=== PATIENT | male | born 1955 | race Caucasian/White ===

== ENCOUNTER 2021-11-26 09:30 | Outpatient (CLI) | payer MEDICARE, SELFPAY ==
[2021-11-26 13:27] LABS: Basophils Absolute Auto 0.04 K/uL (0.00-0.30); Basophils Percent Auto 0.7 % (0.0-3.0); Eosinophils Absolute Auto 0.02 K/uL (0.00-0.50); Eosinophils Percent Auto 0.3 % (0.0-7.0); Hematocrit 44.5 % (37.0-53.0); Hemoglobin* 14.9 gm/dL (13.5-17.5); Immature Granulocytes Abs Auto 0.01 K/uL (0.00-0.30); Lymphocytes Percent Auto 19.1 % (20-44); Mean Corpuscular HGB Conc 34 gm/dL (32-36); Mean Corpuscular Hemoglobin 32 pg (26-34); Mean Corpuscular Volume 96 fL (80-100); Monocytes Percent Auto 7.3 % (0.0-11.0); Neutrophils Percent Auto 72.4 % (42.0-72.0); Platelet Count* 252 K/uL (140-440); RDW Coefficient of Variation % 11.9 % (11.5-15.5); Red Blood Count 4.65 m/uL (4.30-5.90); White Blood Count* 5.91 K/uL (4.50-11.00)
[2021-11-26 13:33] LABS: Albumin* 4.4 g/dL (3.3-5.0); Chloride* 103 mmol/L (96-114)
[2021-11-26 13:34] LABS: Potassium* 4.8 mmol/L (3.6-5.1)
[2021-11-26 13:36] LABS: Aspartate Amino Transferase* 41 U/L (12-35); Bilirubin Total* 0.4 mg/dL (0.1-1.5); Blood Urea Nitrogen* 16 mg/dL (7-30); Carbon Dioxide* 28 mmol/L (20-32); Cholesterol* 208 mg/dL (90-199); Creatinine* 0.9 mg/dL (0.5-1.5); Estimated Glomerular Filt Rate 94 ml/min; Glucose* 116 mg/dL (60-115); Total Protein* 7.3 g/dL (6.0-8.3)
[2021-11-26 13:37] LABS: Alanine Aminotransferase* 49 U/L (4-50); Alkaline Phosphatase* 103 U/L (40-150); Calcium* 9.8 mg/dL (8.4-10.6); HDL Cholesterol* 61 mg/dL (>=40); LDL Cholesterol Calculated 116 mg/dL (<100); Triglycerides* 153 mg/dL (40-149)
[2021-11-26 13:42] LABS: Slide Review Reflex No
[2021-11-26 14:06] LABS: PSA Screen* 0.49 ng/mL (0.10-4.00)
[2021-11-26 14:39] LABS: Troponin I* < 0.01 ng/mL (0.01-0.04)
[2021-11-26 15:01] LABS: Sodium* 140 mmol/L (135-149)
[2021-12-01 13:51] LABS: Hemoglobin A1C* 5.47 % (0-5.6)
== END 2021-11-26 09:31 | disposition home or self-care (01) ==
PROVIDERS: PCP Nurse Practitioner Family; Visit Provider Nurse Practitioner Family
DX: Z00.00 Encounter for general adult medical examination without abnormal findings (principal); E78.5 Hyperlipidemia, unspecified; R07.89 Other chest pain; I10 Essential (primary) hypertension; R53.83 Other fatigue; Z12.5 Encounter for screening for malignant neoplasm of prostate; Z79.899 Other long term (current) drug therapy
CPT/HCPCS: 36415; 80053; 80061; 83036; 84153; 84484; 85025

== ENCOUNTER 2021-12-08 12:55 | Outpatient (CLI) | payer OTHER, SELFPAY ==
--- NOTE | 2021-12-08 13:00 | CRLHL7_ITS ---
For Patients: As a result of the Cures Act, medical imaging exams and procedure reports are released immediately into your electronic medical record. You may view this report before your referring provider. If you have questions, please contact your health care provider. BILATERAL CAROTID ULTRASOUND CLINICAL HISTORY: Atherosclerosis. COMPARISON: None. TECHNIQUE: The carotid circulations and the vertebral arteries in the neck were examined with larson-scale ultrasound, color-flow and Doppler spectral analysis. Degrees of stenosis were determined using SRU 2002 Consensus Panel Criteria. FINDINGS: No significant plaque in the carotid arteries. Bilateral peak systolic velocities and ICA:CCA ratios are normal. Antegrade flow in the bilateral vertebral arteries. Waveforms are normal. PEAK SYSTOLIC VELOCITY RIGHT: Distal CCA: 59. Proximal ICA: 37. Mid-ICA: 47. Distal ICA: 68. ICA/CCA Ratio: 1.2. Vertebral artery: Antegrade 24. LEFT: RIGHT: Distal CCA: 40. Proximal ICA: 53. Mid-ICA: 52. Distal ICA: 66. ICA/CCA Ratio: 1.6. Vertebral artery: Antegrade 27. IMPRESSION: No evidence of plaque in the carotid arteries. Paulino Cummings M.D. Diagnostic/Musculoskeletal Radiologist [email or web address] GREGG/Dictated by: Paulino Cummings MD @ 12/08/2021 2:02:00 PM (Electronically Signed)
[2021-12-08] MEDS: PERFLUTREN LIPID MICROSPHERES 2 ML VIAL IV (16:15)
[2021-12-08 16:44] VITALS: BP 164/93
--- NOTE | 2021-12-08 16:58 | PM.ST ---
Stress Test Note Date Date of test: 12/08/21 Providers Referring provider: Malissa Zuñiga Primary care provider: Malissa Zuñiga Stress test physician: Narciso Quiroga Stress Test Note Stress test ordered: Stress Echo Indication for test: Chest pain Results discussion: This pleasant 66-year-old gentleman presents here for evaluation of chest pain as ordered by his primary care physician. Discussion the risks benefits side effects he would like to proceed pretest EKG shows normal sinus rhythm with a ventricular rate of 76 a blood pressure 146/88, there is some ST wave flattening noted throughout the precordium significance of which is unknown. Cardiac stress test medical history form is reviewed entirely. Following normal [place] protocol patient is exercised for a total time of 6 minutes 2 seconds, test is terminated because of fulfillment of protocol, there was some fatigue but no specific anginal equivalent such as chest pain shortness of breath was noted. He recovered normally in the recovery period, review of the tracing showed no evidence of ST wave changes suggestive of ischemia, there is no dysrhythmias. Impression: Negative electrographic portion of stress echo Follow up suggested: Follow-up with primary care suggested after Cardiology over read of the echo portion, clinical correlation with this will be needed, patient left this testing facility in excellent condition back to baseline
== END 2021-12-08 12:56 | disposition home or self-care (01) ==
PROVIDERS: PCP Nurse Practitioner Family; Visit Provider Nurse Practitioner Family
DX: R09.89 Other specified symptoms and signs involving the circulatory and respiratory systems; R07.9 Chest pain, unspecified; R53.83 Other fatigue; I10 Essential (primary) hypertension; E78.5 Hyperlipidemia, unspecified
CPT/HCPCS: 93325; 93351; 93880; Q9957

== ENCOUNTER 2022-02-09 10:19 | Outpatient (CLI) | payer MEDICARE, SELFPAY ==
--- NOTE | 2022-02-09 11:32 | W.ANESCHARGE ---
Anesthesia Charges Start Date/Time Anesthesia Start Date: 02/09/22 Anesthesia Start Time: 11:15 Stop Date/Time Anesthesia Stop Date: 02/09/22 Anesthesia Stop Time: 11:45 Summary Emergency: No
--- NOTE | 2022-02-09 11:46 | W.ANESCHARGE ---
Anesthesia Charges Start Date/Time Anesthesia Start Date: 02/09/22 Anesthesia Start Time: 11:15 Stop Date/Time Anesthesia Stop Date: 02/09/22 Anesthesia Stop Time: 11:45 Summary Emergency: No
== END 2022-02-09 10:20 | disposition home or self-care (01) ==
LOC: OP CLINIC 10:20
PROVIDERS: PCP Nurse Practitioner Family; Visit Provider Surgery
DX: K22.70 Barrett's esophagus without dysplasia (principal); K22.89 Other specified disease of esophagus; K92.2 Gastrointestinal hemorrhage, unspecified
CPT/HCPCS: 00731; 43239; 88305; J2704

== ENCOUNTER 2023-03-07 08:36 | Outpatient (CLI) | payer MEDICARE, SELFPAY | END 2023-03-07 08:37 | disposition home or self-care (01) | PROVIDERS: PCP Nurse Practitioner Family; Visit Provider Nurse Practitioner Family | DX: M54.9 Dorsalgia, unspecified (principal) | CPT/HCPCS: 87086 ==

== ENCOUNTER 2023-04-19 09:27 | Outpatient (CLI) | payer MEDICARE, SELFPAY | END 2023-04-19 09:28 | disposition home or self-care (01) | PROVIDERS: PCP Nurse Practitioner Family; Visit Provider Nurse Practitioner Family | DX: Z00.00 Encounter for general adult medical examination without abnormal findings (principal); I10 Essential (primary) hypertension; E78.5 Hyperlipidemia, unspecified; Z12.5 Encounter for screening for malignant neoplasm of prostate; Z13.0 Encounter for screening for diseases of the blood and blood-forming organs and certain disorders involving the immune mechanism | CPT/HCPCS: 80053; 80061; 85025; G0103 ==

== ENCOUNTER 2023-04-22 07:32 | Outpatient (CLI) | payer MEDICARE, SELFPAY | END 2023-04-22 07:33 | disposition home or self-care (01) | PROVIDERS: PCP Nurse Practitioner Family; Visit Provider Nurse Practitioner Family | DX: R07.89 Other chest pain (principal) | CPT/HCPCS: 83880; 84484 ==

== ENCOUNTER 2023-05-09 13:19 | Outpatient (CLI) | payer MEDICARE, SELFPAY | END 2023-05-09 13:20 | disposition home or self-care (01) | PROVIDERS: PCP Nurse Practitioner Family; Visit Provider Nurse Practitioner Family | DX: R06.02 Shortness of breath (principal); N19 Unspecified kidney failure | CPT/HCPCS: 80048; 83880 ==

== ENCOUNTER 2023-08-10 12:50 | Outpatient (CLI) | payer MEDICARE, SELFPAY ==
--- NOTE | 2023-08-10 13:00 | CT_ITS ---
Patient: PARTH AQUINO Facility:?[facility] Patient ID:?[id number] Site Patient ID:?[id number]. Site :?[id number] Study:?CT-Chest LUNG SCREENING-08/10/2023 1:20:46 PM Ordering Physician:SHAWN Final Report: INDICATION: Lung cancer screening. TECHNIQUE: Low-dose lung cancer screening non-contrast CT chest. Dose reduction techniques were used. COMPARISON: None. FINDINGS: NODULES: 5 millimeter right middle lobe nodule medially few additional tiny micro nodules. A 4 millimeter nodule along the left major fissure on a 4 millimeter peripheral left lower lobe nodule on 06/09 14. A 4 millimeter right lower lobe nodule on LUNGS AND PLEURA: Normal. MEDIASTINUM: Ectasia of the ascending thoracic aorta measuring 3.8 centimeter median sternotomy. Heart size normal. CORONARY ARTERY CALCIFICATION: Dense coronary artery calcification. LIMITED UPPER ABDOMEN: Cholecystectomy MUSCULOSKELETAL: Normal. IMPRESSION: 1. Several pulmonary nodules measuring up to 5 millimeters and micro nodules. LUNG-RADS CATEGORY: 2: Benign. RADIOLOGIST RECOMMENDATION: Continue annual screening with low-dose CT chest in 12 months. Please note that all CT scans at this facility use dose modulation, iterative reconstruction, and/or weight-based dosing when appropriate to reduce radiation dose to as low as reasonably achievable. Dictated by Marilyn Cardenas MD @ 08/11/2023 6:03:19 AM Signed by:?Marilyn Cardenas MD @08/11/2023 6:03:19 AM (Electronic Signature)
== END 2023-08-10 12:51 | disposition home or self-care (01) ==
LOC: CT 12:51
PROVIDERS: PCP Nurse Practitioner Family; Visit Provider Nurse Practitioner Family
DX: Z12.2 Encounter for screening for malignant neoplasm of respiratory organs (principal); R91.8 Other nonspecific abnormal finding of lung field; F17.210 Nicotine dependence, cigarettes, uncomplicated
CPT/HCPCS: 71271

== ENCOUNTER 2023-08-12 09:47 | Outpatient (CLI) | payer MEDICARE, SELFPAY | END 2023-08-12 09:48 | disposition home or self-care (01) | PROVIDERS: PCP Nurse Practitioner Family; Visit Provider Nurse Practitioner Family | DX: E78.5 Hyperlipidemia, unspecified (principal) | CPT/HCPCS: 80061; 80076 ==

== ENCOUNTER 2023-11-22 08:13 | Outpatient (CLI) | payer MEDICARE, SELFPAY | END 2023-11-22 08:14 | disposition home or self-care (01) | PROVIDERS: PCP Nurse Practitioner Family; Visit Provider Nurse Practitioner Family | DX: E78.5 Hyperlipidemia, unspecified (principal) | CPT/HCPCS: 80061; 80076 ==

== ENCOUNTER 2023-12-29 07:27 | Outpatient (CLI) | payer OTHER, SELFPAY ==
--- OUTSIDE RECORDS SUMMARY | 2023-12-29 07:33 | XMS_ITS | Referral Summary ---
Author Organization [facility] Address [address] [place] [address] Care Team Providers Care Fish Egg Packer Name Role Phone Elsewhere, Pcp Primary Care Provider Unavailabl e Source Comments Patient records contain information from all sites at [facility]. For routine questions regarding patient records, call [phone] during business hours, M-F 8:00 AM - 5:00 PM Central Time. Record requests for emergency care only can be directed to [phone] at any time.[facility] Encounters Date Type Department Care Team Description 12/11/2023 8:31 PM CDT - 12/11/2023 9:44 PM CDT Emergency [facility] [address] [place] [phone] Demetrius Monroe, P.A.-C. Laceration Without Foreign Body Right Index Finger Without Damage To Nail Initial (Primary Dx) Discharge Disposition: Home or Self Care 10/31/2023 Clinical Communication Department of Nicotine Dependence, [facility], in [place], [place] [address] [place] [address] Inna Olivares M.A., C.T.T.S., M.S.W. Nicotine Dependence from Last 3 Months Allergies Active Allergy Reactions Criticality Noted Date Comments Phenytoin Sodium Extended Headache High 08/08/2009 Severe Hydromorphone Other (see comments) Medium 06/25/2015 Bad dreams Medications Medication Sig Dispensed Refills Start Date End Date Status aspirin 81 mg chewable tablet Chew 1 tablet every morning. 04/23/2015 Active traMADoL (ULTRAM) 50 mg tablet Take 50 mg by mouth 2 (two) times a day as needed. 12/24/2020 Active omeprazole (PriLOSEC OTC) 20 mg EC tablet Take ONE a day for GERD as needed 05/22/2018 Active MULTIVITAMIN WITH IRON ORAL Multiple Vitamins with Iron oral tablet See Instructions, one capsule per day 07/07/2013 Active nicotine (Nicoderm CQ) 7 mg/24 hr patch Apply 21 mg patch daily for 4-6 weeks, then taper by 7-14 mg steps every 2-6 weeks until off. Pharmacy - Place on file 28 patch 3 04/26/2023 Active Additional Information Patient not taking.Reported on 07/27/2023 nicotine (Nicoderm CQ) 14 mg/24 hr patch Apply 21 mg patch daily for 4-6 weeks, then taper by 7-14 mg steps every 2-[address] on file 28 patch 3 04/26/2023 Active nicotine (Nicoderm CQ) 21 mg/24 hr patch Apply 21 mg patch daily for 4-6 weeks, then taper by 7-14 mg steps every 2-6 weeks until off. 28 patch 3 04/26/2023 Active Additional Information Patient not taking.Reported on 07/27/2023 acetaminophen (TYLENOL) 500 mg tablet Take 2 tablets (1,000 mg total) by mouth 4 (four) times a day. 05/05/2023 Active melatonin 5 mg tablet Take 1 tablet (5 mg total) by mouth at bedtime as needed (Sleep). 30 tablet 2 05/05/2023 Active Additional Information Patient not taking.Reported on 07/27/2023 sennosides-docusa te sodium (SENOKOT-S) 8.6-50 mg per tablet Take 2 tablets by mouth 2 (two) times a day as needed for constipation. 05/05/2023 Active metoprolol tartrate (LOPRESSOR) 50 mg tablet Take 1 tablet (50 mg total) by mouth 2 (two) times a day. 60 tablet 11 05/05/2023 Active furosemide (LASIX) 20 mg tablet Take 2 tablets (40 mg total) by mouth daily for 7 days. Take for seven days, then to be reassessed by primary care provider. 14 tablet 05/05/2023 Active potassium chloride (K-TAB) 20 mEq CR tablet Take 1 tablet (20 mEq total) by mouth daily. Take for 7 days with course of Lasix, continuation at discretion of PCP. 30 tablet 05/05/2023 Active nicotine (Nicoderm CQ) 7 mg/24 hr patch Apply 21 mg patch daily for 4-6 weeks, then taper by 7-14 mg steps every 2-6 weeks until off. Pharmacy - Place on file 28 patch 3 06/14/2023 Active Additional Information Patient not taking.Reported on 07/27/2023 lisinopriL (PRINIVIL,ZESTRIL ) 5 mg tablet Take 5 mg by mouth daily. 06/13/2023 Active colchicine (COLCRYS) 0.6 mg tablet Take 1 tablet (0.6 mg total) by mouth daily. 30 tablet 2 07/27/2023 07/26/2024 Active rosuvastatin (CRESTOR) 40 mg tablet Take 1 tablet (40 mg total) by mouth daily. 90 tablet 3 07/27/2023 07/26/2024 Active ezetimibe (ZETIA) 10 mg tablet Take 1 tablet (10 mg total) by mouth daily. 90 tablet 3 07/28/2023 07/27/2024 Active nicotine (NICODERM CQ) 14 mg/24 hr patch Apply 14 mg patch daily for four to six weeks, then taper to 7 mg for two to six weeks until off. 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 Overview (04/09/2019): Added automatically from request for surgery [id number] Hematochezia 04/09/2019 Overview (04/09/2019): Added automatically from request for surgery [id number] Hypertension 03/17/2010 Pain Back Resolved Problems Problem Noted Date Diagnosed Date Resolved Date Acute Metabolic Acidosis 04/28/2023 Leukocytosis 04/28/2023 05/03/2023 Immunizations Name Administration Dates Next Due SARS-COV-2 (COVID-19) - PFIZ ER (Discontinued)(12 years or older) 07/15/2020,06/20/2020 Td (Adult), adsorbed 12/09/2008 Tdap 12/11/2023 Social History Tobacco Use Types Packs/Day Years Used Date Smoking Tobacco: Former Cigarettes 0.3 56.1 0 04/11/1967 - 05/12/2023 Smokeless Tobacco: Never Alcohol Use Standard Drinks/Week Comments Yes 7 (1 standard drink = 0.6 oz pur e alcohol) [facility] Utilities Answer Date Recorded In the past 12 months has [facility] gas, oil, or water [employer] threatened to shut off services in your home? No 05/02/2023 Humiliation, Afraid, Rape, and Kick questionnair e Answer Date Recorded Within the last year, have y ou been afraid of your partner or ex-partner? No 05/02/2023 Within the last year, have y ou been humiliated or emotionally abused in other ways by your partner or ex-partner? No Within the last year, have y ou been kicked, hit, slapped, or otherwise physically hurt by your partner or ex-partner? No 05/02/2023 Within the last year, have y ou been raped or forced to have any kind of sexual activity by your partner or ex-partner? No 05/02/2023 PHQ-2 Answer Date Recorded PHQ-2 Score 1 05/17/2023 Hunger Vital Sign Answer Date Recorded Within the past 12 months, y ou worried that your food would run out before you got the money to buy more. Never true 05/02/19 24 Within the past 12 months, t he food you bought just didn't last and you didn't have money to get more. Never true 05/02/2023 PRAPARE - Transportation Answer Date Re corded In the past 12 months, has l ack of transportation kept you from medical appointments or from getting medications? No 04/12 In the past 12 months, has l ack of transportation kept you from meetings, work, or from getting things needed for daily living? No 05/02/2023 Depression Answer Date Recor ded PHQ-9 Total Score (max 27) 6 05/17 Nutrition Answer Date Recorded Nutrition: EVOO Fat Source 13 11/05 Nutrition: Servings of Fruits/Vegetables per Day Not on file 11/06/2019 Dental Answer Date Recorded Dental: Regular Dentist Unknown 06/06/19 21 Housing Stability Answer Date Recorded What is your living situation today? I have a [facility] place to live 05/02/2023 Sex and Gender Information Value Date Recorded Sex Assigned at Not on file Gender Identity Not on file Sexual Orientation Not on file Last Filed Vital Signs Vital Sign Reading Time Taken Comments Blood Pressure 103/66 12/11/2023 8:35 PM CDT Pulse 82 12/11/2023 8:35 PM CDT Temperature 36.2 ??C (97.2 ??F) 12/11/2023 8:35 PM CD T Respiratory Rate 18 12/11/2023 8:35 PM CDT Oxygen Saturation 97% 12/11/2023 8:35 PM CDT Inhaled Oxygen Concentration - - Weight 100 kg (220 lb 7.4 oz) 12/11/2023 8:33 PM CDT Height 172 cm (5' 7.72) 04/28/2023 7:37 AM MOVEMENT THERAPIST Body Mass Index 33.8 04/28/2023 7:37 AM MOVEMENT THERAPIST Plan of Treatment Not on file Medical Devices Implanted Type Area Technician Anatomic Pathology Device Identifier Shelf Expiration Date Model / Serial / Lot Conversions - Default Historical Implant Device Implanted:01/10 (Quantity not on file) Aneurysm Clip Description:Device Status Te xt - AneurClip. [place] Screw 2 Canc 6.5 X 35 - [id number] Implanted:Qty: 2 on 03/18/2010 Hardware e.g. pins/screw s/rods Matt [employer] - [employer] Description:Device Manufactu rer - J & J Ortho. Device Status Text - [id number]. Clp Hrzn Ti 24 Clp Ricardo - [id number] Implanted:Qty: 1 on 04/28/2023 by Jc Pan M.D. at [facility] Hardware e.g. pins/screw s/rods N/A: Chest [employer] [id number] / / Clp Hrzn Ti 24 Clp Sm Red - [id number] Implanted:Qty: 1 on 04/28/2023 by Jc Pan M.D. at [facility] Hardware e.g. pins/screw s/rods N/A: Chest [employer] [id number] / / Clp Hrzn Ti 24 Clp Sm Red - [id number] Implanted:Qty: 1 on 04/28/2023 by Jc Pan M.D. at [facility] Hardware e.g. pins/screw s/rods N/A: Chest [employer] [id number] / / Clp Hrzn Ti 24 Clp Md Ricardo - [id number] Implanted:Qty: 1 on 04/28/2023 by Jc Pan M.D. at [facility] Hardware e.g. pins/screw s/rods N/A: Chest [employer] [id number] 01/25/2028 [id number] / / [id number] [place] Shell Multi 2 60mm - Cheng [id number] Implanted:Qty: 1 on 03/18/2010 Hip Implant Other/Legacy - See Implant Description [employer] Description:Device Manufactu rer - J & J Ortho. Body Location - Other. Left. Device Status Text - [id number] [id number]. [place]-Stem [place] 7 Std - Cheng [id number] Implanted:Qty: 1 on 03/18/2010 Hip Implant Other/Legacy - See Implant Description [employer] Description:Device Manufactu rer - J & J Ortho. Body Location - Other. Left. Device Status Text - [id number] [id number]. Dep. Head M-Spec 40mm -2 Offset - Cheng [id number] Implanted:Qty: 1 on 03/18/2010 Hip Implant Other/Legacy - See Implant Description [employer] Description:Device Manufactu rer - J & J Ortho. Body Location - Other. Left. Device Status Text - [id number] [id number]. [place] Liner Altrx +4 Neut 40x60 - Cheng [id number] Implanted:Qty: 1 on 03/18/2010 Hip Implant Other/Legacy - See Implant Description [employer] Description:Device Manufactu rer - J & J Ortho. Body Location - Other. Left. Device Status Text - HIP [id number]. Conversions - Default Historical Implant Device Implanted:01/10 (Quantity not on file) Hip Implant Description:Device Status Te xt - Hip Imp. Peg-Global [place] Glenoid Sz 52 - Cheng [id number] Implanted:Qty: 1 on 04/24/2015 Shoulder Implant Other/Legacy - See Implant Description [employer] Description:Device Manufactu rer - J & J Healthcare. Body Location - Other. Left. Device Status Text - [id number]. Global-Deedee Prox [place] 12 X 135 - Cheng [id number] Implanted:Qty: 1 on 04/24/2015 Shoulder Implant Other/Legacy - See Implant Description Internet [employer] - [employer] Description:Device Manufactu rer - J & J Healthcare. Body Location - Other. Left. Device Status Text - [id number]. Stem Global Standard Sz 12 X 120mm - Cheng [id number] Implanted:Qty: 1 on 04/24/2015 Shoulder Implant Other/Legacy - See Implant Description [employer] Description:Device Manufactu rer - J & J Healthcare. Body Location - Other. Left. Device Status Text - [id number]. J J Global Head Humeral 56 X 18mm Ecc. - Cheng [id number] Implanted:Qty: 1 on 04/24/2015 Shoulder Implant Other/Legacy - See Implant Description Internet [employer] - [employer] Description:Device Manufactu rer - J & J Healthcare. Body Location - Other. Left. Device Status Text - [id number]. Procedures Procedure Name Priority Date/Time Associated Diagnosis Comments LIPID PANEL, S Routine 07/27/2023 9:20 AM CDT Bypass Coronary Artery Graft Status Post Hyperlipidemia BASIC METABOLIC PANEL, S/P Routine 05/05/2023 8:13 AM MOVEMENT THERAPIST COLONOSCOPY 06/04/2019 8:[address] ABDOMEN PELVIS WITH IV CONTRAST Routine 06/25/2015 6:25 AM CDT from Last 3 Months or Most Recently Relevant to Health Maintenance Results * Lipid Panel (07/27/2023 9:20 AM CDT) Triglycerides 111 mg/dL 07/27/2023 9:52 AM CDT CNFL Comment: ----REFERENCE VALUE---- Normal: <150 mg/dL Borderline High: 150-199 mg/dL High: 200-499 mg/dL Very High: > or =500 mg/dL Cholesterol, Total 173 mg/dL 2023 9:52 AM CDT CNFL Comment: ----REFERENCE VALUE---- Desirable: < 200 mg/dL Borderline High: 200 - 239 mg/dL High: > or = 240 mg/dL Cholesterol, LDL, Calculated 93 mg/dL 07/27/2023 9:52 AM CDT CNFL Comment: ----REFERENCE VALUE---- Desirable: <100 mg/dL Above Desirable: 100-129 mg/dL Borderline High: 130-159 mg/dL High: 160-189 mg/dL Very High: >=190 mg/dL ----ADDITIONAL INFORMATION---- LDL cholesterol calculated using the Hernandez/NIH equation. Cholesterol, HDL 60 >=40 mg/dL 07/27/2023 9:52 AM CDT CNFL Cholesterol, Non-HDL, Calculated 113 mg/dL 07/27/2023 9:52 AM CDT CNFL Comment: ----REFERENCE VALUE---- Desirable: <130 mg/dL Above Desirable: 130-159 mg/dL Borderline High: 160-189 mg/dL High: 190-219 mg/dL Very High: > or =220 mg/dL Fasting (8 HR or more) Unknown 07/27/2023 9:23 AM CDT CNFL Blood (Blood, Venous) 07/27/2023 9:20 AM CDT 07/27/2023 9:23 AM CDT Tal Roque M.D. LAB BLOOD ADD-ON [facility] [address] [place] [id number], [place] CNFL [facility] in [address] [address] * (ABNORMAL) Basic Metabolic Panel (05/05/2023 8:13 AM MOVEMENT THERAPIST) Potassium, S 3.5(L) 3.6 - 5.2 mmol/L 05/05/2023 9:33 AM MOVEMENT THERAPIST DTL Sodium, S 139 135 - 145 mmol/L 05/05/2023 9:33 AM MOVEMENT THERAPIST DTL Chloride, S 99 98 - 107 mmol/L 05/05/2023 9:33 AM MOVEMENT THERAPIST DTL Bicarbonate, S 28 22 - 29 mmol/L 05/05/2023 9:33 AM MOVEMENT THERAPIST DTL Anion Gap 12 7 - 15 05/05/2023 9:33 AM MOVEMENT THERAPIST DTL BUN (Blood Urea Nitrogen), S 11 8 - 24 mg/dL 05/05/2023 9:33 AM MOVEMENT THERAPIST DTL Creatinine 0.92 0.74 - 1.35 mg/dL 05/05/2023 9:33 AM MOVEMENT THERAPIST DTL Estimated GFR (eGFR) >90 >=60 mL/min/BSA 05/05/2023 9:33 AM MOVEMENT THERAPIST DTL Comment: Estimated GFR calculated using the 2020 CKD_EPI creatinine equation. Calcium, Total, S 8.9 8.8 - 10.2 mg/dL 05/05/2023 9:33 AM MOVEMENT THERAPIST DTL Glucose, S 160(H) 70 - 140 mg/dL 05/05/2023 9:33 AM MOVEMENT THERAPIST DTL Blood (Blood, Arterial) 05/05/2023 8:13 AM MOVEMENT THERAPIST 05/05/2023 8:49 AM MOVEMENT THERAPIST Kanu Thayer P.A.-C. LAB BLOOD ADD- ON [facility] [address] [place] [address], [facility] DTL [facility] [address] [place] [address] * COLONOSCOPY (06/04/2019 8:36 AM MOVEMENT THERAPIST) Narrative Procedure Note Timothy Kaba M.D. - 06/04/2019 8:36 AM CST [facility] Patient Name: Arthur Arambula Procedure Date: 06/04/2019 8:36 AM Date of : 1955 Age: 64 Gender: Male Procedure: Colonoscopy Providers: Timothy Zarco (Ordering Provider) Referring Provider: Timothy Kaba Pre-op Diagnoses: Hematochezia--One episode lasting for threedays Post-op Diagnoses: - One 7 mm polyp at the splenic flexure, removed with a cold snare. Resected and retrieved. - One 2 mm polyp in the cecum, removed with a cold snare. Resectedand retrieved. - Diverticulosis from sigmoid to hepatic flexure. - The examination was otherwise normal. Recommendation: - Repeat colonoscopy in 5 years for surveillance with split-dose prep (not all at once). Findings: A 7 mm polyp was found in the splenic flexure. The polyp was flat.The polyp was removed with a cold snare. Resection and retrieval were complete. A 2 mm polyp was found in the cecum. The polyp was sessile. The polyp was removed with a cold snare. Resection and retrieval werecomplete. Multiple medium-mouthed diverticula were found from sigmoid tohepatic flexure. The exam was otherwise without abnormality. Medicines: None, in addition to sedation given for the EGD Complications: No immediate complications. Estimated blood loss: Minimal. Procedure Details: The patient was seen, evaluated, and history reviewed. Airway and heart and lung exams were performed and were satisfactory for plannedsedation care. The risks, benefits and alternatives for the procedure and sedation were discussed andinformed consent was obtained. A procedural pause was conducted in the presence of assisting personnelto verify the correct patient identity and procedureto be performed. Throughout the procedure, the patient's blood pressure, pulse, and oxygen saturations were monitored continuously. The Colonoscope was introduced under directvision through the anus and advanced to the terminalileum. The colonoscopy was performed with ease. Thepatient tolerated the procedure well. The quality of the bowel preparation was evaluated using the BBPS ([place] Bowel Preparation Scale) with scores of: Right Colon = 1 (portion of mucosa seen, butother areas not well seen due to staining, residualstool and/or opaque liquid), Transverse Colon = 2(minor amount of residual staining, small fragments of stool and/or opaque liquid, but mucosa seen well) and Left Colon = 1 (portion of mucosa seen, but other areas not well seen due to staining,residual stool and/or opaque liquid). The total BBPS score equals 4. Sedation: Moderate (conscious) sedation was administered by the endoscopy nurse and supervised by the endoscopist. The patient's oxygen saturation, heart rate, blood pressure and response to care were monitored. Total physician intraservice time was 30 minutes. Timothy Kaba, 06/04/2019 9:05:09 AM This report has been signed electronically. Number of Addenda: 0 Note Initiated On: 06/04/2019 8:36 AM Timothy Kaba M.D. GI PROCEDURE ORDER [facility] * CT Abdomen Pelvis with IV Contrast (06/25/2015 6:25 AM CDT) Anatomical Region Laterality Modality Abdomen, Pelvis N/A Computed Tomogra phy 06/25/2015 6:25 AM CDT Impressions 06/25/2015 10:15 AM CDT 1. Negative for acute pulmonary embolism. 2. Probable dropped gallstone. ??No abscess or bowel obstruction. CHEST: ??Negative for acute pulmonary embolism. No focal consolidation, pleural fluid, or pneumothorax. Scarring or atelectasis in both lung bases. Mild diffuse bronchial wall thickening. 8 mm right middle lobe pulmonary nodule, unchanged since 04/11/2009 consistent with benignity. Probable 7 mm fissural lymph node (series 7, image 132) but this is technically indeterminate. 7 mm right lower lobe pulmonary nodule is also benign and unchanged since 04/11/09 (7/204). ??Several prominent mediastinal axillary lymph nodes may be reactive. Bovine aortic arch, a normal variant. Coronary artery calcifications. Left TSA. ABDOMEN/PELVIS: ??Interval cholecystectomy and umbilical hernia repair since 06/02/2015. Negative for postoperative fluid collection or bowel obstruction. No free intraperitoneal air. ??Tiny calcific density adjacent to the anteroinferior liver (series 2, image 30 and series 3, image 24) worrisome for dropped gallstone. Mild postoperative fluid and edema about the umbilical hernia repair site. Remainder unchanged. Hepatic steatosis. Duodenal diverticuli. Normal pancreas, adrenal glands, and spleen. Colonic diverticulosis. Bilateral THAs. Resultant streak artifact limits evaluation of the pelvis. Electronically signed by: ?? Sonya Simons MD [id number] 25-Jun-2015 06:50 I have reviewed the films/images and agree with the above interpretation. Electronically signed by: ?? Papa Brewster MD [id number] 25-Jun-2015 10:15 Narrative 06/25/2015 10:15 AM CDT 25-Jun-2015 06:25:00 ??Exam: CT ABDOMEN w & PELVIS w Indications: PE protocol. ??midepigastric, retrosternal pain. ??elevated ddimer and LFTs; PE, pancreatic etiology ORIGINAL REPORT - 25-Jun-2015 06:50:00 EXAM: CT scan of the Chest with IV contrast ??(accession [id number]), CT scan of the Abdomen and Pelvis with IV contrast ??(accession [id number]) COMPARISON: ??[facility] CT 06/02/2015 Procedure Note Ton Brewster M.D. - 07/07/2017 25-Jun-2015 06:25:00 Exam: CT ABDOMEN w & PELVIS w Indications: PE protocol. midepigastric, retrosternal pain. elevatedddimer and LFTs; PE, pancreatic etiology ORIGINAL REPORT - 25-Jun-2015 06:50:00 EXAM: CT scan of the Chest with IV contrast (accession [id number]), CTscan of the Abdomen and Pelvis with IV contrast (accession [id number]) COMPARISON: [facility] CT 06/02/2015 IMPRESSION: 1. Negative for acute pulmonary embolism. 2. Probable dropped gallstone. No abscess or bowel obstruction. CHEST: Negative for acute pulmonary embolism. No focal consolidation, pleural fluid, or pneumothorax. Scarring oratelectasis in both lung bases. Mild diffuse bronchial wall thickening. 8mm right middle lobe pulmonary nodule, unchanged since 04/11/2009consistent with benignity. Probable 7 mm fissural lymph node (series 7,image 132) but this is technically indeterminate. 7 mm right lower lobepulmonary nodule is also benign and unchanged since 04/11/09 ().Several prominent mediastinal axillary lymph nodes may be reactive. Bovine aortic arch, a normal variant. Coronary artery calcifications. LeftTSA. ABDOMEN/PELVIS: Interval cholecystectomy and umbilical hernia repairsince 06/02/2015. Negative for postoperative fluid collection or bowelobstruction. No free intraperitoneal air. Tiny calcific density adjacentto the anteroinferior liver (series 2, image 30 and series 3, image 24)worrisome for dropped gallstone. Mild postoperative fluid and edema aboutthe umbilical hernia repair site. Remainder unchanged. Hepatic steatosis. Duodenal diverticuli. Normalpancreas, adrenal glands, and spleen. Colonic diverticulosis. BilateralTHAs. Resultant streak artifact limits evaluation of the pelvis. Electronically signed by: Sonya Simons MD [id number] 25-Jun-2015 06:50 I have reviewed the films/images and agree with the above interpretation. Electronically signed by: Papa Brewster MD [id number] 25-Jun-2015 10:15 Felicitas Moran P.A.-C. IMG CT PROCEDURES from Last 3 Months or Most Recently Relevant to Health Maintenance Advance Directives For more information, please contact: [phone] * Full Code (Latest Code Status on File) Date Activated Date Inactivated Comments 04/28/2023 3:47 PM 05/05/2023 1:38 PM Question Answer Comments Full Code: Not Discussed Due to: Not medically appropriate * Full Code Date Activated Date Inactivated Comments 04/23/2023 11:52 AM 04/28/2023 3:47 PM Question Answer Comments Full Code: Discussed Care Teams Fish Egg Packer Relationship Specialty Start Date End Date Elsewhere, Pcp PCP - General Internal Medicine 01/10/22
--- OUTSIDE RECORDS SUMMARY | 2023-12-29 07:33 | XMS_ITS | Encounter Summary ---
Author Organization [facility] Address [address] [place] [id number] Care Team Providers Care Plaster Model And Mold Maker Name Role Phone Elsewhere, Pcp Primary Care Provider Unavailabl e Reason for Visit * Reason Onset Date Comments Nicotine Dependence 10/31/2023 Encounter Details Date Type Department Care Team (Latest Contact Info) Description 10/31/2023 Clinical Communication Department of Nicotine Dependence, [facility], in [place], [place] [address] [place] [address] Inna Olivares M.A., C.T.T.S., M.S.W. [address] [place] [phone] Nicotine Dependence Social History Tobacco Use Types Packs/Day Years Used Date Smoking Tobacco: Former Cigarettes 0.3 56.1 0 04/11/1967 - 05/12/2023 Smokeless Tobacco: Never Alcohol Use Standard Drinks/Week Comments Yes 7 (1 standard drink = 0.6 oz pur e alcohol) [facility] Utilities Answer Date Recorded In the past 12 months has e electric, gas, oil, or water company threatened to shut off services in your [...] your living situation today? [facility] 05/02/2023 Sex and Gender Information Value Date Recorded Sex Assigned at Not on file Gender Identity Not on file Sexual Orientation Not on file documented as of this encounter Plan of Treatment Not on file documented as of this encounter Visit Diagnoses Not on filedocumented in this encounter Additional Health Concerns Assessment Noted Time PHQ-9 Depression Total Score: 6 05/17/19 24 8:51 AM REGISTERED NURSE AMBULATORY documented as of this encounter Care Teams Plaster Model And Mold Maker Relationship Specialty Start Date End Date Elsewhere, Pcp PCP - General Internal Medicine 01/10/22 documented as of this encounter
--- OUTSIDE RECORDS SUMMARY | 2023-12-29 07:33 | XMS_ITS ---
Author Organization [facility] Address [address] [place] [address] Care Team Providers Care Receiving Worker Name Role Phone Unavailable Unavailable Unavailable Surgery Details Not on file Complications Check Surgery Details section. Procedure Estimated Blood Loss Check Surgery Details section. Procedure Findings Check Surgery Details section. Procedure Specimens Taken Check Surgery Details section.
--- OUTSIDE RECORDS SUMMARY | 2023-12-29 07:33 | XMS_ITS | Continuity of Care Document ---
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 For routine questions regarding patient records, call [phone] during business hours, M-F 8:00 AM - 5:00 PM Central Time. Record requests for emergency care only can be directed to [phone] at any time.[facility] Encounters Date Type Department Care Team Description 4 8:31 PM CDT - 4 9:44 PM CDT Emergency [place] [facility] [address] [place] [phone] Demetrius Monroe, P.A.-C. Laceration Without Foreign Body Right Index Finger Without Damage To Nail Initial (Primary Dx) Discharge Disposition: Home or Self Care 4 Clinical Communication Department of Nicotine Dependence, [place], [place] [address] [place] [phone] Inna Olivares M.A., C.T.T.S., M.S.W. Nicotine Dependence 4 Clinical Communication Department of Nicotine Dependence, [facility] in [place], [place] [address] [place] [phone] Inna Olivares M.A., Marlen., M.S.W. Nicotine Dependence 4 Plan of Care Documentation Department of Cardiac Rehabilitation in [address] [phone] 4 Clinical Communication Department of Nicotine Dependence, [facility] in [place], [place] [address] [place] [address] Inna Olivares M.A., Torin, M.S.W. [facility] Follow Up 4 7:44 AM CDT - 4 11:59 PM CDT Hospital Encounter Department of Cardiac Rehabilitation in [address] [phone] Jc Pan M.D. Bypass Coronary Artery Graft Status Post Discharge Disposition: Home or Self Care 4 7:37 AM CDT - 4 11:59 PM CDT Hospital Encounter Department of Cardiac Rehabilitation in [address] [address] Jc Pan M.D. Bypass Coronary Artery Graft Status Post Discharge Disposition: Home or Self Care 4 7:37 AM CDT - 4 11:59 PM CDT Hospital Encounter Department of Cardiac Rehabilitation in [address] [address] Jc Pan M.D. Bypass Coronary Artery Graft Status Post Discharge Disposition: Home or Self Care 4 7:36 AM CDT - 4 11:59 PM CDT Hospital Encounter Department of Cardiac Rehabilitation in [address] [address] Jc Pan M.D. Bypass Coronary Artery Graft Status Post Discharge Disposition: Home or Self Care 4 7:37 AM CDT - 4 11:59 PM CDT Hospital Encounter Department of Cardiac Rehabilitation in [address] [address] Jc Pan M.D. Bypass Coronary Artery Graft Status Post Discharge Disposition: Home or Self Care 4 7:44 AM CDT - 4 11:59 PM CDT Hospital Encounter Department of Cardiac Rehabilitation in [address] [address] Jc Pan M.D. Bypass Coronary Artery Graft Status Post Discharge Disposition: Home or Self Care 4 Orders Only Department of Nicotine Dependence, [place], [place] [address] [place] [address] Inna Olivares M.A., C.T.T.S., M.S.W. 4 3:00 PM CDT Virtual Visit Department of Nicotine Dependence, [place], [place] [address] [place] [address] Inna Olivares M.A., C.T.T.S., M.S.W. Nicotine Dependence Cigarettes With Withdrawal (Primary Dx) 4 7:43 AM CDT - 4 11:59 PM CDT Hospital Encounter Department of Cardiac Rehabilitation in [address] [address] Jc Pan M.D. Bypass Coronary Artery Graft Status Post Discharge Disposition: Home or Self Care 4 7:35 AM CDT - 4 11:59 PM CDT Hospital Encounter Department of Cardiac Rehabilitation in [address] [address] Jc Pan M.D. Bypass Coronary Artery Graft Status Post Discharge Disposition: Home or Self Care 4 Orders Only Department of Cardiovascular Diseases in [address] [address] Tal Roque M.D. Non-ST Elevation Myocardial Infarction (HCC) (Primary Dx) 4 7:00 AM CDT - 4 11:59 PM CDT Hospital Encounter Department of Cardiac Rehabilitation in [address] [address] Jc Pan M.D. Bypass Coronary Artery Graft Status Post Discharge Disposition: Home or Self Care 4 8:30 AM CDT Comprehensive Visit Department of Cardiovascular Diseases in [address] [address] Tal Roque M.D. Hyperlipidemia (Primary Dx); Bypass Coronary Artery Graft Status Post Discharge Disposition: Home or Self Care 4 7:45 AM CDT - 4 11:59 PM CDT Hospital Encounter Department of Cardiac Rehabilitation in [address] [address] Jc Pan M.D. Bypass Coronary Artery Graft Status Post Discharge Disposition: Home or Self Care 4 Clinical Communication Department of Nicotine Dependence, [facility] in [place], [place] [address] [place] [address] Inna Olivares M.A., C.T.T.S., M.S.W. Med Question 4 7:46 AM CDT - 4 11:59 PM CDT Hospital Encounter Department of Cardiac Rehabilitation in [address] [address] Jc Pan M.D. Bypass Coronary Artery Graft Status Post Discharge Disposition: Home or Self Care 4 7:45 AM CDT - 4 11:59 PM CDT Hospital Encounter Department of Cardiac Rehabilitation in [address] [address] Jc Pan M.D. Bypass Coronary Artery Graft Status Post Discharge Disposition: Home or Self Care 4 Orders Only Department of Nicotine Dependence, [address] [address] Inna Olivares M.A., Garret.TShubhamTShubhamS., M.S.W. 4 Plan of Care Documentation Department of Cardiac Rehabilitation in [address] [address] 4 1:30 PM CDT Virtual Visit Department [place] [address] [place] [phone] Inna Olivares M.A., Garret.T.T.S., M.S.W. Nicotine Dependence Cigarettes With Withdrawal (Primary Dx) 4 7:45 AM CDT - 4 11:59 PM CDT Hospital Encounter Department of Cardiac Rehabilitation in [address] [address] Jc Pan M.D. Bypass Coronary Artery Graft Status Post Discharge Disposition: Home or Self Care 4 7:49 AM CDT - 4 11:59 PM CDT Hospital Encounter Department of Cardiac Rehabilitation in [address] [address] Jc Pan M.D. Bypass Coronary Artery Graft Status Post Discharge Disposition: Home or Self Care 4 7:37 AM CDT - 4 11:59 PM CDT Hospital Encounter Department of Cardiac Rehabilitation in [address] [address] Jc Pan M.D. Bypass Coronary Artery Graft Status Post Discharge Disposition: Home or Self Care 4 7:48 AM CDT - 4 11:59 PM CDT Hospital Encounter Department of Cardiac Rehabilitation in [address] [address] Jc Pan M.D. Bypass Coronary Artery Graft Status Post Discharge Disposition: Home or Self Care 4 7:44 AM CDT - 4 11:59 PM CDT Hospital Encounter Department of Cardiac Rehabilitation in [address] [address] Jc Pan M.D. Bypass Coronary Artery Graft Status Post Discharge Disposition: Home or Self Care 4 7:41 AM CDT - 4 11:59 PM CDT Hospital Encounter Department of Cardiac Rehabilitation in [address] [address] Jc Pan M.D. Bypass Coronary Artery Graft Status Post Discharge Disposition: Home or Self Care 4 7:38 AM CDT - 4 11:59 PM CDT Hospital Encounter Department of Cardiac Rehabilitation in [address] [address] Jc Pan M.D. Bypass Coronary Artery Graft Status Post Discharge Disposition: Home or Self Care 4 7:44 AM CDT - 4 11:59 PM CDT Hospital Encounter Department of Cardiac Rehabilitation in [address] [address] Jc Pan M.D. Bypass Coronary Artery Graft Status Post Discharge Disposition: Home or Self Care 4 [facility] Only Department of Nicotine Dependence, [facility], in [place] [address] [place] [address] Inna Olivares M.A., C.T.T.S., M.S.W. 4 1:00 PM CDT Virtual Visit Department of Nicotine Dependence, [facility], in [place], [place] [address] [place] [address] Inna Olivares M.A., MessiS., M.S.W. Nicotine Dependence Cigarettes With Withdrawal (Primary Dx) 4 7:33 AM CDT - 4 11:59 PM CDT Hospital Encounter Department of Cardiac Rehabilitation in [address] [address] Jc Pan M.D. Bypass Coronary Artery Graft Status Post Discharge Disposition: Home or Self Care 4 7:46 AM CDT - 4 11:59 PM CDT Hospital Encounter Department of Cardiac Rehabilitation in [address] [address] Jc Pan M.D. Bypass Coronary Artery Graft Status Post Discharge Disposition: Home or Self Care 4 7:42 AM CDT - 4 11:59 PM CDT Hospital Encounter Department of Cardiac Rehabilitation in [address] [address] Jc Pan M.D. Bypass Coronary Artery Graft Status Post Discharge Disposition: Home or Self Care 4 7:47 AM CDT - 4 11:59 PM CDT Hospital Encounter Department of Cardiac Rehabilitation in [address] [address] Jc Pan M.D. Bypass Coronary Artery Graft Status Post Discharge Disposition: Home or Self Care 4 Orders Only Department of Nicotine Dependence, [facility], in [place], [place] [address] [place] [address] Inna Olivares M.A., Marlen., M.S.W. 4 Clinical Communication Department of Nicotine Dependence, [place], [place] [address] [place] [phone] Inna Olivares M.A., Torin, M.S.W. [facility] Med Request 4 Plan of Care Documentation Department of Cardiac Rehabilitation in [address] [address] 4 1:30 PM DEPARTURE CLERK Virtual Visit Department of Nicotine Dependence, [place], [place] [address] [place] [phone] Inna Olivares M.A., Marlen., M.S.W. Nicotine Dependence Cigarettes With Withdrawal (Primary Dx) 4 7:38 AM DEPARTURE CLERK - 4 11:59 PM DEPARTURE CLERK Hospital Encounter Department of Cardiac Rehabilitation in [address] [address] Jc Pan M.D. Bypass Coronary Artery Graft Status Post Discharge Disposition: Home or Self Care 4 7:40 AM DEPARTURE CLERK - 4 11:59 PM DEPARTURE CLERK Hospital Encounter Department of Cardiac Rehabilitation in [address] [address] Jc Pan M.D. Bypass Coronary Artery Graft Status Post Discharge Disposition: Home or Self Care 4 Clinical Communication Department of Nicotine Dependence, [address] [address] Inna Olivares M.A., Torin, M.S.W. [facility] Appointment 4 7:53 AM DEPARTURE CLERK - 4 11:59 PM DEPARTURE CLERK Hospital Encounter Department of Cardiac Rehabilitation in [address] [address] Jc Pan M.D. Bypass Coronary Artery Graft Status Post Discharge Disposition: Home or Self Care 4 Clinical Communication Department of Cardiovascular Surgery in [place], [place] [address] [place] [address] Jc Pan M.D. Post Hospital Follow-up 4 7:49 AM DEPARTURE CLERK - 4 11:59 PM DEPARTURE CLERK Hospital Encounter Department of Cardiac Rehabilitation in [address] [address] Jc Pan M.D. Bypass Coronary Artery Graft Status Post Discharge Disposition: Home or Self Care 4 7:49 AM DEPARTURE CLERK - 4 11:59 PM DEPARTURE CLERK Hospital Encounter Department of Cardiac Rehabilitation in [address] [address] Jc Pan M.D. Bypass Coronary Artery Graft Status Post Discharge Disposition: Home or Self Care 4 7:41 AM DEPARTURE CLERK - 4 11:59 PM DEPARTURE CLERK Hospital Encounter Department of Cardiac Rehabilitation in [address] [address] Jc Pan M.D. Bypass Coronary Artery Graft Status Post Discharge Disposition: Home or Self Care 4 7:48 AM DEPARTURE CLERK - 4 11:59 PM DEPARTURE CLERK Hospital Encounter Department of Cardiac Rehabilitation in [address] [address] Jc Pan M.D. Bypass Coronary Artery Graft Status Post Discharge Disposition: Home or Self Care 4 7:49 AM DEPARTURE CLERK - 4 11:59 PM DEPARTURE CLERK Hospital Encounter Department of Cardiac Rehabilitation in [address] [address] Jc Pan M.D. Bypass Coronary Artery Graft Status Post Discharge Disposition: Home or Self Care 4 Orders Only Department of Nicotine Dependence, [place], [place] [address] [place] [address] Inna Olivares M.A., Torin, M.S.W. 4 9:00 AM DEPARTURE CLERK Virtual Visit Department of Nicotine Dependence, [place], [place] [address] [place] [address] Inna Olivares M.A., Marlen., M.S.W. Nicotine Dependence Cigarettes With Withdrawal (Primary Dx) 4 7:49 AM DEPARTURE CLERK - 4 11:59 PM DEPARTURE CLERK Hospital Encounter Department of Cardiac Rehabilitation in [address] [address] Jc Pan M.D. Bypass Coronary Artery Graft Status Post Discharge Disposition: Home or Self Care 4 7:57 AM DEPARTURE CLERK - 4 11:59 PM DEPARTURE CLERK Hospital Encounter Department of Cardiac Rehabilitation in [address] [address] Jc Pan M.D. Bypass Coronary Artery Graft Status Post Discharge Disposition: Home or Self Care 4 7:55 AM DEPARTURE CLERK - 4 11:59 PM DEPARTURE CLERK Hospital Encounter Department of Cardiac Rehabilitation in [address] [address] Jc Pan M.D. Bypass Coronary Artery Graft Status Post Discharge Disposition: Home or Self Care 4 Plan of Care Documentation Department of Cardiac Rehabilitation in [address] [address] 4 7:51 AM DEPARTURE CLERK - 4 11:59 PM DEPARTURE CLERK Hospital Encounter Department of Cardiac Rehabilitation in [address] [address] Jc Pan M.D. Bypass Coronary Artery Graft Status Post Discharge Disposition: Home or Self Care 4 Orders Only Department of Nicotine Dependence, [facility], in [place], [place] [address] [place] [phone] Inna Olivares M.A., Torin, M.S.W. 4 1:00 PM DEPARTURE CLERK Virtual Visit Department of Nicotine Dependence, [facility], in [place], [place] [address] [place] [address] Inna Olivares M.A., Torin, M.S.W. Nicotine Dependence Cigarettes With Withdrawal (Primary Dx) 4 11:00 AM DEPARTURE CLERK Virtual Visit Department of Cardiovascular Surgery in [place], [place] [address] [place] [address] Dianne Majano APRN, C.N.P., D.N.P. Citlaly Iraheta APRN, C.N.P., D.N.P. Bypass Coronary Artery Graft Status Post 4 11:10 AM DEPARTURE CLERK - 4 11:38 AM DEPARTURE CLERK Hospital Encounter [facility], [facility], [facility], Sixth Floor [address] [place] [phone] Jethro Mckeon M.D. Olson, Lyle J, M.D. Crestanello, Juan A, M.D. Non-ST Elevation Myocardial Infarction (HCC) (Primary Dx); Nicotine Dependence Cigarettes With Withdrawal; Decline Functional Status [R53.81]; Bypass Coronary Artery Graft Status Post; Acute Respiratory Failure With Hypoxia (HCC) Discharge Disposition: Home or Self Care 4 11:40 PM DEPARTURE CLERK Ancillary Procedure Department of Cardiovascular Diseases 4 Clinical Communication RST HIM [address] [place] [address] Jc Pan M.D. 4 Clinical Communication RST [facility] [address] [place] [phone] Jc Pan M.D. 4 7:05 AM DEPARTURE CLERK Ancillary Procedure Department of Anesthesiology 4 6:45 AM DEPARTURE CLERK Ancillary Procedure [facility] [address] [place] [phone] Jc Pan M.D. 4 7:00 AM DEPARTURE CLERK - 4 2:35 PM DEPARTURE CLERK Surgery [facility] [address] [place] [phone] Jc Pan M.D. CORONARY ARTERY BYPASS GRAFT X 4 - INTERNAL MAMMARY ARTERY 4 7:29 AM DEPARTURE CLERK Anesthesia Event [facility] [place] [phone] Leandro Otoole M.D. Johnson, Wendy S, APRN, TOOL AND DIE MAKER LEVEL FIVE 4 Orders Only Department of Nicotine Dependence, [place], [place] [address] [place] [phone] Inna Olivares M.A., C.T.T.S., M.S.W. 4 Clinical Communication Department of Nicotine Dependence, [place], [place] [address] [place] [phone] Inna Olivares M.A., C.T.T.S., M.S.W. NDC Med Request 4 11:53 AM DEPARTURE CLERK - 4 1:08 PM DEPARTURE CLERK Surgery Division of Cardiovascular Diseases in [address] [address] Siva Veliz M.D. Coronary Angiography 4 4:52 PM DEPARTURE CLERK - 4 10:25 AM DEPARTURE CLERK Emergency [place] [facility] [address] [place] [phone] Layla Salmeron APRN, C.N.Connie Bautista, PShubhamA.-Garret., P.A., M.S. Jayce Almonte, Elpidio EMMANUEL., M.S.N. Non-ST Elevation Myocardial Infarction (HCC) (Primary Dx) Discharge Disposition: Acute Care Hospital 4 Intake [facility] 2 9:02 AM CDT - 2 9:34 AM CDT Emergency [place] [facility] [address] [place] [address], [place] [address] Sen Jefferson P.A.-C., P.A. Pain Knee Left (Primary Dx) Discharge Disposition: Home or Self Care 1 External Outreach Department of [facility] in [address] [address] Sen Soto P.A.-C., P.A. Contact With And (Suspected) Exposure To COVID-19 (Primary Dx) Discharge Disposition: Home or Self Care 1 8:20 AM CDT Admin Visit Department of [facility] in [address] [address] 1 3:20 PM CDT Immunization Department of [facility], [facility], [address] [address] Denny Thayer M.D. Encounter For COVID-19 Vaccine Immunization 1 3:20 PM DEPARTURE CLERK Immunization Department of [facility], [facility], [address] [address] Inna Wade M.D. Encounter For COVID-19 Vaccine Immunization (Primary Dx) 1 Orders Only [facility] Inna Carrasco M.D. 0 8:40 AM DEPARTURE CLERK Ancillary Procedure Department of Gastroenterology 0 7:55 AM DEPARTURE CLERK Ancillary Procedure Department of Gastroenterology 0 8:15 AM DEPARTURE CLERK - 0 9:35 AM DEPARTURE CLERK Surgery Department of Gastroenterology in [address] [address] Timothy Kaba M.D. COLONOSCOPY 0 7:24 AM DEPARTURE CLERK - 0 9:35 AM DEPARTURE CLERK Hospital Encounter Department of Gastroenterology in [address] [phone] Timothy Kaba M.D. Discharge Disposition: Home or Self Care 0 Clinical Communication Department of General Surgery in [address] [address] Carmel Rushing L.P.NShubham Communication (3 day endoscopy call) 9 Clinical Communication Department of Allergy in [address] [address] Aaliyah Pizarro, RShubhamN. Communication (colonoscopy and egd needed) 9 8:00 AM DEPARTURE CLERK - 9 11:59 PM DEPARTURE CLERK Hospital Encounter Department of Cardiovascular Diseases in [address] [phone] Malissa Zuñiga C.N.P. Hypertension Essential Primary; Bradycardia; Abnormal Electrocardiogram Discharge Disposition: Home or Self Care 8 1:00 PM DEPARTURE CLERK Comprehensive Visit Department of Rehabilitation Services in [address] [address] Brad Francis M.D. Sunny Scott, P.T. Pain Back (Primary Dx) 6 6:51 AM DEPARTURE CLERK - 7 1:56 PM CDT Hospital Encounter HX [facility] REHAB SRV Malissa Zuñiga C.N.P. 7 12:00 PM DEPARTURE CLERK - 7 2:25 PM DEPARTURE CLERK Hospital Encounter [facility] ENDOSCOPY Timothy Kaba M.D. 6 9:44 AM DEPARTURE CLERK - 6 11:00 PM CDT Hospital Encounter HX [facility] REHAB SRJaydon Leiva M.D. 6 1:11 PM CDT - 6 11:59 PM CDT Hospital Encounter [facility] SURGTiago Jordan D.O. 6 4:12 AM CDT - 6 7:15 AM CDT Hospital Encounter HX [facility] ED Samuel Cota M.D. 6 7:49 AM CDT - 6 11:59 PM CDT Hospital Encounter HX [facility]I Tiago Yanez D.OShubham 6 8:49 AM CDT - 6 11:59 PM CDT Hospital Encounter HX [facility] Tiago Yanez D.O. 6 9:46 AM DEPARTURE CLERK - 6 11:59 PM DEPARTURE CLERK Hospital Encounter [facility] SURGTiago Jordan D.O. 6 2:17 PM DEPARTURE CLERK - 6 10:50 AM DEPARTURE CLERK Hospital Encounter HX [facility] Tiago Yanez D.O. 6 4:33 PM DEPARTURE CLERK - 6 1:31 PM DEPARTURE CLERK Hospital Encounter HX [facility] INPT/OBSRV Cameron Julien M.D. 6 11:16 AM DEPARTURE CLERK - 6 4:29 PM DEPARTURE CLERK Hospital Encounter HX [facility] ED Samuel Cota M.D. 6 10:03 AM DEPARTURE CLERK - 6 12:36 PM DEPARTURE CLERK Hospital Encounter HX [facility] 2[facility] 4 - 4 11:59 PM CDT Hospital Encounter HX NO MAPPING 4 3:05 PM CDT - 4 11:59 PM CDT Hospital Encounter HX NO MAPPING Eleni Milner M.D. 4 1:31 PM CDT - 4 4:10 PM CDT Hospital Encounter [facility]X [facility] Magdalena Martinez M.D. 4 11:33 AM CDT - 4 11:59 PM CDT Hospital Encounter [facility] Marielena Leon M.D. 4 7:00 AM CDT - 4 11:59 PM CDT Hospital Encounter [facility]X [facility] ME Cassie Harris M.D. 4 2:43 PM CDT - 4 11:59 PM CDT Hospital Encounter [facility]X [facility] Denny Carmen M.D. 4 9:03 AM CDT - 4 2:42 PM CDT Hospital Encounter [facility] Samuel Cota M.D. 4 8:37 AM CDT - 4 11:59 PM CDT Hospital Encounter [facility] Marielena Leon M.D. 4 11:43 AM DEPARTURE CLERK - 4 11:59 PM DEPARTURE CLERK Hospital Encounter [facility]X [facility] Marielena Leon M.D. 4 7:53 AM DEPARTURE CLERK - 4 11:59 PM DEPARTURE CLERK Hospital Encounter [facility] Marielena Leon M.D. 3 9:28 AM DEPARTURE CLERK - 3 4:00 PM DEPARTURE CLERK Hospital Encounter [facility]X [facility] REHAB SRV Marielena Leon M.D. 3 10:49 AM DEPARTURE CLERK - 3 11:59 PM DEPARTURE CLERK Hospital Encounter [facility]X [facility] Marielena Leon M.D. 3 10:23 AM DEPARTURE CLERK - 3 11:59 PM DEPARTURE CLERK Hospital Encounter [facility]X [facility] Marielena Leon M.D. 3 4:04 PM DEPARTURE CLERK - 3 11:59 PM DEPARTURE CLERK Hospital Encounter [facility]X [facility] Marielena Leon M.D. 2 12:12 PM DEPARTURE CLERK - 2 11:59 PM DEPARTURE CLERK Hospital Encounter [facility]X [facility] Haley Portillo, N.Es. 2 10:30 AM DEPARTURE CLERK - 2 11:59 PM DEPARTURE CLERK Hospital Encounter [facility] Marielena Leon M.D. 2 10:41 AM DEPARTURE CLERK - 2 11:59 PM DEPARTURE CLERK Hospital Encounter [facility] Speedy Puentes III, M.D. 2 5:48 PM CDT - 2 11:59 PM CDT Hospital Encounter [facility] Samuel Cota M.D. 2 2:31 PM CDT - 2 11:59 PM CDT Hospital Encounter [facility] Samuel Cota M.D. 2 7:50 AM CDT - 2 11:59 PM CDT Hospital Encounter [facility] Marielena Leon M.D. 2 11:08 AM CDT - 2 11:59 PM CDT Hospital Encounter [facility] Marielena Leon M.D. 2 8:28 AM CDT - 2 11:59 PM CDT Hospital Encounter [facility]X [facility]ESST[facility] Azam Raphael M.D. 2 9:23 AM CDT - 2 11:59 PM CDT Hospital Encounter HX NO MAPPING Azam Raphael M.D. 2 8:32 AM DEPARTURE CLERK - 2 11:59 PM DEPARTURE CLERK Hospital Encounter [facility]X [facility] Marielena Leon M.D. 2 1:02 PM DEPARTURE CLERK - 2 11:59 PM DEPARTURE CLERK Hospital Encounter [facility]X [facility] Marielena Leon M.D. 2 11:58 AM DEPARTURE CLERK - 2 11:59 PM DEPARTURE CLERK Hospital Encounter [facility]X [facility] Speedy Puentes III, M.D. 2 7:58 AM DEPARTURE CLERK - 2 11:59 PM DEPARTURE CLERK Hospital Encounter HX [facility] Marielena Leon M.D. 1 9:01 AM DEPARTURE CLERK - 1 11:59 PM DEPARTURE CLERK Hospital Encounter [facility]X [facility] Marielena Leon M.D. 1 8:47 AM DEPARTURE CLERK - 1 11:59 PM DEPARTURE CLERK Hospital Encounter [facility]X [facility] Marielena Leon M.D. 1 8:07 PM CDT - 1 11:59 PM CDT Hospital Encounter [facility]X [facility] SLEEPSTUD Marielena Leon M.D. 1 7:06 PM CDT - 1 9:15 PM CDT Hospital Encounter [facility] ED Marcus Arroyo M.D. 1 7:55 AM CDT - 1 11:59 PM CDT Hospital Encounter [facility]X [facility] Marielena Leon M.D. 1 8:46 AM CDT - 1 11:59 PM CDT Hospital Encounter [facility]X [facility] Marielena Leon M.D. 1 8:51 AM DEPARTURE CLERK - 1 11:59 PM DEPARTURE CLERK Hospital Encounter HX [facility] Samuel Cota M.D. 1 9:54 AM DEPARTURE CLERK - 1 11:59 PM DEPARTURE CLERK Hospital Encounter HX [facility] ME Sen Bob M.D. 1 8:40 AM DEPARTURE CLERK - 1 11:59 PM DEPARTURE CLERK Hospital Encounter [facility]X [facility] MRI Provider, Historical 1 Hospital Encounter [facility]X [facility] INPT/OBSRV Marielena Leon M.D. 1 - 1 Hospital Encounter [facility] INPT/OBSRV Samuel Cota M.D. 0 7:16 AM DEPARTURE CLERK - 0 1:39 PM DEPARTURE CLERK Hospital Encounter HX [facility]2 ORTHOPEDICS 0 - 0 11:59 PM DEPARTURE CLERK Hospital Encounter HX NO Leandro Mancuso M.D. 0 Hospital Encounter [facility]X [facility] INPT/OBSRV Darryl Worthington M.D. 0 Hospital Encounter [facility] INPT/OBSRV Sheldon Marin M.D. 0 Hospital Encounter HX [facility] [facility] Sheldon Marin M.D. 0 Hospital Encounter [facility] Hemant Lee Jr., M.D. 0 Hospital Encounter [facility] Hemant Lee Jr., M.D. 0 8:16 AM CDT - 0 11:59 PM CDT Hospital Encounter [facility] Cliff Almaraz M.D. 0 - 0 11:59 PM CDT Hospital Encounter HX NO MAPPING Provider, Historical 0 Hospital Encounter [facility] Cliff Almaraz M.D. 0 - 0 11:59 PM CDT Hospital Encounter HX NO MAPPING Cliff Almaraz M.D. 0 Hospital Encounter [facility] Cliff Almaraz M.D. 0 - 0 11:59 PM CDT Hospital Encounter HX NO MAPPING Cliff Almaraz M.D. 0 Hospital Encounter [facility] Brad Francis M.D. 0 Hospital Encounter [facility] Vinay Naranjo M.D. 0 Hospital Encounter [facility] Vinay Naranjo M.D. 9 - 9 Hospital Encounter [facility]X [facility] Brad Francis M.D. 9 Hospital Encounter [facility]X [facility] Brad Francis M.D. 9 - 9 11:59 PM DEPARTURE CLERK Hospital Encounter HX [facility] Leigh Santos R.N. 9 - 9 11:59 PM DEPARTURE CLERK Hospital Encounter HX [facility] Cliff Robbins M.D. 9 Hospital Encounter [facility]X [facility] Laurie Gutierrez P.A.-Garret. 9 Hospital Encounter [facility]X [facility] Cliff Almaraz M.D. 9 - 9 11:59 PM CDT Hospital Encounter HX NO MAPPING Cliff Almaraz M.D. 9 Hospital Encounter HX [facility] Laurie Gutierrez P.A.-C. - 9 11:59 PM CDT Hospital Encounter HX [facility] Cliff Robbins M.D. - 9 11:59 PM CDT Hospital Encounter HX NO MAPPING Eze Zelaya, P.A.-C. - 9 11:59 PM CDT Hospital Encounter HX NO MAPPING Cliff Almaraz M.D. 9 Hospital Encounter HX [facility] Cliff Almaraz M.D. 9 Hospital Encounter [facility]X [facility] Eze Zelaya, P.A.-C. 9 10:09 AM CDT - 9 11:59 PM CDT Hospital Encounter HX [facility] Cliff Robbins M.D. 9 - 9 Hospital Encounter [facility] Cliff Almaraz M.D. 9 - 9 11:59 PM CDT Hospital Encounter HX NO MAPPING Eze Zelaya, P.A.-C. 9 Hospital Encounter [facility]X [facility] LilEze aj, P.A.-C. 9 - 9 11:59 PM CDT Hospital Encounter HX NO MAPPING Eze Zelaya, P.A.-C. 9 Hospital Encounter [facility]X [facility] Eze Zelaya, P.A.-C. 9 - 9 Hospital Encounter [facility] Cliff Almaraz M.D. 9 Hospital Encounter [facility]X [facility] Marielena Leon M.D. 9 9:59 AM CDT - 9 11:59 PM CDT Hospital Encounter [facility]X [facility] Cliff Robbins M.D. - 9 11:59 PM CDT Hospital Encounter HX NO MAPPING Cliff Almaraz M.D. 9 Hospital Encounter [facility]X [facility] Cliff Almaraz M.D. 9 Hospital Encounter [facility]X [facility] Brad Francis M.D. 9 - 9 11:59 PM CDT Hospital Encounter HX NO MAPPING Cliff Almaraz M.D. 9 Hospital Encounter [facility]X [facility] Cliff Almaraz M.D. 9 - 9 11:59 PM CDT Hospital Encounter [facility] Cliff Robbins M.D. 9 Hospital Encounter [facility]X [facility] Cliff Almaraz M.D. - 9 Hospital Encounter [facility]X [facility] Cliff Almaraz M.D. - 9 11:59 PM DEPARTURE CLERK Hospital Encounter HX NO MAPPING Cliff Almaraz M.D. - 9 11:59 PM DEPARTURE CLERK Hospital Encounter HX NO MAPPING Cliff Almaraz M.D. 9 Hospital Encounter [facility]X [facility] Cliff Almaraz M.D. 9 Hospital Encounter [facility]X [facility] Darryl Worthington M.D. - 9 11:59 PM DEPARTURE CLERK Hospital Encounter HX NO MAPPING Cliff Almaraz M.D. 9 Hospital Encounter [facility]X [facility] Cliff Almaraz M.D. - 9 Hospital Encounter [facility] Darryl Worthington M.D. 9 Hospital Encounter [facility]X [facility] Janet August M.D. - 9 Hospital Encounter [facility]X [facility] Darryl Worthington M.D. - 9 11:59 PM DEPARTURE CLERK Hospital Encounter HX NO MAPPING Cliff Almaraz M.D. 9 Hospital Encounter [facility]X [facility] Cliff Almaraz M.D. - 9 11:59 PM DEPARTURE CLERK Hospital Encounter HX NO MAPPING Cliff Almaraz M.D. 9 Hospital Encounter [facility]X [facility] Cliff Almaraz M.D. 9 Hospital Encounter [facility]X [facility] Brad Francis M.D. - 9 11:59 PM DEPARTURE CLERK Hospital Encounter HX NO MAPPING Cameron Adams M.D. 9 Hospital Encounter [facility]X [facility] Samuel Cota M.D. 9 Hospital Encounter [facility]X [facility] Cameron Adams M.D. 9 - 9 11:59 PM DEPARTURE CLERK Hospital Encounter HX NO MAPPING Cliff Almaraz M.D. 9 Hospital Encounter [facility]X [facility] Cliff Almaraz M.D. 9 - 9 Hospital Encounter [facility]X [facility] Darryl Worthington M.D. 9 Hospital Encounter [facility]X [facility] Darryl Worthington M.D. 8 - 8 Hospital Encounter [facility]X [facility] Marielena Leon M.D. 8 - 8 11:59 PM CDT Hospital Encounter [facility]X [facility] INTERNMED Timtohy Kbaa M.D. 8 Hospital Encounter [facility]X [facility] Samuel Cota M.D. 8 Hospital Encounter [facility]X [facility] Samuel Cota M.D. 8 Hospital Encounter [facility]X [facility] Samuel Cota M.D. 8 Hospital Encounter [facility]X [facility] Brad Francis M.D. 8 Hospital Encounter [facility] Campbell M.D. 8 Hospital Encounter [facility] Samuel Cota M.D. 8 Hospital Encounter [facility]X [facility] Rizzo M.D. 7 - 7 11:59 PM CDT Hospital Encounter HX NO MAPPING Timothy Kaba M.D. 7 8:11 AM CDT Hospital Encounter HX NO MAPPING Timothy Kaba M.D. 7 8:12 AM CDT - 7 11:59 PM CDT Hospital Encounter HX NO MAPPING Timothy Kaba M.D. 7 Hospital Encounter [facility]X [facility] Darryl Worthington M.D. 7 - 7 11:59 PM CDT Hospital Encounter HX [facility] INTERNMED Timothy Kaba M.D. 6 - 6 11:59 PM DEPARTURE CLERK Hospital Encounter HX NO MAPPING Provider, Historical 6 - 6 11:59 PM DEPARTURE CLERK Hospital Encounter HX [facility] XRAY Provider, Historical 6 - 6 11:59 PM DEPARTURE CLERK Hospital Encounter HX [facility] XRAY Provider, Historical 6 1:19 PM DEPARTURE CLERK - 6 11:59 PM DEPARTURE CLERK Hospital Encounter HX [facility] XRAY Provider, Historical 6 12:43 PM DEPARTURE CLERK Hospital Encounter HX NO MAPPING Samuel Cota M.D. Allergies Active Allergy Reactions Criticality Noted Date [...] Problems Problem Noted Date Diagnosed Date Therapy Lace Inspector Antiplatelet 05/03/2023 Tachycardia 05/03/2023 Atelectasis 05/03/2023 Cardiac Surgery Status Post 05/03/2023 Effusion Pleural 05/03/2023 Postprocedural Pneumothorax 05/03/2023 Hypertensive Heart Disease Without Heart Failure 05/03/2023 Anemia Posthemorrhagic Acute (Blood Loss Anemia) 05/01/2023 Bypass Coronary Artery Graft Status Post 024 Pain Postoperative 04/28/2023 Non-ST Elevation Myocardial Infarction Mccormack's Esophagus 04/09/2019 Overview (04/09/2019): Added automatically from request for surgery [id number] Hematochezia 04/09/2019 Overview (04/09/2019): Added automatically from request for surgery [id number] Hypertension 03/17/2010 Pain Back Resolved Problems Problem Noted Date Diagnosed Date Resolved Date Acute Metabolic Acidosis 04/28/2023 Leukocytosis 04/28/2023 05/03/2023 Immunizations Name Administration Dates Next Due SARS-COV-2 (COVID-19) - PFIZ ER (Discontinued)(12 years or older) 07/15/2020,06/20/2020 Td (Adult), adsorbed 12/09/2008 Tdap 12/11/2023 Family History Medical History Relation Name Comments Aortic valve replacement and aortoplasty Brother Heart attack Brother Coronary artery disease Father Heart attack Father Heart failure Mother Relation Name Status Comments Brother Father Mother Social History Smoking Status as of 12/29/2023 Tobacco Use Types Packs/Day Years Used Date Smoking Tobacco: Never Assessed [facility] Utilities Answer Date Recorded In the [...] your living situation today? I have a [facility] place to live 05/02/2023 Sex and Gender [...] 172 cm (5' 7.72) 04/28/2023 7:37 AM DEPARTURE CLERK Body Mass Index 33.8 04/28/2023 7:37 AM DEPARTURE CLERK Plan of Treatment Not on file Medical Devices Implanted Type Area Agent Producer Device Identifier Shelf Expiration Date Model / Serial / Lot Conversions - Default Historical Implant Device Implanted:01/10 (Quantity not on file) Aneurysm Clip Description:Device Status Te xt - AneurClip. [place] Screw 2 Canc 6.5 X 35 - [id number] Implanted:Qty: 2 on 03/18/2010 Hardware e.g. pins/screw s/rods [employer] Description:Device Manufactu rer - [employer]. Device Status Text - [id number]. Clp Hrzn Ti 24 Morales Epstein Ricardo - [id number] Implanted:Qty: 1 on 04/28/2023 by Jc Pan M.D. at [facility] Hardware e.g. pins/screw s/rods N/A: [employer] [id number] / / Clp Hrzn Ti 24 Clp Sm Red - [id number] Implanted:Qty: 1 on 04/28/2023 by Jc Pan M.D. at [facility] Hardware e.g. pins/screw s/rods N/A: [employer] [id number] / / Clp Hrzn Ti 24 Clp Sm Red - [id number] Implanted:Qty: 1 on 04/28/2023 by Jc Pan M.D. at [facility] Hardware e.g. pins/screw s/rods N/A: [employer] [id number] / / Clp Hrzn Ti 24 Clp Ricardo - [id number] Implanted:Qty: 1 on 04/28/2023 by Jc Pan M.D. at [facility] Hardware e.g. pins/screw s/rods N/A: [employer] [id number] 01/25/2028 [id number] / / [id number] [place] Shell Multi 2 60mm - Cheng [id number] Implanted:Qty: 1 on 03/18/2010 Hip Implant Other/Legacy - See Implant Description [employer] Description:Device Manufactu rer - J [employer] J [employer]. Body Location - Other. Left. Device Status Text - [id number] [id number]. [place]-Stem Mor[place]o 7 Std - Cheng [id number] Implanted:Qty: 1 on 03/18/2010 Hip Implant Other/Legacy - See Implant Description [employer] Description:Device Manufactu rer - J [employer]. Body Location - Other. Left. Device Status Text - HIP [id number]. Dep. Head M-Spec 40mm -2 Offset - Cheng [id number] Implanted:Qty: 1 on 03/18/2010 Hip Implant Other/Legacy - See Implant Description [employer] Description:Device Manufactu rer - [employer]. Body Location - Other. Left. Device Status Text - HIP [id number]. [place] Liner Altrx +4 Neut 40x60 - Cheng [id number] Implanted:Qty: 1 on 03/18/2010 Hip Implant Other/Legacy - See Implant Description [employer] Description:Device Manufactu rer - [employer]. Body Location - Other. Left. Device Status Text - HIP [id number]. Conversions - Default Historical Implant Device Implanted:01/10 (Quantity not on file) Hip Implant Description:Device Status Te xt - Hip Imp. Peg-Global Deland Glenoid Sz 52 - Cheng [id number] Implanted:Qty: 1 on 04/24/2015 Shoulder Implant Other/Legacy - See Implant Description [employer] Description:Device Manufactu rer - [employer]. Body Location - Other. Left. Device Status Text - [id number]. Global-Deedee Prox Porocoat 12 X 135 - Cheng [id number] Implanted:Qty: 1 on 04/24/2015 Shoulder Implant Other/Legacy - See Implant Description [employer] Description:Device Manufactu rer - [employer]. Body Location - Other. Left. Device Status Text - [id number]. Stem Global Standard Sz 12 X 120mm - Cheng [id number] Implanted:Qty: 1 on 04/24/2015 Shoulder Implant Other/Legacy - See Implant Description [employer] Description:Device Manufactu rer - [employer]. Body Location - Other. Left. Device Status Text - [id number]. J J Global Head Humeral 56 X 18mm Ecc. - Cheng [id number] Implanted:Qty: 1 on 04/24/2015 Shoulder Implant Other/Legacy - See Implant Description [email or web address] Description:Device Manufactu rer - [employer]. Body Location - Other. Left. Device Status Text - [id number]. Procedures Procedure Name Priority Date/Time Associated Diagnosis Comments 6 MINUTE WALK Routine 08/15/2023 8:00 AM CDT Bypass Coronary Artery Graft Status Post CBC WITHOUT DIFFERENTIAL, B Routine 07/10 9:20 AM CDT Bypass Coronary Artery Graft Status Post Hyperlipidemia LIPID PANEL, S Routine 07/27/2023 9:20 AM CDT Bypass Coronary Artery Graft Status Post Hyperlipidemia 6 MINUTE WALK Routine 05/17/2023 8:00 AM DEPARTURE CLERK Bypass Coronary Artery Graft Status Post CBC WITHOUT DIFFERENTIAL, B Routine 04/12 8:13 AM DEPARTURE CLERK BASIC METABOLIC PANEL, S/P Routine 05/05 8:13 AM DEPARTURE CLERK NOCTURNAL OXYGEN STUDY - RT Routine 04/12 7:43 PM DEPARTURE CLERK (TTE) 2D ECHO DOPPLER COLOR AND CONTRAST STAT 05/04/2023 1:23 PM DEPARTURE CLERK LACTATE, B/P STAT 05/04/2023 12:03 PM DEPARTURE CLERK DX CHEST AP OR PA AND LATERA L 2 VIEWS RAD - Routine (most inpatients and all outpatients) 05/04/2023 9:49 AM DEPARTURE CLERK ADULT OXYGEN THERAPY Routine 05/04/2023 8:02 AM DEPARTURE CLERK RT TO ARRANGE FOR HOME DME Routine 05/04 7:24 AM DEPARTURE CLERK CBC WITHOUT DIFFERENTIAL, B Routine 04/12 5:46 AM DEPARTURE CLERK BASIC METABOLIC PANEL, S/P Routine 05/04 5:46 AM DEPARTURE CLERK CARDIOVASCULAR SURGERY IMAGE EXAM Routine 05/03/2023 11:40 PM DEPARTURE CLERK ADULT OXYGEN THERAPY Routine 05/03/2023 8:01 PM DEPARTURE CLERK ECG Routine 05/03/2023 6:42 PM DEPARTURE CLERK POTASSIUM, S/P Routine 05/03/2023 5:52 PM DEPARTURE CLERK ADULT OXYGEN THERAPY Routine 05/03/2023 8:00 AM DEPARTURE CLERK ECG Routine 05/03/2023 5:13 AM DEPARTURE CLERK CBC WITHOUT DIFFERENTIAL, B Routine 04/12 5:06 AM DEPARTURE CLERK BASIC METABOLIC PANEL, S/P Routine 05/03 5:06 AM DEPARTURE CLERK ADULT OXYGEN THERAPY Routine 05/02/2023 8:01 PM DEPARTURE CLERK NOCTURNAL OXYGEN STUDY - RT Routine 04/12 5:54 PM DEPARTURE CLERK DX CHEST AP OR PA AND LATERA L 2 VIEWS RAD - Routine (most inpatients and all outpatients) 05/02/2023 4:24 PM DEPARTURE CLERK ADULT OXYGEN THERAPY Routine 05/02/2023 8:01 AM DEPARTURE CLERK DX CHEST PORTABLE 1 VIEW RAD - Semiurgent (Fast; most ED patients; some inpatients) 05/02/2023 7:28 AM DEPARTURE CLERK CBC WITHOUT DIFFERENTIAL, B Routine 04/12 6:03 AM DEPARTURE CLERK BASIC METABOLIC PANEL, S/P Routine 05/02 6:03 AM DEPARTURE CLERK MAGNESIUM, S Routine 05/02/2023 5:57 AM DEPARTURE CLERK GLUCOSE POCT, B Routine 05/01/2023 8:23 PM DEPARTURE CLERK ADULT OXYGEN THERAPY Routine 05/01/2023 8:00 PM DEPARTURE CLERK GLUCOSE POCT, B Routine 05/01/2023 4:28 PM DEPARTURE CLERK (TTE) 2D LIMITED ONLY Routine 05/01/2023 3:00 PM DEPARTURE CLERK CBC WITHOUT DIFFERENTIAL, B Timed 04/12 1:12 PM DEPARTURE CLERK GLUCOSE POCT, B Routine 05/01/2023 1:11 PM DEPARTURE CLERK GLUCOSE POCT, B Routine 05/01/2023 1:03 PM DEPARTURE CLERK GLUCOSE POCT, B Routine 05/01/2023 1:01 PM DEPARTURE CLERK GLUCOSE POCT, B Routine 05/01/2023 12:58 PM DEPARTURE CLERK GLUCOSE POCT, B Routine 05/01/2023 9:07 AM DEPARTURE CLERK GLUCOSE, RANDOM, S/P STAT 05/01/2023 8:38 AM DEPARTURE CLERK GLUCOSE POCT, B Routine 05/01/2023 8:37 AM DEPARTURE CLERK TRANSFUSE RED BLOOD CELLS Routine 2023 8:32 AM DEPARTURE CLERK GLUCOSE POCT, B Routine 05/01/2023 8:17 AM DEPARTURE CLERK GLUCOSE POCT, B Routine 05/01/2023 8:14 AM DEPARTURE CLERK GLUCOSE POCT, B Routine 05/01/2023 8:08 AM DEPARTURE CLERK ADULT OXYGEN THERAPY Routine 05/01/2023 8:00 AM DEPARTURE CLERK PREPARE RED BLOOD CELLS Routine 05/01/19 6:26 AM DEPARTURE CLERK TYPE AND SCREEN Routine 05/01/2023 6:26 AM DEPARTURE CLERK DX CHEST PORTABLE WITH AM ROUNDS 1 VIEW RAD - Semiurgent (Fast; most ED patients; some inpatients) 05/01/2023 3:42 AM DEPARTURE CLERK CBC WITHOUT DIFFERENTIAL, B Routine 04/12 3:17 AM DEPARTURE CLERK BASIC METABOLIC PANEL, S/P Routine 05/01 3:17 AM DEPARTURE CLERK GLUCOSE POCT, B Routine 05/01/2023 3:16 AM DEPARTURE CLERK GLUCOSE POCT, B Routine 05/01/2023 12:17 AM DEPARTURE CLERK GLUCOSE POCT, B Routine 04/30/2023 8:23 PM DEPARTURE CLERK ADULT OXYGEN THERAPY Routine 04/30/2023 8:00 PM DEPARTURE CLERK POTASSIUM, S/P STAT 04/30/2023 7:35 PM DEPARTURE CLERK GLUCOSE POCT, B Routine 04/30/2023 4:03 PM DEPARTURE CLERK LACTATE, B/P Timed 04/30/2023 3:00 PM DEPARTURE CLERK GLUCOSE POCT, B Routine 04/30/2023 12:26 PM DEPARTURE CLERK BACTERIA / PAULA CULTURE, BLOOD STAT 04/30/2023 11:10 AM DEPARTURE CLERK LACTATE FOR SEPSIS WITH REFLEX STAT 04/30/2023 11:01 AM DEPARTURE CLERK BACTERIA / PAULA CULTURE, BLOOD STAT 04/30/2023 11:01 AM DEPARTURE CLERK GLUCOSE POCT, B Routine 04/30/2023 8:09 AM DEPARTURE CLERK ADULT OXYGEN THERAPY Routine 04/30/2023 8:01 AM DEPARTURE CLERK CBC WITHOUT DIFFERENTIAL, B Routine 04/12 4:57 AM DEPARTURE CLERK BASIC METABOLIC PANEL, S/P Routine 04/30 4:57 AM DEPARTURE CLERK GLUCOSE POCT, B Routine 04/30/2023 4:56 AM DEPARTURE CLERK DX CHEST PORTABLE WITH AM ROUNDS 1 VIEW RAD - Semiurgent (Fast; most ED patients; some inpatients) 04/30/2023 3:35 AM DEPARTURE CLERK GLUCOSE POCT, B Routine 04/29/2023 11:29 PM DEPARTURE CLERK ADULT OXYGEN THERAPY Routine 04/29/2023 8:00 PM DEPARTURE CLERK GLUCOSE POCT, B Routine 04/29/2023 6:31 PM DEPARTURE CLERK ACT, POCT, B STAT 04/29/2023 5:42 PM DEPARTURE CLERK GLUCOSE POCT, B Routine 04/29/2023 5:35 PM DEPARTURE CLERK GLUCOSE POCT, B Routine 04/29/2023 4:31 PM DEPARTURE CLERK GLUCOSE POCT, B Routine 04/29/2023 3:36 PM DEPARTURE CLERK GLUCOSE POCT, B Routine 04/29/2023 2:29 PM DEPARTURE CLERK GLUCOSE POCT, B Routine 04/29/2023 1:24 PM DEPARTURE CLERK GLUCOSE POCT, B Routine 04/29/2023 12:31 PM DEPARTURE CLERK GLUCOSE POCT, B Routine 04/29/2023 11:22 AM DEPARTURE CLERK GLUCOSE POCT, B Routine 04/29/2023 10:35 AM DEPARTURE CLERK GLUCOSE POCT, B Routine 04/29/2023 9:26 AM DEPARTURE CLERK GLUCOSE POCT, B Routine 04/29/2023 8:27 AM DEPARTURE CLERK ADULT OXYGEN THERAPY Routine 04/29/2023 8:01 AM DEPARTURE CLERK GLUCOSE POCT, B Routine 04/29/2023 7:31 AM DEPARTURE CLERK GLUCOSE POCT, B Routine 04/29/2023 6:45 AM DEPARTURE CLERK PREPARE CRYOPRECIPITATE Routine 04/29/19 6:30 AM DEPARTURE CLERK GLUCOSE POCT, B Routine 04/29/2023 5:32 AM DEPARTURE CLERK CALCIUM, IONIZED, S/B Timed 04/29/2023 4:46 AM DEPARTURE CLERK LACTATE, B/P Timed 04/29/2023 4:46 AM DEPARTURE CLERK PATIENT STATUS Timed 04/29/2023 4:46 AM DEPARTURE CLERK ACTIVATED PARTIAL THROMBOPLASTIN TIME (APTT), P Timed 04/29/2023 4:46 AM DEPARTURE CLERK PROTHROMBIN TIME (PT), P Timed 024 4:46 AM DEPARTURE CLERK CBC WITHOUT DIFFERENTIAL, B Timed 04/11 4:46 AM DEPARTURE CLERK MAGNESIUM, S Timed 04/29/2023 4:46 AM DEPARTURE CLERK LACTATE, B Timed 04/29/2023 4:46 AM DEPARTURE CLERK ABG W/COOX Timed 04/29/2023 4:46 AM DEPARTURE CLERK HEPATIC FUNCTION PANEL, S Timed 2023 4:46 AM DEPARTURE CLERK BASIC METABOLIC PANEL, S/P Timed 04/29 4:46 AM DEPARTURE CLERK GLUCOSE POCT, B Routine 04/29/2023 4:45 AM DEPARTURE CLERK DX CHEST PORTABLE WITH AM ROUNDS 1 VIEW RAD - Semiurgent (Fast; most ED patients; some inpatients) 04/29/2023 3:21 AM DEPARTURE CLERK GLUCOSE POCT, B Routine 04/29/2023 2:50 AM DEPARTURE CLERK TIMP2/IGFBP7 CHAD RISK SCORE, U Routine 04/29/2023 2:38 AM DEPARTURE CLERK PREPARE PLATELETS STAT 04/29/2023 2:31 AM DEPARTURE CLERK LACTATE, B/P Timed 04/29/2023 1:56 AM DEPARTURE CLERK GLUCOSE POCT, B Routine 04/29/2023 1:53 AM DEPARTURE CLERK LACTATE, B/P Timed 04/29/2023 12:19 AM DEPARTURE CLERK GLUCOSE POCT, B Routine 04/28/2023 11:54 PM DEPARTURE CLERK PH BLOOD GAS STAT 04/28/2023 11:02 PM DEPARTURE CLERK CALCIUM, IONIZED, S/B STAT 04/28/2023 11:02 PM DEPARTURE CLERK LACTATE, B/P STAT 04/28/2023 11:02 PM DEPARTURE CLERK GLUCOSE POCT, B Routine 04/28/2023 10:50 PM DEPARTURE CLERK PATIENT STATUS STAT 04/28/2023 8:14 PM DEPARTURE CLERK POTASSIUM, S/P STAT 04/28/2023 8:14 PM DEPARTURE CLERK LACTATE, B/P STAT 04/28/2023 8:14 PM DEPARTURE CLERK ABG W/COOX STAT 04/28/2023 8:14 PM DEPARTURE CLERK GLUCOSE POCT, B Routine 04/28/2023 8:12 PM DEPARTURE CLERK ADULT OXYGEN THERAPY Routine 04/28/2023 8:01 PM DEPARTURE CLERK DX CHEST PORTABLE 1 VIEW RAD - Emergent (Fastest; for the most critically ill patients) 04/28/2023 6:22 PM DEPARTURE CLERK TRANSFUSE CRYOPRECIPITATE Routine 2023 5:50 PM DEPARTURE CLERK GLUCOSE POCT, B Routine 04/28/2023 5:18 PM DEPARTURE CLERK DX CHEST PORTABLE 1 VIEW RAD - Semiurgent (Fast; most ED patients; some inpatients) 04/28/2023 4:25 PM DEPARTURE CLERK PATIENT STATUS STAT 04/28/2023 4:12 PM DEPARTURE CLERK LACTATE, B STAT 04/28/2023 4:12 PM DEPARTURE CLERK ABG W/O COOX STAT 04/28/2023 4:12 PM DEPARTURE CLERK FIBRINOGEN, P STAT 04/28/2023 4:12 PM DEPARTURE CLERK PROTHROMBIN TIME (PT), P STAT 024 4:12 PM DEPARTURE CLERK ACTIVATED PARTIAL THROMBOPLASTIN TIME (APTT), P STAT 04/28/2023 4:12 PM DEPARTURE CLERK CBC WITHOUT DIFFERENTIAL, B STAT 04/11 4:12 PM DEPARTURE CLERK BASIC METABOLIC PANEL, S/P STAT 04/28 4:12 PM DEPARTURE CLERK GLUCOSE POCT, B Routine 04/28/2023 4:11 PM DEPARTURE CLERK ECG Routine 04/28/2023 4:05 PM DEPARTURE CLERK AIRWAY CARE Routine 04/28/2023 3:58 PM DEPARTURE CLERK AIRWAY CARE Routine 04/28/2023 3:58 PM DEPARTURE CLERK AIRWAY CARE Routine 04/28/2023 3:58 PM DEPARTURE CLERK MECHANICAL VENTILATOR Routine 04/28/2023 3:58 PM DEPARTURE CLERK MECHANICAL VENTILATOR Routine 04/28/2023 3:58 PM DEPARTURE CLERK MECHANICAL VENTILATOR Routine 04/28/2023 3:58 PM DEPARTURE CLERK MECHANICAL VENTILATOR Routine 04/28/2023 3:58 PM DEPARTURE CLERK MECHANICAL VENTILATOR Routine 04/28/2023 3:58 PM DEPARTURE CLERK RESPIRATORY ASSESS AND TREAT Routine 3:47 PM DEPARTURE CLERK ADULT OXYGEN THERAPY Routine 04/28/2023 3:47 PM DEPARTURE CLERK ADULT OXYGEN THERAPY Routine 04/28/2023 3:47 PM DEPARTURE CLERK ADULT OXYGEN THERAPY Routine 04/28/2023 3:47 PM DEPARTURE CLERK PATIENT STATUS STAT 04/28/2023 3:00 PM DEPARTURE CLERK LACTATE, B STAT 04/28/2023 3:00 PM DEPARTURE CLERK GLUCOSE, WHOLE BLOOD STAT 04/28/2023 3:00 PM DEPARTURE CLERK POTASSIUM, B STAT 04/28/2023 3:00 PM DEPARTURE CLERK SODIUM, B STAT 04/28/2023 3:00 PM DEPARTURE CLERK CALCIUM, IONIZED, S/B STAT 04/28/2023 3:00 PM DEPARTURE CLERK ABG W/COOX STAT 04/28/2023 3:00 PM DEPARTURE CLERK AUTOLOGOUS RED BLOOD CELLS-CELL SALVAGE Routine 04/28/2023 2:59 PM DEPARTURE CLERK TRANSFUSE PLATELETS Routine 04/28/2023 2:28 PM DEPARTURE CLERK AUTOLOGOUS RED BLOOD CELLS-CELL SALVAGE Routine 04/28/2023 1:50 PM DEPARTURE CLERK THROMBOELASTOGRAPH, KAOLIN + HEPARINASE, B STAT 04/28/2023 1:47 PM DEPARTURE CLERK PATIENT STATUS STAT 04/28/2023 1:47 PM DEPARTURE CLERK LACTATE, B STAT 04/28/2023 1:47 PM DEPARTURE CLERK GLUCOSE, WHOLE BLOOD STAT 04/28/2023 1:47 PM DEPARTURE CLERK POTASSIUM, B STAT 04/28/2023 1:47 PM DEPARTURE CLERK SODIUM, B STAT 04/28/2023 1:47 PM DEPARTURE CLERK CALCIUM, IONIZED, S/B STAT 04/28/2023 1:47 PM DEPARTURE CLERK ABG W/COOX STAT 04/28/2023 1:47 PM DEPARTURE CLERK PROTHROMBIN TIME (PT), P STAT 024 1:46 PM DEPARTURE CLERK THROMBOELASTOGRAPH, KAOLIN, B STAT 1:46 PM DEPARTURE CLERK ACTIVATED PARTIAL THROMBOPLASTIN TIME (APTT), P STAT 04/28/2023 1:46 PM DEPARTURE CLERK FIBRINOGEN, P STAT 04/28/2023 1:46 PM DEPARTURE CLERK PLATELETS, B STAT 04/28/2023 1:46 PM DEPARTURE CLERK ACT, POCT, B Routine 04/28/2023 1:40 PM DEPARTURE CLERK HEMOGLOBIN (HGB), POCT, B Routine 2023 1:39 PM DEPARTURE CLERK (RAJINDER) - INTRAOPERATIVE WITH COLOR (PROBE NOT PLACED) Routine 04/28/2023 1:30 PM DEPARTURE CLERK GLUCOSE POCT, B Routine 04/28/2023 12:56 PM DEPARTURE CLERK ACT, POCT, B Routine 04/28/2023 12:52 PM DEPARTURE CLERK ACT, POCT, B Routine 04/28/2023 12:20 PM DEPARTURE CLERK ACT, POCT, B Routine 04/28/2023 11:46 AM DEPARTURE CLERK GLUCOSE POCT, B Routine 04/28/2023 11:45 AM DEPARTURE CLERK GLUCOSE, WHOLE BLOOD STAT 04/28/2023 11:15 AM DEPARTURE CLERK POTASSIUM, B STAT 04/28/2023 11:15 AM DEPARTURE CLERK SODIUM, B STAT 04/28/2023 11:15 AM DEPARTURE CLERK CALCIUM, IONIZED, S/B STAT 04/28/2023 11:15 AM DEPARTURE CLERK ABG W/COOX STAT 04/28/2023 11:15 AM DEPARTURE CLERK ACT, POCT, B Routine 04/28/2023 11:10 AM DEPARTURE CLERK ACT, POCT, B Routine 04/28/2023 10:34 AM DEPARTURE CLERK HEMOGLOBIN (HGB), POCT, B Routine 2023 10:34 AM DEPARTURE CLERK MC ANE CENTRAL LINE GENERIC PERFORMABLE Routine 04/28/2023 8:05 AM DEPARTURE CLERK LDA ANE INTRODUCER ONLY Routine 04/28/19 24 8:05 AM DEPARTURE CLERK LDA ANE PA CATH Routine 04/28/2023 8:05 AM DEPARTURE CLERK MC ANE INVASIVE CATH WITH ULTRASOUND Routine 04/28/2023 8:05 AM DEPARTURE CLERK ME INS/PLC FLOW DIR CATH Routine 024 8:05 AM DEPARTURE CLERK ME US GUIDE VASC ACCESS Routine 04/28/19 24 8:05 AM DEPARTURE CLERK PATIENT STATUS STAT 04/28/2023 7:59 AM DEPARTURE CLERK LACTATE, B STAT 04/28/2023 7:59 AM DEPARTURE CLERK GLUCOSE, WHOLE BLOOD STAT 04/28/2023 7:59 AM DEPARTURE CLERK POTASSIUM, B STAT 04/28/2023 7:59 AM DEPARTURE CLERK SODIUM, B STAT 04/28/2023 7:59 AM DEPARTURE CLERK CALCIUM, IONIZED, S/B STAT 04/28/2023 7:59 AM DEPARTURE CLERK ABG W/COOX STAT 04/28/2023 7:59 AM DEPARTURE CLERK ACT, POCT, B Routine 04/28/2023 7:58 AM DEPARTURE CLERK ME ECHO RAJINDER 2D PLC ONLY Routine 04/28/19 7:55 AM DEPARTURE CLERK LDA ANE ENDOTRACHEAL AIRWAY Routine 04/11 7:49 AM DEPARTURE CLERK LDA ANE ARTERIAL LINE INSERTION Routine 04/28/2023 7:41 AM DEPARTURE CLERK ME ARTL CATH/CNULA MONITOR PERC Routine 04/28/2023 7:41 AM DEPARTURE CLERK ANESTHESIOLOGY IMAGE EXAM Routine 2023 7:05 AM DEPARTURE CLERK PLACEMENT/REMOVAL INTRA-AORTIC BALLOON PUMP 04/28/2023 6:58 AM DEPARTURE CLERK Coronary Artery Disease With Unstable Angina (HCC) HARVEST VEIN ENDOSCOPY LOWER EXTREMITY 04/28/2023 6:58 AM DEPARTURE CLERK Coronary Artery Disease With Unstable Angina (HCC) CORONARY ARTERY BYPASS GRAFT X 4 - INTERNAL MAMMARY ARTERY 04/28/2023 6:58 AM DEPARTURE CLERK Coronary Artery Disease With Unstable Angina (HCC) HEPATIC FUNCTION PANEL, S Routine 2023 6:40 AM DEPARTURE CLERK BASIC METABOLIC PANEL, S/P Routine 04/28 6:40 AM DEPARTURE CLERK HEPARIN LEVEL ANTI-XA ASSAY, P Routine 04/28/2023 6:40 AM DEPARTURE CLERK CBC WITHOUT DIFFERENTIAL, B Routine 04/11 6:40 AM DEPARTURE CLERK BASIC METABOLIC PANEL, S/P Timed 04/27 1:52 PM DEPARTURE CLERK TYPE AND SCREEN Routine 04/27/2023 1:52 PM DEPARTURE CLERK BASIC METABOLIC PANEL, S/P Routine 04/27 7:33 AM DEPARTURE CLERK HEPARIN LEVEL ANTI-XA ASSAY, P Routine 04/27/2023 7:33 AM DEPARTURE CLERK CBC WITHOUT DIFFERENTIAL, B Routine 04/11 7:33 AM DEPARTURE CLERK ADULT OXYGEN THERAPY Routine 04/26/2023 8:01 PM DEPARTURE CLERK US LOWER EXTREMITY VEINS BILATERAL MAPPING RAD - Routine (most inpatients and all outpatients) 04/26/2023 9:58 AM DEPARTURE CLERK ADULT OXYGEN THERAPY Routine 04/26/2023 8:01 AM DEPARTURE CLERK HEPARIN LEVEL ANTI-XA ASSAY, P Timed 04/26/2023 7:48 AM DEPARTURE CLERK HEPATIC FUNCTION PANEL, S Routine 2023 7:48 AM DEPARTURE CLERK BASIC METABOLIC PANEL, S/P Routine 04/26 7:48 AM DEPARTURE CLERK HEPARIN LEVEL ANTI-XA ASSAY, P Timed 04/26/2023 12:38 AM DEPARTURE CLERK ADULT OXYGEN THERAPY Routine 04/25/2023 8:01 PM DEPARTURE CLERK ECG Routine 04/25/2023 1:59 PM DEPARTURE CLERK CARDIAC CATHETERIZATION Routine 04/25/19 12:53 PM DEPARTURE CLERK Non-ST Elevation Myocardial Infarction (HCC) ADULT OXYGEN THERAPY Routine 04/25/2023 8:01 AM DEPARTURE CLERK HEPARIN LEVEL ANTI-XA ASSAY, P Routine 04/25/2023 7:30 AM DEPARTURE CLERK HEPATIC FUNCTION PANEL, S Routine 2023 7:30 AM DEPARTURE CLERK BASIC METABOLIC PANEL, S/P Routine 04/25 7:30 AM DEPARTURE CLERK CBC WITHOUT DIFFERENTIAL, B Routine 04/11 7:30 AM DEPARTURE CLERK HEPARIN LEVEL ANTI-XA ASSAY, P Timed 04/24/2023 8:25 PM DEPARTURE CLERK ADULT OXYGEN THERAPY Routine 04/24/2023 8:00 PM DEPARTURE CLERK HEPARIN LEVEL ANTI-XA ASSAY, P Timed 04/24/2023 12:49 PM DEPARTURE CLERK ADULT OXYGEN THERAPY Routine 04/24/2023 8:00 AM DEPARTURE CLERK ECG Routine 04/24/2023 5:57 AM DEPARTURE CLERK HEPARIN LEVEL ANTI-XA ASSAY, P Routine 04/24/2023 5:44 AM DEPARTURE CLERK TROPONIN T, 5TH GEN, P Routine 5:44 AM DEPARTURE CLERK COMPREHENSIVE METABOLIC PANEL, S/P Routine 04/24/2023 5:44 AM DEPARTURE CLERK NT-PRO B-TYPE NATRIURETIC PEPTIDE (BNP), S Routine 04/24/2023 5:44 AM DEPARTURE CLERK LIPID PANEL, S Routine 04/24/2023 5:44 AM DEPARTURE CLERK HEMOGLOBIN A1C, B Routine 04/24/2023 5:44 AM DEPARTURE CLERK CBC WITHOUT DIFFERENTIAL, B Routine 04/11 5:44 AM DEPARTURE CLERK HEPARIN LEVEL ANTI-XA ASSAY, P Timed 04/24/2023 12:58 AM DEPARTURE CLERK ECG STAT 04/23/2023 11:08 PM DEPARTURE CLERK ADULT OXYGEN THERAPY Routine 04/23/2023 8:01 PM DEPARTURE CLERK HEPARIN LEVEL ANTI-XA ASSAY, P Timed 04/23/2023 7:02 PM DEPARTURE CLERK ECG STAT 04/23/2023 5:23 PM DEPARTURE CLERK (TTE) 2D ECHO DOPPLER COLOR AND CONTRAST Routine 04/23/2023 1:22 PM DEPARTURE CLERK ECG Routine 04/23/2023 11:52 AM DEPARTURE CLERK ADULT OXYGEN THERAPY Routine 04/23/2023 11:13 AM DEPARTURE CLERK ADULT OXYGEN THERAPY Routine 04/23/2023 11:13 AM DEPARTURE CLERK BASIC METABOLIC PANEL, S/P STAT 04/23 8:19 AM DEPARTURE CLERK CBC WITHOUT DIFFERENTIAL, B STAT 04/11 8:19 AM DEPARTURE CLERK ACTIVATED PARTIAL THROMBOPLASTIN TIME (APTT), P STAT 04/23/2023 8:[address] CHEST ANGIOGRAM AND PULMONARY ARTERIES WITH IV CONTRAST RAD - Semiurgent (Fast; most ED patients; some inpatients) 04/23/2023 8:18 AM DEPARTURE CLERK CRITICAL CARE Routine 04/23/2023 8:03 AM DEPARTURE CLERK ACTIVATED PARTIAL THROMBOPLASTIN TIME (APTT), P Timed 04/22/2023 11:31 PM DEPARTURE CLERK TROPONIN T, 2H/6H, 5TH GEN, P Timed 7:19 PM DEPARTURE CLERK ECG Routine 04/22/2023 5:07 PM DEPARTURE CLERK BASIC METABOLIC PANEL, S/P STAT 04/22 5:05 PM DEPARTURE CLERK CBC WITH DIFFERENTIAL, B STAT 024 5:05 PM DEPARTURE CLERK PROTHROMBIN TIME (PT), P STAT 024 5:05 PM DEPARTURE CLERK TROPONIN T, BASELINE, 5TH GEN, P STAT 04/22/2023 5:05 PM DEPARTURE CLERK DX CHEST PORTABLE 1 VIEW RAD - Semiurgent (Fast; most ED patients; some inpatients) 04/22/2023 5:03 PM DEPARTURE CLERK ACTIVATED PARTIAL THROMBOPLASTIN TIME (APTT), P STAT 04/22/2023 5:02 PM DEPARTURE CLERK SARS CORONAVIRUS-2 RNA, V Routine 2020 8:11 AM CDT Contact With And (Suspected) Exposure To COVID-19 GASTROENTEROLOGY IMAGE EXAM Routine 05/13 8:40 AM DEPARTURE CLERK COLONOSCOPY 06/04/2019 8:36 AM DEPARTURE CLERK SURGICAL PATHOLOGY Routine 06/04/2019 8:31 AM DEPARTURE CLERK UPPER GI ENDOSCOPY 06/04/2019 8:25 AM DEPARTURE CLERK ESOPHAGOGASTRODUODENOSCOPY 06/04 8:15 AM DEPARTURE CLERK Mccormack's Esophagus Hematochezia COLONOSCOPY 06/04/2019 8:15 AM DEPARTURE CLERK Mccormack's Esophagus Hematochezia GASTROENTEROLOGY IMAGE EXAM Routine 05/13 7:55 AM DEPARTURE CLERK (TTE) 2D ECHO DOPPLER COLOR Routine 04/11 8:34 AM DEPARTURE CLERK Hypertension Essential Primary Bradycardia Abnormal Electrocardiogram GASTROENTEROLOGY IMAGE EXAM Routine 05/12 1:24 PM DEPARTURE CLERK GASTROENTEROLOGY IMAGE EXAM Routine 05/12 12:57 PM DEPARTURE CLERK SURGICAL PATHOLOGY Routine 05/26/2016 12:00 AM DEPARTURE CLERK DX SHOULDER UNILATERAL 2+ VIEWS Routine 05/17/2016 8:30 AM DEPARTURE CLERK PHYSICAL MEDICINE AND REHAB IMAGE EXAM Routine 02/12/2016 9:[address] UPPER EXTREMITY WITHOUT I V CONTRAST Routine 11/07/2015 7:[address] 3D REQUIRING INDEPENDENT WORKSTATION Routine 11/07/2015 7:36 AM CDT DX SHOULDER UNILATERAL 2+ VIEWS Routine 11/03/2015 9:[address] ABDOMEN PELVIS WITH IV CONTRAST Routine 06/25/2015 6:[address] CHEST WITH IV CONTRAST Routine 2015 6:25 AM CDT DX CHEST PORTABLE 1 VIEW Routine 016 4:53 AM CDT AUTOMATED DIFFERENTIAL, B Routine 2015 4:45 AM CDT ACTIVATED PARTIAL THROMBOPLASTIN TIME (APTT), P Routine 06/25/2015 4:45 AM CDT PROTHROMBIN TIME (PT), P Routine 4:45 AM CDT CBC WITH DIFFERENTIAL, B Routine 016 4:45 AM CDT TROPONIN T, 5TH GEN, P Routine 6 4:45 AM CDT MAGNESIUM, S Routine 06/25/2015 4:45 AM CDT CREATINE KINASE (CK), S Routine 06/25/19 16 4:45 AM CDT D-DIMER, P Routine 06/25/2015 4:45 AM CDT LIPASE, S/P Routine 06/25/2015 4:45 AM CDT AMYLASE, TOT, S Routine 06/25/2015 4:45 AM CDT COMPREHENSIVE METABOLIC PANEL, S/P Routine 06/25/2015 4:45 AM CDT ECG Routine 06/25/2015 4:24 AM CDT ENTERIC PATH RSLT Routine 06/24/2015 8:00 AM CDT C DIFF SRCE Routine 06/24/2015 8:00 AM CDT C. DIFFICILE TOXIN, F Routine 06/24/2015 8:00 AM CDT AUTOMATED DIFFERENTIAL, B Routine 2015 5:54 AM DEPARTURE CLERK CBC WITH DIFFERENTIAL, B Routine 016 5:54 AM DEPARTURE CLERK COMPREHENSIVE METABOLIC PANEL, S/P Routine 06/06/2015 5:54 AM DEPARTURE CLERK BACTERIAL CULTURE, BLOOD Routine 016 7:07 AM DEPARTURE CLERK AUTOMATED DIFFERENTIAL, B Routine 2015 7:02 AM DEPARTURE CLERK CBC WITH DIFFERENTIAL, B Routine 016 7:02 AM DEPARTURE CLERK LACTATE, B/P Routine 06/05/2015 7:02 AM DEPARTURE CLERK COMPREHENSIVE METABOLIC PANEL, S/P Routine 06/05/2015 7:02 AM DEPARTURE CLERK BACTERIAL CULTURE, BLOOD Routine 016 7:02 AM DEPARTURE CLERK FL FLUORO LESS THAN 1 HOUR Routine 06/04 6:37 PM DEPARTURE CLERK SURGICAL PATHOLOGY Routine 06/04/2015 5:48 PM DEPARTURE CLERK AUTOMATED DIFFERENTIAL, B Routine 2015 7:40 AM DEPARTURE CLERK CBC WITH DIFFERENTIAL, B Routine 016 7:40 AM DEPARTURE CLERK HEPATIC FUNCTION PANEL, S Routine 2015 7:[address] HEAD WITHOUT IV CONTRAST Routine 05/13 3:19 PM DEPARTURE CLERK AUTOMATED DIFFERENTIAL, B Routine 2015 6:52 AM DEPARTURE CLERK CBC WITH DIFFERENTIAL, B Routine 016 6:52 AM DEPARTURE CLERK BASIC METABOLIC PANEL, S/P Routine 06/03 6:52 AM DEPARTURE CLERK TROPONIN T, 5TH GEN, P Routine 6 10:38 PM DEPARTURE CLERK TROPONIN T, 5TH GEN, P Routine 6 5:21 PM DEPARTURE CLERK US ABDOMEN LIMITED Routine 06/02/2015 2:[address] ABDOMEN PELVIS WITH IV CONTRAST Routine 06/02/2015 1:[address] CHEST WITH IV CONTRAST Routine 2015 1:09 PM DEPARTURE CLERK DX CHEST PORTABLE 1 VIEW Routine 016 11:59 AM DEPARTURE CLERK URINALYSIS WITH MICROSCOPIC Routine 05/13 11:49 AM DEPARTURE CLERK AUTOMATED DIFFERENTIAL, B Routine 2015 11:45 AM DEPARTURE CLERK D-DIMER, P Routine 06/02/2015 11:45 AM DEPARTURE CLERK CBC WITH DIFFERENTIAL, B Routine 016 11:45 AM DEPARTURE CLERK LIPASE, S/P Routine 06/02/2015 11:45 AM DEPARTURE CLERK AMYLASE, TOT, S Routine 06/02/2015 11:45 AM DEPARTURE CLERK C-REACTIVE PROTEIN (CRP), S/P Routine 11:45 AM DEPARTURE CLERK NT-PRO B-TYPE NATRIURETIC PEPTIDE (BNP), S Routine 06/02/2015 11:45 AM DEPARTURE CLERK THYROID-STIMULATING HORMONE-SENSITIVE (S-TSH) Routine 06/02/2015 11:45 AM DEPARTURE CLERK TROPONIN T, 5TH GEN, P Routine 6 11:45 AM DEPARTURE CLERK COMPREHENSIVE METABOLIC PANEL, S/P Routine 06/02/2015 11:45 AM DEPARTURE CLERK ECG Routine 06/02/2015 11:20 AM DEPARTURE CLERK DX SHOULDER UNILATERAL 2+ VIEWS Routine 05/29/2015 7:49 AM DEPARTURE CLERK ANESTHESIOLOGY IMAGE EXAM Routine 2015 5:32 PM DEPARTURE CLERK DX SHOULDER UNILATERAL 2+ VIEWS Routine 04/24/2015 4:09 PM DEPARTURE CLERK ANTIBODY SCREEN, B Routine 04/23/2015 12:16 PM DEPARTURE CLERK ABORH, RBC Routine 04/23/2015 12:16 PM DEPARTURE CLERK CBC WITH DIFFERENTIAL, B Routine 016 10:06 AM DEPARTURE CLERK CREATININE WITH EGFR, S/P Routine 2015 10:06 AM DEPARTURE CLERK ECG Routine 04/23/2015 9:33 AM DEPARTURE CLERK DX SHOULDER UNILATERAL 2+ VIEWS Routine 02/05/2015 8:56 AM CDT OUTSIDE MR MSK Routine 01/21/2015 8:28 AM CDT OUTSIDE DX CHEST Routine 12/13/2014 12:08 PM CDT ECHOCARDIOLOGY IMAGE EXAM Routine 2013 8:56 AM CDT ECHO STRESS Routine 10/26/2013 8:45 AM CDT DX CHEST PORTABLE 1 VIEW Routine 014 2:41 PM CDT AUTOMATED DIFFERENTIAL, B Routine 2013 2:40 PM CDT D-DIMER, P Routine 10/13/2013 2:40 PM CDT CBC WITH DIFFERENTIAL, B Routine 014 2:40 PM CDT TROPONIN T, 5TH GEN, P Routine 4 2:40 PM CDT NT-PRO B-TYPE NATRIURETIC PEPTIDE (BNP), S Routine 10/13/2013 2:40 PM CDT MAGNESIUM, S Routine 10/13/2013 2:40 PM CDT COMPREHENSIVE METABOLIC PANEL, S/P Routine 10/13/2013 2:[address] HEAD WITHOUT IV CONTRAST Routine 06/09 12:44 PM CDT AUTOMATED DIFFERENTIAL, B Routine 2013 9:38 AM CDT CBC WITH DIFFERENTIAL, B Routine 014 9:38 AM CDT BASIC METABOLIC PANEL, S/P Routine 06/26 9:38 AM CDT HEMOGLOBIN A1C, B Routine 05/17/2013 12:00 PM DEPARTURE CLERK ALANINE AMINOTRANSFERASE (ALT), S/P Routine 05/10/2013 8:00 AM DEPARTURE CLERK LIPID PANEL, S Routine 05/10/2013 8:00 AM DEPARTURE CLERK BASIC METABOLIC PANEL, S/P Routine 05/10 8:00 AM DEPARTURE CLERK AUTOMATED DIFFERENTIAL, B Routine 2012 11:12 AM DEPARTURE CLERK SEDIMENTATION RATE, B Routine 04/14/2012 11:12 AM DEPARTURE CLERK CBC WITH DIFFERENTIAL, B Routine 013 11:12 AM DEPARTURE CLERK ALANINE AMINOTRANSFERASE (ALT), S/P Routine 03/03/2012 10:37 AM DEPARTURE CLERK LIPID PANEL, S Routine 03/03/2012 10:37 AM DEPARTURE CLERK MR BRAIN WITHOUT AND WITH IV CONTRAST Routine 01/12/2012 7:00 PM CDT MR BRAIN ANGIOGRAM WITHOUT I V CONTRAST Routine 01/12/2012 7:00 PM CDT AUTOMATED DIFFERENTIAL, B Routine 2011 3:45 PM CDT CBC WITH DIFFERENTIAL, B Routine 012 3:45 PM CDT BASIC METABOLIC PANEL, S/P Routine 01/10 3:45 PM CDT LIPID PANEL, S Routine 07/24/2011 7:55 AM CDT ALANINE AMINOTRANSFERASE (ALT), S/P Routine 07/24/2011 7:55 AM CDT BASIC METABOLIC PANEL, S/P Routine 07/23 7:55 AM CDT LIPID PANEL, S Routine 04/29/2011 8:05 AM DEPARTURE CLERK ALANINE AMINOTRANSFERASE (ALT), S/P Routine 04/29/2011 8:05 AM DEPARTURE CLERK ELBOW, 1-2VWS Routine 02/19/2011 9:16 AM DEPARTURE CLERK HIPS, 3-4 VWS Routine 06/03/2010 8:12 AM DEPARTURE CLERK MR LOWER EXTREMITY Routine 05/26/2010 9:59 AM DEPARTURE CLERK US EXTREMITY VEINS Routine 03/31/2010 2:34 PM DEPARTURE CLERK DX HIP UNILATERAL 2+ VIEWS Routine 03/18 2:01 PM DEPARTURE CLERK ABORH, RBC Routine 03/17/2010 1:53 PM DEPARTURE CLERK ANTIBODY SCREEN, B Routine 03/17/2010 1:49 PM DEPARTURE CLERK MR LOWER EXTREMITY Routine 12/17/2009 8:05 AM CDT DX KNEE STANDING 4 VIEWS Routine 010 11:02 AM CDT OUTSIDE DX SKELETAL Routine 12/11/2009 9:01 AM CDT ORTHOPEDIC SURGERY IMAGE EXAM Routine 9:01 AM CDT DX HIP UNILATERAL 2+ VIEWS Routine 12/11 8:58 AM CDT COMPARE OF OUTSIDE CT CHEST Routine 08/10 3:16 AM CDT COMPARE OF OUTSIDE CT ABDOME N AND OR PELVIS Routine 09/01/2009 3:16 AM CDT COMPARE OF OUTSIDE DX CHEST Routine 08/10 1:40 AM CDT ORTHOPEDIC SURGERY IMAGE EXAM Routine 9:17 AM CDT HIPS, 3-4 VWS Routine 08/08/2009 11:46 AM CDT DX LUMBAR SPINE 4+ VIEWS Routine 010 11:46 AM CDT MR LUMBAR SPINE WITHOUT IV CONTRAST Routine 08/08/2009 10:54 AM CDT OUTSIDE DX SKELETAL Routine 07/12/2009 10:53 PM CDT COMPARE OF OUTSIDE DX EXTREMITY Routine 07/12/2009 10:[address] BODY Routine 04/11/2009 9:46 AM DEPARTURE CLERK OUTSIDE DX CHEST Routine 04/11/2009 9:26 AM DEPARTURE CLERK OUTSIDE DX SKELETAL Routine 12/24/2008 9:03 AM CDT RADIOLOGY IMAGE EXAM Routine 12/24/2008 9:03 AM CDT OUTSIDE DX SKELETAL Routine 08/20/2008 9:11 AM CDT RADIOLOGY IMAGE EXAM Routine 08/20/2008 9:11 AM CDT FL FLUORO LESS THAN 1 HOUR Routine 07/03 10:59 AM CDT OUTSIDE MR NEURO Routine 06/30/2008 2:53 PM CDT RADIOLOGY IMAGE EXAM Routine 06/30/2008 2:53 PM CDT OUTSIDE DX SKELETAL Routine 06/25/2008 12:41 PM CDT RADIOLOGY IMAGE EXAM Routine 06/25/2008 12:41 PM CDT RADIOLOGY IMAGE EXAM Routine 06/04/2008 9:49 AM DEPARTURE CLERK RADIOLOGY IMAGE EXAM Routine 06/04/2008 8:48 AM DEPARTURE CLERK OUTSIDE DX SKELETAL Routine 06/04/2008 8:48 AM DEPARTURE CLERK OUTSIDE DX CHEST Routine 05/24/2008 8:46 PM DEPARTURE CLERK RADIOLOGY IMAGE EXAM Routine 05/24/2008 8:46 PM DEPARTURE CLERK RADIOLOGY IMAGE EXAM Routine 05/21/2008 1:47 PM DEPARTURE CLERK OUTSIDE DX SKELETAL Routine 05/21/2008 1:47 PM DEPARTURE CLERK OUTSIDE DX CHEST Routine 05/14/2008 12:39 PM DEPARTURE CLERK RADIOLOGY IMAGE EXAM Routine 05/14/2008 12:39 PM DEPARTURE CLERK RADIOLOGY IMAGE EXAM Routine 04/22/2008 10:40 AM DEPARTURE CLERK OUTSIDE DX SKELETAL Routine 04/22/2008 10:37 AM DEPARTURE CLERK RADIOLOGY IMAGE EXAM Routine 04/22/2008 10:37 AM DEPARTURE CLERK OUTSIDE DX SKELETAL Routine 04/13/2007 9:28 AM DEPARTURE CLERK RADIOLOGY IMAGE EXAM Routine 04/13/2007 9:[address] HEAD WITHOUT IV CONTRAST Routine 06/10 2:06 PM DEPARTURE CLERK RADIOLOGY IMAGE EXAM Routine 04/16/2005 11:15 AM DEPARTURE CLERK RADIOLOGY IMAGE EXAM Routine 03/25/2005 4:38 PM DEPARTURE CLERK RADIOLOGY IMAGE EXAM Routine 03/10/2005 4:09 PM DEPARTURE CLERK RADIOLOGY IMAGE EXAM Routine 09/17/2004 7:02 AM CDT RADIOLOGY IMAGE EXAM Routine 07/16/2004 1:49 PM CDT RADIOLOGY IMAGE EXAM Routine 06/05/2004 3:24 PM DEPARTURE CLERK RADIOLOGY IMAGE EXAM Routine 06/05/2004 3:01 PM DEPARTURE CLERK Results * 6 MINUTE WALK (08/15/2023 8:00 AM CDT) Only the most recent of2 resultswithin the time period is included. Narrative El Chakraborty CCRP, CEP - 08/15/2023 8:00 AM CDT El Chakraborty CCRP, CEP ? 08/23/2023 ??8:28 AM Six Minute Walk Performed by: El Chakraborty CCRP CEP Authorized by: Jc Pan M.D. ?? Were medications taken in the last 24 hours?: yes ?? PRE WALK Assistive Device: ??None 6 Min Walk Distance Type: ??Hallway Height (cm): ??172 Weight (kg): ??98 BMI: ??33.1 Resting Heart Rate: ??65 Heart Rate Source: ??Telemetry Resp Rate: Resting SpO2: ??98 SpO2 Site: ??Finger Resting BP: ??128/68 BP Cuff Arm: ??Left BP Cuff Size: ??RegularSupplemental Oxygen used: ??Supplemental Oxygen Not Used Pain Score: ??0 Angina Scale: ??0 - No Angina Claudication Scale: ??1 - No Claudication Pain Sabine Dyspnea: ??0 - Nothing at all Sabine Fatigue: ??0 - Nothing at all Sabine Rating of Perceived Exertion (RPE): ??6 - No exertion at all POST WALK Heart Rate: ??115 Heart Rate Source: ??Telemetry SpO2: ??97 BP: ??144/78 BP Cuff Side: ??Left Pain Score: ??0 Angina Scale: ??0 - No Angina Claudication Scale: ??1 - No Claudication Pain Sabine Dyspnea: ??2 - Slight Sabine Fatigue: ??2 - Slight Sabine Rating of Perceived Exertion: ??12 - Moderate Time of Test: ??08:00 CDT Total Distance Walked (Feet): ??1800 Total Distance Walked (Meters): ??548.64 Total # of Times Stopped: ??0 Time Stopped (Seconds): ??0 Time Walked (Seconds): ??360 1 MINUTE POST WALK Resting Heart Rate: ??89 Heart Rate Source: ??Telemetry Resting SpO2: ??98 Resting BP: ??130/66 BP Cuff Side: ??Left Pain Score: ??0 Sabine Dyspnea: ??0 -Nothing at all Sabine Rating of Perceived Exertion: ??6 - No exertion at all CALCULATIONS Estimated MPH: ??3.4 Estimated METs: ??3.61 % of Predicted Distance: ??115.39 Jc Pan M.D. CV STRESS PROCED URES * Lipid Panel (07/27/2023 9:20 AM CDT) Only the most recent of6 resultswithin the time period is included. [facility] Triglycerides 111 mg/dL 07/27/2023 9:52 AM CDT [facility] Comment: ----REFERENCE VALUE---- Normal: <150 mg/dL Borderline High: 150-199 mg/dL High: 200-499 mg/dL Very High: > or =500 mg/dL Cholesterol, Total 173 mg/dL 2023 9:52 AM CDT [facility] Comment: ----REFERENCE VALUE---- Desirable: < 200 mg/dL [...] CDT Tal Roque M.D. LAB BLOOD ADD-ON [facility] [address] [place] [address], [facility] [place] [address] * CBC without Differential (07/27/2023 9:20 AM CDT) Only the most recent of15 resultswithin the time period is included. Hemoglobin 13.4 13.2 - 16.6 g/dL 07/27/2023 9:40 AM CDT [facility] Hematocrit 41.7 38.3 - 48.6 % 07/27/2023 9:40 AM CDT [facility] Erythrocytes 4.54 4.35 - 5.65 x10(12)/L 07/27/2023 9:40 AM CDT [facility] MCV 91.9 78.2 - 97.9 fL 07/27/2023 9:40 AM CDT [facility] RBC Distrib Width 13.6 11.8 - 14.5 % 07/27/2023 9:40 AM CDT [facility] Platelet Count 250 135 - 317 x10(9)/L 07/27/2023 9:40 AM CDT [facility] Leukocytes 5.3 3.4 - 9.6 x10(9)/L 07/27/2023 9:40 AM CDT [facility] Blood (Blood, Venous) 07/27/2023 9:20 AM CDT 07/27/2023 9:23 AM CDT Tal Roque M.D. LAB BLOOD ADD-ON [facility] [address] [place] [address], [facility] CN[facility] [place] [address] * (ABNORMAL) Basic Metabolic Panel (05/05/2023 8:13 AM DEPARTURE CLERK) Only the most recent of20 resultswithin the time period is included. Pathologist [facility] Potassium, S 3.5(L) 3.6 - 5.2 mmol/L 05/05/2023 9:33 AM DEPARTURE CLERK DTL Sodium, S 139 135 - 145 mmol/L 05/05/2023 9:33 AM DEPARTURE CLERK DTL Chloride, S 99 98 - 107 mmol/L 05/05/2023 9:33 AM DEPARTURE CLERK DTL Bicarbonate, S 28 22 - 29 mmol/L 05/05/2023 9:33 AM DEPARTURE CLERK DTL Anion Gap 12 7 - 15 05/05/2023 9:33 AM DEPARTURE CLERK DTL BUN (Blood Urea Nitrogen), S 11 8 - 24 mg/dL 05/05/2023 9:33 AM DEPARTURE CLERK DTL Creatinine 0.92 0.74 - 1.35 mg/dL 05/05/2023 9:33 AM DEPARTURE CLERK DTL Estimated GFR (eGFR) >90 >=60 mL/min/BSA 05/05/2023 9:33 AM DEPARTURE CLERK DTL Comment: Estimated GFR calculated using the 2020 CKD_EPI creatinine equation. Calcium, Total, S 8.9 8.8 - 10.2 mg/dL 05/05/2023 9:33 AM DEPARTURE CLERK DTL Glucose, S 160(H) 70 - 140 mg/dL 05/05/2023 9:33 AM DEPARTURE CLERK DTL Blood (Blood, Arterial) 05/05/2023 8:13 AM DEPARTURE CLERK 05/05/2023 8:49 AM DEPARTURE CLERK Kanu Thayer P.A.-C. LAB BLOOD ADD- ON [facility] [address] [place] [address], [facility] [address] [place] [address] * (TTE) 2D ECHO DOPPLER COLOR AND CONTRAST (05/04/2023 1:23 PM DEPARTURE CLERK) Ejection Fraction 55 MC CV EIMS LV End-Diastolic Volume 80 MC CV EIMS LV End-Systolic Volume 34 MC CV EIMS MV E Velocity 0.6 MC CV EIMS MV A Velocity 0.6 MC CV EIMS MV E/A 1 MC CV EIMS MV e' Velocity Medial 0.07 MC CV EIMS MV e' Velocity Lateral 0.11 MC CV EIMS MV E/e' Medial 8.6 MC CV EIMS MV E/e' Lateral 5.5 MC CV EIMS Left ventricular stroke volume index 29 MC CV EIMS Cardiac Output 5.46 MC CV EIMS Cardiac Index 2.64 MC CV EIMS Tricuspid Annular S? 0.08 MC CV EIMS TR Vmax 2.21 MC CV EIMS RA Pressure 5 MC CV EIMS RV Systolic Pressure 25 MC CV EIMS Anatomical Region Laterality Modality Echocardiography 05/04/2023 11:5 8 AM DEPARTURE CLERK Impressions 05/04/2023 4:37 PM DEPARTURE CLERK Status post coronary artery bypass graft(s) , 28-APR-2023. Intravenous Definity ultrasound enhancement agent(s) administered to enhance endocardial border definition. LEFT VENTRICLE:Small left ventricular chamber size (LVEDV 39 mL/m2 using enhanced imaging). Sigmoid ventricular septum with basal septal prominence: 15 mm Estimated left ventricular ejection fraction range 55% - 60%. Calculated 2-D biplane volumetric left ventricular ejection fraction of 58% with the use of ultrasound enhancing agent. No regional wall motion abnormalities. Left ventricular stroke volume index 29 ml/m2. Left ventricular cardiac index 2.64 l/min/m2. Indeterminate left ventricular diastolic function. RIGHT VENTRICLE:Normal right ventricular chamber size. Mildly reduced right ventricular systolic function. Estimated right ventricular systolic pressure 25 mmHg (right atrial pressure of 5 mmHg). ATRIA:Normal left atrial size by visual estimate. Normal right atrial size by visual estimate. CARDIAC VALVES:Mildly thickened aortic valve. Trivial aortic valve regurgitation. Mildly thickened mitral valve. Trivial mitral valve regurgitation. Normal tricuspid valve. Trivial tricuspid valve regurgitation. OTHER ECHO FINDINGS:Small inferior vena cava size with complete collapse. No intracardiac mass or thrombus, but the left atrial appendage cannot be visualized adequately with transthoracic echo to exclude thrombus in this location. Prominent anterior epicardial fat layer. Lipomatous atrial septum. No ??pericardial effusion. Attempts were made to optimize the echocardiographic images and two or more left ventricular segments were not visualized adequately to evaluate cardiac structure. The patient's current allergies and medications have been screened. Imaging enhancement agent administered per Echocardiography Contrast Administration Protocol Reference Document [id number] Rev 07/23/2021. Patient met an inclusion criterion and did not have contraindications in screening sections. For the complete report, see the Order-Level Documents. Narrative 05/04/2023 4:37 PM DEPARTURE CLERK For the complete report, see the Order-Level Documents. Hemodynamics Heart Rate: 89 BPM Blood Pressure: 84 / 63 mmHg ECG: Sinus rhythm Final Impressions 1. Status post coronary artery bypass graft(s) , 28-APR-2023. 2. Small left ventricular chamber size, estimated ejection fraction range 55% - 60%. 3. Normal right ventricular chamber size, mildly reduced systolic function. 4. Estimated right ventricular systolic pressure 25 mmHg (systolic blood pressure 84 mmHg). 5. No hemodynamically significant valvular heart disease. 6. Small inferior vena cava size with complete collapse. 7. No ??pericardial effusion. 8. Subtle evidence of constrictive hemodynamics. This is common post-cardiac surgery. Procedure Note Edy Young M.D., Ph.D. - 05/04/2023 For the complete report, see the Order-Level Documents. Hemodynamics Heart Rate: 89 BPM Blood Pressure: 84 / 63 mmHg ECG: Sinus rhythm Final Impressions 1. Status post coronary artery bypass graft(s) , 28-APR-2023. 2. Small left ventricular chamber size, estimated ejection fraction range55% - 60%. 3. Normal right ventricular chamber size, mildly reduced systolicfunction. 4. Estimated right ventricular systolic pressure 25 mmHg (systolic bloodpressure 84 mmHg). 5. No hemodynamically significant valvular heart disease. 6. Small inferior vena cava size with complete collapse. 7. No pericardial effusion. 8. Subtle evidence of constrictive hemodynamics. This is commonpost-cardiac surgery. Findings Status post coronary artery bypass graft(s) , 28-APR-2023. IntravenousDefinity ultrasound enhancement agent(s) administered to enhanceendocardial border definition. LEFT VENTRICLE:Small left ventricular chamber size (LVEDV 39 mL/m2 usingenhanced imaging). Sigmoid ventricular septum with basal septalprominence: 15 mm Estimated left ventricular ejection fraction range 55% -60%. Calculated 2-D biplane volumetric left ventricular ejection fractionof 58% with the use of ultrasound enhancing agent. No regional wall motionabnormalities. Left ventricular stroke volume index 29 ml/m2. Leftventricular cardiac index 2.64 l/min/m2. Indeterminate left ventriculardiastolic function. RIGHT VENTRICLE:Normal right ventricular chamber size. Mildly reducedright ventricular systolic function. Estimated right ventricular systolicpressure 25 mmHg (right atrial pressure of 5 mmHg). ATRIA:Normal left atrial size by visual estimate. Normal right atrial sizeby visual estimate. CARDIAC VALVES:Mildly thickened aortic valve. Trivial aortic valveregurgitation. Mildly thickened mitral valve. Trivial mitral valveregurgitation. Normal tricuspid valve. Trivial tricuspid valveregurgitation. OTHER ECHO FINDINGS:Small inferior vena cava size with complete collapse.No intracardiac mass or thrombus, but the left atrial appendage cannot bevisualized adequately with transthoracic echo to exclude thrombus in thislocation. Prominent anterior epicardial fat layer. Lipomatous atrialseptum. No pericardial effusion. Attempts were made to optimize theechocardiographic images and two or more left ventricular segments werenot visualized adequately to evaluate cardiac structure. The patient'scurrent allergies and medications have been screened. Imaging enhancementagent administered per Echocardiography Contrast Administration ProtocolReference Document [id number] Rev 07/23/2021. Patient met an inclusioncriterion and did not have contraindications in screening sections. For the complete report, see the Order-Level Documents. Garret Rayo APRN.N.Es., D.N.P. CV ECHO PROCEDURES * (ABNORMAL) Lactate (05/04/2023 12:03 PM DEPARTURE CLERK) Only the most recent of8 resultswithin the time period is included. Lactate, P 2.5(H) 0.5 - 2.2 mmol/L 05/04/2023 12:24 PM DEPARTURE CLERK STMA Blood (Blood, Venous) 05/04/2023 12:03 PM DEPARTURE CLERK 05/04/2023 12:11 PM DEPARTURE CLERK Garret Rayo APRN.N.P., D.N.P. LAB BLOOD NON ADD-ON [facility] [address] [place] [address], [facility] [address] [place] [address] * DX Chest AP or PA and Lateral 2 Views (05/04/2023 9:49 AM DEPARTURE CLERK) Only the most recent of2 resultswithin the time period is included. Anatomical Region Laterality Modality Chest, Thoracic RST LOS, Tho racic ARZ LOS, Thoracic FLA LOS N/A Digital Radiography Impressions 05/04/2023 11:04 AM DEPARTURE CLERK Since 05/02/2023, no definite pneumothorax. Remainder not significantly changed. Persistent pneumomediastinum seen anteriorly on the lateral view, slightly redistributed since the prior exam. Sternotomy with mediastinal clips. Enlarged cardiac silhouette. Multifocal atelectasis. Narrative 05/04/2023 11:04 AM DEPARTURE CLERK EXAM: ??DX CHEST AP OR PA AND LATERAL 2 VIEWS Procedure Note Sandeep Philippe M.D. - 05/04/2023 EXAM: DX CHEST AP OR PA AND LATERAL 2 VIEWS IMPRESSION: Since 05/02/2023, no definite pneumothorax. Remainder not significantlychanged. Persistent pneumomediastinum seen anteriorly on the lateral view,slightly redistributed since the prior exam. Sternotomy with mediastinalclips. Enlarged cardiac silhouette. Multifocal atelectasis. Min Booker APRN C.N.P., D.N.P. IMG DIAGNOSTIC IMAGING PROCEDURES * Lower Extremity-Cardiovascular Surgery Image Exam (05/03/2023 11:40 PM DEPARTURE CLERK) 05/03/2023 11:3 9 PM DEPARTURE CLERK Narrative IIMS - 05/03/2023 11:42 PM DEPARTURE CLERK This order has been created and auto-finalized to support the import of images acquired without order. The clinical documentation to support these images can be found on the encounter that produced images. Provider Not In System IMG NON RAD IMAGI NG PROCEDURES Performing Organization Address [facility] de Phone Number IIMS NA * ECG 12 Lead (05/03/2023 6:42 PM DEPARTURE CLERK) Only the most recent of12 resultswithin the time period is included. Ventricular Rate ECG/Min 110 BPM MUSE ME Interval 144 ms MUSE QRSD Interval 90 ms MUSE QT Interval 362 ms MUSE QTC Interval 489 ms MUSE P [place] 24 degrees MUSE R [place] -26 degrees MUSE T Wave [place] 27 degrees MUSE 05/03/2023 6:42 PM DEPARTURE CLERK 05/03/2023 6:59 PM DEPARTURE CLERK Impressions MUSE - 05/03/2023 7:00 PM DEPARTURE CLERK Sinus tachycardia Nonspecific ST and T wave abnormality When compared with ECG of 03-MAY-2023 05:13, Premature atrial complexes are no longer present Reviewed by FLORENTINO Jo Narrative Procedure Note Germain Duong M.D. - 05/03/2023 IMPRESSION: Sinus tachycardia Nonspecific ST and T wave abnormality When compared with ECG of 03-MAY-2023 05:13, Premature atrial complexes are no longer present Reviewed by FLORENTINO Jo Garret Rayo APRN.N.P., D.N.P. ECG ORDERABLES Performing Organization Address [facility]/State/ZIP Co de Phone Number MUSE NA * Potassium (05/03/2023 5:52 PM DEPARTURE CLERK) Only the most recent of3 resultswithin the time period is included. Potassium, S 3.6 3.6 - 5.2 mmol/L 05/03/2023 7:46 PM DEPARTURE CLERK DTL Blood (Blood, Venous) 05/03/2023 5:52 PM DEPARTURE CLERK 05/03/2023 6:25 PM DEPARTURE CLERK Min Booker APRN, C.N.P., D.N.P. LAB BLOOD ADD-ON [facility] [address] [place] [address], [facility] [address] [place] [address] * DX Chest Portable 1 View (05/02/2023 7:28 AM DEPARTURE CLERK) Only the most recent of7 resultswithin the time period is included. Anatomical Region Laterality Modality Chest, Thoracic RST LOS, Tho racic ARZ LOS, Thoracic FLA LOS N/A Digital Radiography Impressions 05/02/2023 7:32 AM DEPARTURE CLERK Mild cardiomegaly. Slightly improved aeration of the lung parenchyma with minimally increased expansion. Retrocardiac atelectasis and consolidation. Small left pleural effusion and very small biapical pneumothoraces, similar to the prior study. Chest tubes in the lung bases. Sternotomy wires. Mediastinal drains. The visualized portion of the upper abdomen demonstrates mild gaseous distention of colonic loops and stomach. Narrative 05/02/2023 7:32 AM DEPARTURE CLERK EXAM: ??DX CHEST PORTABLE 1 VIEW Procedure Note Adelia Swenson M.D. - 05/02/2023 EXAM: DX CHEST PORTABLE 1 VIEW IMPRESSION: Mild cardiomegaly. Slightly improved aeration of the lung parenchyma withminimally increased expansion. Retrocardiac atelectasis and consolidation.Small left pleural effusion and very small biapical pneumothoraces,similar to the prior study. Chest tubes in the lung bases. Sternotomy wires. Mediastinaldrains. The visualized portion of the upper abdomen demonstrates mildgaseous distention of colonic loops and stomach. Kanu Thayer P.A.-C. IMG DIAGNOSTIC IMAGING PROCEDURES * Magnesium (05/02/2023 5:57 AM DEPARTURE CLERK) Only the most recent of4 resultswithin the time period is included. Pathologist [facility] Magnesium, S 2.0 1.7 - 2.3 mg/dL 05/02/2023 8:50 AM DEPARTURE CLERK DTL Blood (Blood, Venous) 05/02/2023 5:57 AM DEPARTURE CLERK 05/02/2023 8:31 AM DEPARTURE CLERK Dianne Majano APRN, C.N.P., D.N.P. LAB BLOOD ADD-ON [facility] [address] [place] [address], [facility] DTL [facility] [address] [place] [address] * Glucose, POCT (05/01/2023 8:23 PM DEPARTURE CLERK) Only the most recent of43 resultswithin the time period is included. [facility] Glucose, POCT, B 127 70 - 140 mg/dL 05/01/2023 8:31 PM DEPARTURE CLERK PCLX Site Capillary 05/01/2023 8:31 PM DEPARTURE CLERK PCLX Last Intake 2-3 hours 05/01/2023 8:31 PM DEPARTURE CLERK PCLX Blood 05/01/2023 8:23 PM DEPARTURE CLERK 05/01/2023 8:32 PM DEPARTURE CLERK Unknown Provider LAB POCT ORDERABLES- MANUAL POC [facility] [address] [place] [address], [facility] PCLX [facility] POC [address] [place] [address] * (TTE) 2D LIMITED ONLY (05/01/2023 3:00 PM DEPARTURE CLERK) Ejection Fraction 50 MC CV EIMS Left ventricular stroke volume index 40 MC CV EIMS Cardiac Output 8.73 MC CV EIMS Cardiac Index 4.14 MC CV EIMS AV mean gradient 3 MC CV EIMS Aortic valve area 4.2 MC CV EIMS Aortic Valve Dimensionless Index 0.86 MC CV EIMS Aortic Valve Systolic Peak Velocity 1.2 MC CV EIMS Anatomical Region Laterality Modality Echocardiography 05/01/2023 1:45 PM DEPARTURE CLERK Impressions 05/01/2023 3:06 PM DEPARTURE CLERK Echo performed in the ICU to assess for pericardial effusion. LEFT VENTRICLE:Normal left ventricular chamber size. Sigmoid ventricular septum with basal septal prominence: 15 mm Estimated left ventricular ejection fraction range 50% - 55%. No regional wall motion abnormalities in the setting of atrial flutter with rapid ventricular response. Left ventricular stroke volume index 40 ml/m2. Left ventricular cardiac index 4.14 l/min/m2. Indeterminate left ventricular filling pressure (likely normal). RIGHT VENTRICLE:Normal right ventricular chamber size. Normal right ventricular systolic function. Unable to detect peak tricuspid regurgitation velocity for pulmonary artery systolic pressure calculation. ATRIA:Normal left atrial size by visual estimate. Normal right atrial size by visual estimate. CARDIAC VALVES:Mildly thickened aortic valve. Trivial aortic valve regurgitation. Mildly thickened mitral valve. Trivial mitral valve regurgitation. Normal tricuspid valve. Trivial tricuspid valve regurgitation. OTHER ECHO FINDINGS:Normal inferior vena cava size with normal inspiratory collapse (>50%). No intracardiac mass or thrombus, but the left atrial appendage cannot be visualized adequately with transthoracic echo to exclude thrombus in this location. Prominent anterior epicardial fat layer. Lipomatous atrial septum. Tiny ??pericardial effusion. For the complete report, see the Order-Level Documents. Narrative 05/01/2023 3:06 PM DEPARTURE CLERK For the complete report, see the Order-Level Documents. Hemodynamics Heart Rate: 101 BPM Blood Pressure: 131 / 84 mmHg ECG: Atrial flutter, Normal QRS Final Impressions 1. Emergent echocardiogram performed at the patient's bedside to assess for pericardial effusion post CABG. 2. Tiny ??pericardial effusion No evidence for hemodynamic effect. 3. Prominent anterior epicardial fat layer and lipomatous atrial septum. 4. Normal left ventricular chamber size, no regional wall motion abnormalities, estimated ejection fraction range 50% - 55%. 5. Left ventricular cardiac index 4.14 l/min/m2. 6. Normal right ventricular chamber size, normal systolic function, unable to detect peak tricuspid regurgitation velocity for pulmonary artery systolic pressure calculation. 7. No hemodynamically significant valvular heart disease. 8. Normal inferior vena cava size with normal inspiratory collapse (>50%). 9. The study was performed in the setting of persistent atrial flutter with rapid ventricular response. 10. Compared to the report of 04/23/2023 the following changes have occurred: There is atrial flutter with rapid ventricular response. ??Tiny pericardial effusion was demonstrated anterior to RV on short axis images. There is a prominent anterior epicardial fat that was also visualized in the pre-operative TTE. Procedure Note Ton Armendariz M.D. - 05/01/2023 For the complete report, see the Order-Level Documents. Hemodynamics Heart Rate: 101 BPM Blood Pressure: 131 / 84 mmHg ECG: Atrial flutter, Normal QRS Final Impressions 1. Emergent echocardiogram performed at the patient's bedside to assessfor pericardial effusion post CABG. 2. Tiny pericardial effusion No evidence for hemodynamic effect. 3. Prominent anterior epicardial fat layer and lipomatous atrial septum. 4. Normal left ventricular chamber size, no regional wall motionabnormalities, estimated ejection fraction range 50% - 55%. 5. Left ventricular cardiac index 4.14 l/min/m2. 6. Normal right ventricular chamber size, normal systolic function, unableto detect peak tricuspid regurgitation velocity for pulmonary arterysystolic pressure calculation. 7. No hemodynamically significant valvular heart disease. 8. Normal inferior vena cava size with normal inspiratory collapse(>50%). 9. The study was performed in the setting of persistent atrial flutterwith rapid ventricular response. 10. Compared to the report of 04/23/2023 the following changes haveoccurred: There is atrial flutter with rapid ventricular response. Tinypericardial effusion was demonstrated anterior to RV on short axis images.There is a prominent anterior epicardial fat that was also visualized inthe pre-operative TTE. Findings Echo performed in the ICU to assess for pericardial effusion. LEFT VENTRICLE:Normal left ventricular chamber size. Sigmoid ventricularseptum with basal septal prominence: 15 mm Estimated left ventricularejection fraction range 50% - 55%. No regional wall motion abnormalitiesin the setting of atrial flutter with rapid ventricular response. Leftventricular stroke volume index 40 ml/m2. Left ventricular cardiac index4.14 l/min/m2. Indeterminate left ventricular filling pressure (likelynormal). RIGHT VENTRICLE:Normal right ventricular chamber size. Normal rightventricular systolic function. Unable to detect peak tricuspidregurgitation velocity for pulmonary artery systolic pressurecalculation. ATRIA:Normal left atrial size by visual estimate. Normal right atrial sizeby visual estimate. CARDIAC VALVES:Mildly thickened aortic valve. Trivial aortic valveregurgitation. Mildly thickened mitral valve. Trivial mitral valveregurgitation. Normal tricuspid valve. Trivial tricuspid valveregurgitation. OTHER ECHO FINDINGS:Normal inferior vena cava size with normal inspiratorycollapse (>50%). No intracardiac mass or thrombus, but the left atrialappendage cannot be visualized adequately with transthoracic echo toexclude thrombus in this location. Prominent anterior epicardial fatlayer. Lipomatous atrial septum. Tiny pericardial effusion. For the complete report, see the Order-Level Documents. Kanu Thayer P.A.-C. CV ECHO PROCED URES * Transfuse Red Blood Cells : (05/01/2023 10:54 AM DEPARTURE CLERK) Narendra Fox P.A.-C. BLOOD TRANSFUSI ON ORDERABLES * (ABNORMAL) Glucose, Random (05/01/2023 8:38 AM DEPARTURE CLERK) Pathologist [facility] Glucose, P 151(H) 70 - 140 mg/dL 05/01/2023 9:00 AM DEPARTURE CLERK [email or web address] Blood (Blood, Arterial) 05/01/2023 8:38 AM DEPARTURE CLERK 05/01/2023 8:41 AM DEPARTURE CLERK Kanu Thayer P.A.-C. LAB BLOOD TROP ONIN [facility] [address] [place] [address], [facility] [address] [place] [address] * Type and Screen (with Reflex Antibody ID) (05/01/2023 6:26 AM DEPARTURE CLERK) Only the most recent of2 resultswithin the time period is included. ABORh A Pos Not applicable 05/01/2023 7:31 AM DEPARTURE CLERK STRM Antibody Screen Negative Negative 05/01/2023 7:44 AM DEPARTURE CLERK STRM Type & Screen Expiration 05/04/2023 23:59 05/01/2023 7:31 AM DEPARTURE CLERK STRM Testing Location [place] DEFAULT 05/01/2023 6:32 AM DEPARTURE CLERK STRM Blood (Blood, Venous) 05/01/2023 6:26 AM DEPARTURE CLERK 05/01/2023 6:32 AM DEPARTURE CLERK Narendra Fox P.A.-C. LAB BLOOD BANK TEST ORDERABLES [facility] [address] [place] [address], [facility] STRM [facility] [address] [place] [address] * DX Chest Portable with AM Rounds 1 View (05/01/2023 3:42 AM DEPARTURE CLERK) Only the most recent of3 resultswithin the time period is included. Anatomical Region Laterality Modality Chest, Thoracic RST LOS, Tho racic ARZ LOS, Thoracic FLA LOS N/A Digital Radiography Impressions 05/01/2023 9:53 AM DEPARTURE CLERK Since yesterday, new tiny left apical pneumothorax. Sycamore-Kylie catheter has been removed. Otherwise, no significant change. Low lung volumes with bibasilar atelectasis. Retrocardiac consolidation/atelectasis. Bilateral chest tubes. Mediastinal drains. Epicardial pacing wires. Sternotomy with mediastinal clips. RUQ surgical clips. Left TSA. Moderate degenerative changes right shoulder. Narrative 05/01/2023 9:53 AM DEPARTURE CLERK EXAM: ??DX CHEST PORTABLE WITH AM ROUNDS 1 VIEW Procedure Note Wilber Edwards M.D. - 05/01/2023 EXAM: DX CHEST PORTABLE WITH AM ROUNDS 1 VIEW IMPRESSION: Since yesterday, new tiny left apical pneumothorax. Sycamore-Kylie catheter hasbeen removed. Otherwise, no significant change. Low lung volumes withbibasilar atelectasis. Retrocardiac consolidation/atelectasis. Bilateralchest tubes. Mediastinal drains. Epicardial pacing wires. Sternotomy with mediastinalclips. RUQ surgical clips. Left TSA. Moderate degenerative changes rightshoulder. Kanu Thayer P.A.-C. IMG DIAGNOSTIC IMAGING PROCEDURES * Bacteria / Paula Culture, Blood #2 (04/30/2023 11:10 AM DEPARTURE CLERK) Only the most recent of2 resultswithin the time period is included. [facility] Bacteria/Milagro da Culture, Blood No growth after 5 days of incubation. 05/05/2023 1:02 PM DEPARTURE CLERK DTL Blood (Blood, Peripheral Draw) 04/30/2023 11:10 AM DEPARTURE CLERK 04/30/2023 12:20 PM DEPARTURE CLERK Comment:Specimen Source Site : Blood Marcio Tobin P.A.-C. LAB MICROBIOLOGY - GENERAL ORDERABLES Performing Organization Address City/[facility]/ZIP Co de Phone Number [facility] [address] DTL [facility] [address] [place] [address] * (ABNORMAL) Lactate for Sepsis with Reflex (04/30/2023 11:01 AM DEPARTURE CLERK) [facility] Lactate, P 2.3(H) 0.5 - 2.2 mmol/L 04/30/2023 11:36 AM DEPARTURE CLERK STMA Blood (Blood, Venous) 04/30/2023 11:01 AM DEPARTURE CLERK 04/30/2023 11:19 AM DEPARTURE CLERK Marcio Tobin P.A.-C. LAB BLOOD NON ADD -ON Performing Organization Address City/[facility]/ZIP Co de Phone Number [facility] [address] STMA [facility] [address] [place] [address] * ACT (Activated Clotting Time), POCT (04/29/2023 5:42 PM DEPARTURE CLERK) Only the most recent of8 resultswithin the time period is included. Activated Clotting Time, POCT 100 84 - 139 sec 04/29/2023 5:50 PM DEPARTURE CLERK PCSM Blood (Blood, Venous) 04/29/2023 5:42 PM DEPARTURE CLERK 04/29/2023 5:40 PM DEPARTURE CLERK Kanu Thayer P.A.-C. LAB POCT ORDER GISSELLE - DEVICE Performing Organization Address City/[facility] Co de Phone Number POC [facility] [address] [place] [address], [facility] PCSM [facility] POC [address] [place] [phone] * (ABNORMAL) Lactate, Whole Blood (04/29/2023 4:46 AM DEPARTURE CLERK) Only the most recent of5 resultswithin the time period is included. Pathologist [facility] Lactate, B 2.3(H) 0.5 - 2.2 mmol/L 04/29/2023 4:54 AM DEPARTURE CLERK STMA Blood (Blood, Arterial) 04/29/2023 4:46 AM DEPARTURE CLERK 04/29/2023 4:51 AM DEPARTURE CLERK Fransico Bardales M.D., M.P.H. LAB BL OOD NON ADD-ON Performing Organization Address City/[facility] Co de Phone Number [facility] [address] [place] [address], [facility] [address] [place] [address] * Patient Status (04/29/2023 4:46 AM DEPARTURE CLERK) Only the most recent of6 resultswithin the time period is included. FIO2 0.40 0.21=AIR 04/29/2023 4:51 AM DEPARTURE CLERK STMA Device Vent 04/29/2023 4:51 AM DEPARTURE CLERK STMA Spont. breaths/min 16 04/29/2023 4:51 AM DEPARTURE CLERK STMA Blood 04/29/2023 4:46 AM DEPARTURE CLERK 04/29/2023 4:51 AM DEPARTURE CLERK Fransico Bardales M.D., M.P.H. LAB BL OOD NON ADD-ON [facility] [address] [place] [address], [facility] STMA [facility] [address] [place] [address] * (ABNORMAL) Hepatic Function Panel (04/29/2023 4:46 AM DEPARTURE CLERK) Only the most recent of5 resultswithin the time period is included. Bilirubin, Total, S 0.3 0.0 - 1.2 mg/dL 04/29/2023 6:12 AM DEPARTURE CLERK DTL Bilirubin, Direct, S <0.2 0.0 - 0.3 mg/dL 04/29/2023 6:12 AM DEPARTURE CLERK DTL Aspartate Aminotransferase (AST), S 107(H) 8 - 48 U/L 04/29/2023 6:12 AM DEPARTURE CLERK DTL Alanine Aminotransferase (ALT), S 51 7 - 55 U/L 04/29/2023 6:12 AM DEPARTURE CLERK DTL Alkaline Phosphatase, S 67 40 - 129 U/L 04/29/2023 6:12 AM DEPARTURE CLERK DTL Albumin, S 3.1(L) 3.5 - 5.0 g/dL 04/29/2023 6:12 AM DEPARTURE CLERK DTL Protein, Total, S 4.3(L) 6.3 - 7.9 g/dL 04/29/2023 6:12 AM DEPARTURE CLERK DTL Blood (Blood, Arterial) 04/29/2023 4:46 AM DEPARTURE CLERK 04/29/2023 5:53 AM DEPARTURE CLERK Fransico Bardales M.D., M.P.H. LAB BL OOD ADD-ON [facility] [address] [place] [address], [facility] DTL [facility] [address] [place] [address] * (ABNORMAL) Blood Gas with Coox, Arterial (04/29/2023 4:46 AM DEPARTURE CLERK) Only the most recent of6 resultswithin the time period is included. pO2 83 83 - 108 mm Hg 04/29/2023 4:54 AM DEPARTURE CLERK STMA pCO2 40 35 - 48 mm Hg 04/29/2023 4:54 AM DEPARTURE CLERK STMA pH 7.46(H) 7.35 - 7.45 pH 04/29/2023 4:54 AM DEPARTURE CLERK STMA Base Excess 5(H) -2 - 3 mmol/L 04/29/2023 4:54 AM DEPARTURE CLERK STMA HCO3 29(H) 22 - 26 mmol/L 04/29/2023 4:54 AM DEPARTURE CLERK STMA Hemoglobin, Venous 9.8(L) 13.2 - 16.6 g/dL 04/29/2023 4:54 AM DEPARTURE CLERK STMA O2Hb 96.4 94.0 - 98.0 % 04/29/2023 4:54 AM DEPARTURE CLERK STMA COHb 1.1 <3.0 % 04/29/2023 4:54 AM DEPARTURE CLERK STMA MetHb <1.0 <1.5 % 04/29/2023 4:54 AM DEPARTURE CLERK STMA CtO2 13.5(L) 18.0 - 21.0 vol % 04/29/2023 4:54 AM DEPARTURE CLERK STMA Arterial Sample Site Art Line 04/29/2023 4:54 AM DEPARTURE CLERK STMA Comment:Monty's test not don e. Blood (Blood, Arterial) 04/29/2023 4:46 AM DEPARTURE CLERK 04/29/2023 4:51 AM DEPARTURE CLERK Fransico Bardales M.D., M.P.H. LAB BL OOD NON ADD-ON [facility] [address] [place] [address], [facility] [address] [place] [address] * APTT (Activated Partial Thromboplastin Time) (04/29/2023 4:46 AM DEPARTURE CLERK) Only the most recent of7 resultswithin the time period is included. Activated Partial Thrombopl Time, P 26 25 - 37 sec 04/29/2023 6:03 AM DEPARTURE CLERK DTL Blood (Blood, Arterial) 04/29/2023 4:46 AM DEPARTURE CLERK 04/29/2023 5:33 AM DEPARTURE CLERK Fransico Bardales M.D., M.P.H. LAB BL OOD ADD-ON Performing Organization Address City/[facility] Co de Phone Number [facility] [address] [facility] [address] [place] [address] * Prothrombin Time (PT) (04/29/2023 4:46 AM DEPARTURE CLERK) Only the most recent of5 resultswithin the time period is included. Prothrombin Time, P 11.1 9.4 - 12.5 sec 04/29/2023 6:03 AM DEPARTURE CLERK DTL INR 1.0 0.9 - 1.1 04/29/2023 6:03 AM DEPARTURE CLERK DTL Comment: ----ADDITIONAL INFORMATION---- Standard intensity warfarin therapeutic range: 2.0 to 3.0 ?? High intensity warfarin therapeutic range: 2.5 to 3.5 Blood (Blood, Arterial) 04/29/2023 4:46 AM DEPARTURE CLERK 04/29/2023 5:33 AM DEPARTURE CLERK Fransico Bardales M.D., M.P.H. LAB BL OOD ADD-ON Performing Organization Address City/[facility] Co de Phone Number [facility] [facility] [address] [facility] 200 [place] [address] * (ABNORMAL) Calcium, Ionized (04/29/2023 4:46 AM DEPARTURE CLERK) Only the most recent of6 resultswithin the time period is included. Calcium, Ionized, S 4.97 4.57 - 5.43 mg/dL 04/29/2023 6:12 AM DEPARTURE CLERK DTL Comment: ----ADDITIONAL INFORMATION---- This test has been modified from the computer science intern's instructions. Its performance characteristics were determined by [facility] in a manner consistent with CLIA requirements. This test has not been cleared or approved by the U.S. Food and Drug Administration. pH for Ionized Calcium 7.50(H) 7.35 - 7.48 04/29/2023 6:12 AM DEPARTURE CLERK DTL Blood (Blood, Venous) 04/29/2023 4:46 AM DEPARTURE CLERK 04/29/2023 5:53 AM DEPARTURE CLERK Narendra Fox P.A.-C. LAB BLOOD NON A DD-ON Performing Organization Address [facility] Co de Phone Number [facility] [address] [place] [address] * Tissue Inhibitor of Metalloproteinase 2 (TIMP-2) and Insulin-like Growth Factor Binding Protein 7 (IGFBP-7) Risk Score, Random, Urine (04/29/2023 2:38 AM DEPARTURE CLERK) TIMP2/IGFBP7 CHAD Risk Score, U 0.14 <0.30 (ng/mL)(2) /1000 04/29/2023 4:00 AM DEPARTURE CLERK [facility] Comment: ----ADDITIONAL INFORMATION---- <0.30= <0.30 is considered low risk for acute kidney injury. 0.30-2.00= 0.30-2.00 indicates increased risk for acute kidney injury. >2.00= >2.00 indicates high risk for acute kidney injury. Urine (Urine, Catheter) 04/29/2023 2:38 AM DEPARTURE CLERK 04/29/2023 2:42 AM DEPARTURE CLERK Fransico Bardales M.D., M.P.H. LAB UR INE ORDERABLES Performing Organization Address [facility] Co de Phone Number [facility] 200 [place] [address], [facility] STMA [facility] 200 [place] [address] * pH (04/28/2023 11:02 PM DEPARTURE CLERK) Pathologist [facility] pH 7.38 7.35 - 7.45 pH 04/28/2023 11:10 PM DEPARTURE CLERK [facility] [[email or web address]A Blood 04/28/2023 11:0 2 PM DEPARTURE CLERK 04/28/2023 11:07 PM DEPARTURE CLERK Narendra Fox P.A.-C. LAB HISTORICAL ORDERS Performing Organization Address [facility] Co de Phone Number [facility] [address] [place], [place] [id number] [place] [address] 200 [place] [address] * Transfuse Pooled Cryoprecipitate:Other (Specify); Bleeding post CVS; 180 mL/hr (04/28/2023 6:37 PM DEPARTURE CLERK) Kaylin Prieto P.A.-C. BLOOD TRANSFUSIO N ORDERABLES * (ABNORMAL) Fibrinogen (04/28/2023 4:12 PM DEPARTURE CLERK) Only the most recent of2 resultswithin the time period is included. Pathologist [facility] Fibrinogen, P 189(L) 200 - 393 mg/dL 04/28/2023 4:37 PM DEPARTURE CLERK [facility] [[email or web address]A Blood (Blood, Arterial) 04/28/2023 4:12 PM DEPARTURE CLERK 04/28/2023 4:17 PM DEPARTURE CLERK Fransico Bardales M.D., M.P.H. LAB BL OOD ADD-ON Performing Organization Address City/[facility] Co de Phone Number [facility] [address] [place] [address], [facility] [address] [place] [address] * (ABNORMAL) Blood Gas without Coox, Arterial (04/28/2023 4:12 PM DEPARTURE CLERK) Pathologist [facility] pO2 120(H) 83 - 108 mm Hg 04/28/2023 4:22 PM DEPARTURE CLERK [facility] [[email or web address]A pCO2 45 35 - 48 mm Hg 04/28/2023 4:22 PM DEPARTURE CLERK [facility] [[email or web address]A pH 7.26(L) 7.35 - 7.45 pH 04/28/2023 4:22 PM DEPARTURE CLERK [facility] Base Excess -7(L) -2 - 3 mmol/L 04/28/2023 4:22 PM DEPARTURE CLERK [facility] HCO3 21(L) 22 - 26 mmol/L 04/28/2023 4:22 PM DEPARTURE CLERK [facility] Arterial Sample Site Art Line 04/28/2023 4:22 PM DEPARTURE CLERK [facility] Comment:Monty's test not don e. Blood (Blood, Arterial Line) 04/28/2023 4:12 PM DEPARTURE CLERK 04/28/2023 4:17 PM DEPARTURE CLERK Fransico Bardales M.D., M.P.H. LAB BL OOD NON ADD-ON [facility] 200 [place] [address] * Sodium, B (04/28/2023 3:00 PM DEPARTURE CLERK) Only the most recent of4 resultswithin the time period is included. Sodium, B 139 135 - 145 mmol/L 04/28/2023 3:02 PM DEPARTURE CLERK [facility] [[email or web address]A Blood (Blood, Arterial Line) 04/28/2023 3:00 PM DEPARTURE CLERK 04/28/2023 3:00 PM DEPARTURE CLERK Leandro Otoole M.D. LAB BLOOD NON AD D-ON [facility] [address] [place] [address] * Potassium, Blood (04/28/2023 3:00 PM DEPARTURE CLERK) Only the most recent of4 resultswithin the time period is included. Potassium, B 4.0 3.6 - 5.2 mmol/L 04/28/2023 3:02 PM DEPARTURE CLERK [facility] [[email or web address]A Blood (Blood, Arterial Line) 04/28/2023 3:00 PM DEPARTURE CLERK 04/28/2023 3:00 PM DEPARTURE CLERK Leandro Otoole M.D. LAB BLOOD NON AD D-ON Performing Organization Address [facility] Co de Phone Number [facility] 200 [place] [address], [facility] 200 [place] [address] * (ABNORMAL) Glucose, Whole Blood (04/28/2023 3:00 PM DEPARTURE CLERK) Only the most recent of4 resultswithin the time period is included. Glucose 188(H) 70 - 140 mg/dL 04/28/2023 3:02 PM DEPARTURE CLERK [facility] Blood (Blood, Arterial Line) 04/28/2023 3:00 PM DEPARTURE CLERK 04/28/2023 3:00 PM DEPARTURE CLERK Leandro Otoole M.D. LAB BLOOD ADD-ON Performing Organization Address [facility] de Phone Number [facility] 200 [place] [address], [facility] 200 [place] [address] * Transfuse autologous RBC (Cell Salvage) : (04/28/2023 2:59 PM DEPARTURE CLERK) Only the most recent of2 resultswithin the time period is included. Leandro Otoole M.D. BLOOD TRANSFUSIO N ORDERABLES * Transfuse Platelets : (04/28/2023 2:28 PM DEPARTURE CLERK) Leandro Otoole M.D. BLOOD TRANSFUSIO N ORDERABLES * (ABNORMAL) Thromboelastograph, Kaolin + Heparinase (04/28/2023 1:47 PM DEPARTURE CLERK) R-Heparinase, TEG 4.3 1.9 - 6.5 min 04/28/2023 3:18 PM DEPARTURE CLERK [facility] K-Heparinase, TEG 1.0 1.0 - 1.9 min 04/28/2023 3:18 PM DEPARTURE CLERK [facility] Angle-Heparina se, TEG 75.7(H) 63.5 - 75.1 degrees 04/28/2023 3:18 PM DEPARTURE CLERK [facility] MA-Heparinase, TEG 71.1(H) 57.7 - 69.3 mm 04/28/2023 3:18 PM DEPARTURE CLERK [facility] Bn65-Wbgmjlnjk e, TEG 0.5 0.0 - 4.7 % 04/28/2023 3:18 PM DEPARTURE CLERK [facility] Rb03-Kvytcnxoq e, TEG 3.3 0.0 - 15.0 % 04/28/2023 3:18 PM DEPARTURE CLERK [facility] Blood (Blood, Arterial Line) 04/28/2023 1:47 PM DEPARTURE CLERK 04/28/2023 1:47 PM DEPARTURE CLERK Leandro Otoole M.D. LAB BLOOD NON AD D-ON Performing Organization Address City/[facility]/ZIP Co de Phone Number [facility] 200 [place] [address], [facility] ST[facility] 200 [place] [address] * Thromboelastograph, Kaolin, Blood (04/28/2023 1:46 PM DEPARTURE CLERK) R, Kaolin, TEG 4.6 4.0 - 9.0 min 04/28/2023 3:18 PM DEPARTURE CLERK [facility] K, Kaolin, TEG 1.0 1.0 - 1.8 min 04/28/2023 3:18 PM DEPARTURE CLERK [facility] Angle, Kaolin, TEG 75.6 64.0 - 78.1 degrees 04/28/2023 3:18 PM DEPARTURE CLERK [facility] MA, Kaolin, TEG 72.5 57.1 - 72.6 mm 04/28/2023 3:18 PM DEPARTURE CLERK [facility] Ly30, Kaolin, TEG 0.3 0.0 - 4.8 % 04/28/2023 3:18 PM DEPARTURE CLERK [facility] Blood (Blood, Arterial Line) 04/28/2023 1:46 PM DEPARTURE CLERK 04/28/2023 1:46 PM DEPARTURE CLERK Leandro Otoole M.D. LAB BLOOD NON AD D-ON [facility] 200 [place], [place] [address] 200 [place] [address] * Platelet Count (04/28/2023 1:46 PM DEPARTURE CLERK) Platelet Count 143 135 - 317 x10(9)/L 04/28/2023 1:53 PM DEPARTURE CLERK [facility] [[email or web address]A Blood (Blood, Arterial Line) 04/28/2023 1:46 PM DEPARTURE CLERK 04/28/2023 1:46 PM DEPARTURE CLERK Leandro Otoole M.D. LAB BLOOD ADD-ON Performing Organization Address City/[facility]/ZIP Co de Phone Number [facility] 200 [place], [place] [phone] [place] [address] 200 [place] [address] * (ABNORMAL) Hemoglobin (HGB), POCT (04/28/2023 1:39 PM DEPARTURE CLERK) Only the most recent of2 resultswithin the time period is included. Pathologist [facility] Hemoglobin, POCT, B 8.8(L) 13.2 - 16.6 g/dL 04/28/2023 1:45 PM DEPARTURE CLERK [facility] Blood 04/28/2023 1:39 PM DEPARTURE CLERK 04/28/2023 1:45 PM DEPARTURE CLERK Unknown Provider LAB POCT ORDERABLES - DEVICE Performing Organization Address City/[facility]/ZIP Co de Phone Number [facility] [address] [place], [place] [id number] [place] [address] [facility] [address] [place] [address] * (RAJINDER) - INTRAOPERATIVE WITH COLOR (PROBE NOT PLACED) (04/28/2023 1:30 PM DEPARTURE CLERK) Ejection Fraction CV EIMS Mid-Ascending Aorta 38 MC CV EIMS Wall Motion Score Index 1.31 CV EIMS Anatomical Region Laterality Modality Echocardiography 04/28/2023 6:42 AM DEPARTURE CLERK Impressions 04/28/2023 2:41 PM DEPARTURE CLERK PROCEDURE:Transesophageal echocardiogram performed at the request of the primary special service officer. Transesophageal echocardiogram completed without complications. PRE-BYPASS:Pre-bypass left ventricular ejection fraction 55%. Regional wall motion abnormalities were present (see wall motion graphics). Normal right ventricular systolic function. Trivial mitral valve regurgitation. Sclerotic aortic valve. Trileaflet aortic valve. Mild aortic valve regurgitation. Normal mid ascending aorta diameter of 38 mm. Normal tricuspid valve. Trivial tricuspid valve regurgitation. Pulmonary valve not well visualized. Trivial pulmonary valve regurgitation. Normal pulmonary veins. No left atrial appendage thrombus. No atrial level shunt by color flow imaging and agitated saline contrast injection. No atherosclerosis of the ascending aorta. No atherosclerosis of the aortic arch. Mild immobile (intimal thickening of 2-3 mm) atherosclerosis of the descending thoracic aorta. SURGERY:Status post coronary artery bypass graft(s). POST-BYPASS:Post-bypass left ventricular ejection fraction 55% -60%. Abnormal ventricular septal motion - post-operative. Regional wall motion findings similar to pre-bypass. Post-bypass: normal right ventricular systolic function. Intact ascending aorta post-decannulation. The remaining findings are unchanged from pre-bypass images. For the complete report, see the Order-Level Documents. Narrative 04/28/2023 2:41 PM DEPARTURE CLERK For the complete report, see the Order-Level Documents. Hemodynamics Heart Rate: 68 BPM Blood Pressure: 124 / 72 mmHg Final Impressions 1. PRE-BYPASS: 2. Pre-bypass left ventricular ejection fraction 55%. Normal right ventricular systolic function. 3. Sclerotic aortic valve (tricuspid) without stenosis. Mild aortic valve regurgitation. 4. Trivial mitral valve regurgitation. Trivial tricuspid valve regurgitation. 5. Intact atrial septum without atrial level shunt. 6. SURGERY: 7. Status post coronary artery bypass graft(s). 8. POST-BYPASS: 9. Post-bypass left ventricular ejection fraction 55% -60%, post-operative septal wall motion with otherwise unchanged regional wall motion abnormalities. 10. Post-bypass: normal right ventricular systolic function. 11. Intact ascending aorta post-decannulation. The remaining findings are unchanged from pre-bypass images. Procedure Note Kami Nazario M.D. - 04/28/2023 For the complete report, see the Order-Level Documents. Hemodynamics Heart Rate: 68 BPM Blood Pressure: 124 / 72 mmHg Final Impressions 1. PRE-BYPASS: 2. Pre-bypass left ventricular ejection fraction 55%. Normal rightventricular systolic function. 3. Sclerotic aortic valve (tricuspid) without stenosis. Mild aortic valveregurgitation. 4. Trivial mitral valve regurgitation. Trivial tricuspid valveregurgitation. 5. Intact atrial septum without atrial level shunt. 6. SURGERY: 7. Status post coronary artery bypass graft(s). 8. POST-BYPASS: 9. Post-bypass left ventricular ejection fraction 55% -60%, post-operativeseptal wall motion with otherwise unchanged regional wall motionabnormalities. 10. Post-bypass: normal right ventricular systolic function. 11. Intact ascending aorta post-decannulation. The remaining findings areunchanged from pre-bypass images. Findings PROCEDURE:Transesophageal echocardiogram performed at the request of theprimary special service officer. Transesophageal echocardiogram completedwithout complications. PRE-BYPASS:Pre-bypass left ventricular ejection fraction 55%. Regionalwall motion abnormalities were present (see wall motion graphics). Normalright ventricular systolic function. Trivial mitral valve regurgitation.Sclerotic aortic valve. Trileaflet aortic valve. Mild aortic valveregurgitation. Normal mid ascending aorta diameter of 38 mm. Normaltricuspid valve. Trivial tricuspid valve regurgitation. Pulmonary valvenot well visualized. Trivial pulmonary valve regurgitation. Normalpulmonary veins. No left atrial appendage thrombus. No atrial level shuntby color flow imaging and agitated saline contrast injection. Noatherosclerosis of the ascending aorta. No atherosclerosis of the aorticarch. Mild immobile (intimal thickening of 2-3 mm) atherosclerosis of thedescending thoracic aorta. SURGERY:Status post coronary artery bypass graft(s). POST-BYPASS:Post-bypass left ventricular ejection fraction 55% -60%.Abnormal ventricular septal motion - post-operative. Regional wall motionfindings similar to pre-bypass. Post-bypass: normal right ventricularsystolic function. Intact ascending aorta post-decannulation. Theremaining findings are unchanged from pre-bypass images. For the complete report, see the Order-Level Documents. Jc Pan M.D. CV ECHO PROCEDUR ES * ME US GUIDE VASC ACCESS, ME INS/PLC FLOW DIR CATH, MC ANE INVASIVE CATH WITH ULTRASOUND, LDA ANE PACATH, LDA ANE INTRODUCER ONLY, MC ANE CENTRAL LINE GENERIC PERFORMABLE (04/28/2023 8:05 AM DEPARTURE CLERK) Narrative Leandro Otoole M.D. - 04/28/2023 8:05 AM DEPARTURE CLERK Kyleigh Gutierrez APRN, CRNA ? 04/28/2023 ??8:16 AM Invasive Catheter Date/Time: 04/28/2023 8:05 AM Performed by: Vinay Little M.D. Authorized by: Leandro Otoole M.D. ?? Location: OR PROCEDURE DETAILS: Line type: central venous ?? Laterality: right Location: jugular internal Location details: new site ?? Additional catheter (i.e. multiple lines in same vessel): no ?? Patient position: Trendelenburg ?? Age group: adult Line Type: temporary (non-tunneled, non-implanted) Introducer: yes ?? Introducer size: 9 Fr Introducer insertion depth: other Catheter placed via introducer: pulmonary artery catheter ?? Lumen(s): double lumen Catheter diameter: 8 Fr Catheter insertion depth (cm): other Site the catheter was advanced to (this is the intended location and does not need to be proven by radiologic exam): pulmonary artery ?? Technique: ultrasound guided with RAJINDER confirmation of guidewire in right atrium prior to vessel dilation ?? Ultrasound guidance: image acquired and saved Ultrasound comment: ultrasound guidance used demonstrating vessel patency and cannulation of the vessel observed. ??Vessel transduced: no ?? Monitored (venous): yes Number of attempts: 1 UNIVERSAL PROTOCOL All relevant documentation and testing were reviewed and available. All required blood products, implants, devices and or special equipment were made available as applicable. Pre-procedure verification was conducted and the correct site was marked if required. A fire risk assessment was done as applicable. The procedural time-out to verify correct patient, correct side/site, and procedure was conducted prior to performing the procedure and confirmed in a procedural pause. PRE-PROCEDURE DETAILS: Appropriate hand hygiene, gown, cap, mask, protective eyewear, sterile gloves, skin preparation, sterile drape, and strict aseptic technique were utilized as applicable for the procedure.: yes ?? Skin preparation: chlorhexidine ?? SEDATION / ANESTHESIA Anesthesia method: none POST-PROCEDURE DETAILS: Procedure completed successfully: yes ?? Line secured: sutured Chlorhexidine disc around insertion site and under catheter with slight turn: yes ?? Notable Events: none ?? ATTESTATION STATEMENT A resident or fellow participated in the procedure, and the accounting consultant was present for the entire procedure. Leandro Otoole M.D. PROCEDURE/MINOR SURGICAL ORDERABLES * ME ECHO RAJINDER 2D PLC ONLY (04/28/2023 7:55 AM DEPARTURE CLERK) Narrative Kyleigh Gutierrez APRN, CRNA - 04/28/2023 7:55 AM DEPARTURE CLERK Kyleigh Gutierrez APRN, CRNA ? 04/28/2023 ??7:55 AM RAJINDER Date/Time: 04/28/2023 7:55 AM Performed by: Leandro Otoole M.D. Authorized by: Leandro Otoole M.D. ?? Location: OR PROCEDURE DETAILS: Indications: monitor ventricular function and placement/positioning of line or device Transesophageal type: placement of RAJINDER probe only Placement details: adult probe inserted without difficulty Notable Events: no complications Leandro Otoole M.D. ANESTHESIA ORDER GISSELLE * LDA ANE ENDOTRACHEAL AIRWAY (04/28/2023 7:49 AM DEPARTURE CLERK) Narrative Kyleigh Gutierrez APRN, CRNA - 04/28/2023 7:49 AM DEPARTURE CLERK Kyleigh Gutierrez APRN, CRNA ? 04/28/2023 10:14 AM Airway Date/Time: 04/28/2023 7:49 AM Performed by: Kyleigh Gutierrez APRN, CRNA Authorized by: Leandro Otoole M.D. ?? Patient location during procedure: OR / Procedure Area PROCEDURE DETAILS: Mask difficulty assessment: oral/nasal airway needed Final airway type: video laryngoscope Laryngeal Manipulation: no ?? Final best view of glottic structures - Cormack/Lehane Score: grade 2A ETT location: oral VL device: glide scope [place] scope blade size: 4 Tube size: 8 ETT distance at teeth/gum: 24 Oral tube type: standard ETT Cuffed: yes Number of attempt to successful placement: 1 Airway confirmation: bilateral breath sounds, positive ETCO2 and bilateral chest rise Other previous techniques attempted: direct laryngoscopy, intubation Number of other approaches attempted: 1 Previous direct laryngoscopy: best view of glottic structures: grade 2B PRE PROCEDURE DETAILS: Pre evaluation for airway management: procedure Urgency: elective Preop assessment of probable difficulty: questionable / suspicious difficult airway Preoxygenation: bag valve mask SEDATION / ANESTHESIA Anesthesia method: anesthesia POST PROCEDURE DETAILS: ? Procedure outcome: successful ?? Notable Events: no complications Leandro Otoole M.D. ANESTHESIA ORDER GISSELLE * ME ARTL CATH/CNULA MONITOR PERC, LDA ANE ARTERIAL LINE INSERTION (04/28/2023 7:41 AM DEPARTURE CLERK) Narrative Kyleigh Gutierrez APRN, TOOL AND DIE MAKER LEVEL FIVE - 04/28/2023 7:41 AM DEPARTURE CLERK Kyleigh Gutierrez APRN, CRNA ? 04/28/2023 ??7:41 AM Invasive Catheter Date/Time: 04/28/2023 7:41 AM Performed by: Vinay Little M.D. Authorized by: Leandro Otoole M.D. ?? Location: OR PROCEDURE DETAILS: Line type: arterial ?? Laterality: left Location: radial Location details: new site ? Age group: adult Catheter diameter: 20 Ga Technique: ultrasound guided ?? Monitored: yes ?? Number of attempts: 1 UNIVERSAL PROTOCOL All relevant documentation and testing were reviewed and available. All required blood products, implants, devices and or special equipment were made available as applicable. Pre-procedure verification was conducted and the correct site was marked if required. A fire risk assessment was done as applicable. The procedural time-out to verify correct patient, correct side/site, and procedure was conducted prior to performing the procedure and confirmed in a procedural pause. PRE-PROCEDURE DETAILS: Appropriate hand hygiene, gown, cap, mask, protective eyewear, sterile gloves, skin preparation, sterile drape, and strict aseptic technique were utilized as applicable for the procedure.: yes ?? Skin preparation: chlorhexidine ?? SEDATION / ANESTHESIA Anesthesia method: moderate sedation POST-PROCEDURE DETAILS: Procedure completed successfully: yes ?? Line secured: secured with sutureless device Chlorhexidine disc around insertion site and under catheter with slight turn: yes ?? Notable Events - arterial: none Leandro Otoole M.D. PROCEDURE/MINOR SURGICAL ORDERABLES * Non-Radiology Image-Anesthesiology Image Exam (04/28/2023 7:05 AM DEPARTURE CLERK) Only the most recent of2 resultswithin the time period is included. 04/28/2023 7:01 AM DEPARTURE CLERK Narrative [facility] - 04/28/2023 8:14 AM DEPARTURE CLERK This order has been created and auto-finalized to support the import of images acquired without order. The clinical documentation to support these images can be found on the encounter that produced images. Provider Not In System IMG NON RAD IMAGI NG PROCEDURES [facility] NA * Heparin Anti-Xa Assay (04/28/2023 6:40 AM DEPARTURE CLERK) Only the most recent of10 resultswithin the time period is included. Heparin Anti-Xa, P 0.51 IU/mL 2023 7:10 AM DEPARTURE CLERK DTL Comment: UFH therapeutic range: ?? 0.30-0.70 IU/mL LMWH therapeutic range: 0.50-1.00 IU/mL 0.50-1.00 IU/mL for twice daily dosing ?? 1.00-2.00 IU/mL for once daily dosing (sample obtained 4-6 hours following subcutaneous injection) LMWH prophylactic range:0.10-0.30 IU/mL ----ADDITIONAL INFORMATION---- Heparin Anti-Xa is used to measure heparin concentrations in patients receiving low molecular weight heparin (LMWH) or unfractionated heparin (UFH). Blood (Blood, Venous) 04/28/2023 6:40 AM DEPARTURE CLERK 04/28/2023 6:54 AM DEPARTURE CLERK Maria Antonia Rascon P.A.-C. LAB BLOOD NON A DD-ON Performing Organization Address City/[facility]/ZIP Co de Phone Number [facility] [address] [place] [address], [facility] DTL [facility] [address] [place] [address] * US Lower Extremity Veins Bilateral Mapping (04/26/2023 9:58 AM DEPARTURE CLERK) Anatomical Region Laterality Modality Lower Extremity, Ultrasound RST LOS, Ultrasound ARZ LOS, Ultrasound FLA LOS, Procedural, Vascular Interventional NWWI LOS Bilateral Ultrasound Impressions 04/26/2023 10:03 AM DEPARTURE CLERK The great saphenous vein is adequate for harvest from the saphenofemoral junction to the knee bilaterally. There are likely varicosities arising from the great saphenous vein at the level of the upper calf bilaterally. Sonographic vein mapping with measurements per full report. Narrative 04/26/2023 10:03 AM DEPARTURE CLERK EXAM: US LOWER EXTREMITY VEINS BILATERAL MAPPING Exam performed with color and spectral Doppler analysis. COMPARISON: FINDINGS: RIGHT Great Saphenous Vein Saphenofemoral Junction: 5.3 mm Upper Thigh: 6.4 mm Mid Thigh: 6.7 mm Lower Thigh: 5.5 mm Knee: 6.5 mm Upper Calf: 4.9 mm Mid Calf: 3.3 mm Lower Calf: 3.5 mm Ankle: 2.3 mm LEFT Great Saphenous Vein Saphenofemoral Junction: 8.6 mm Upper Thigh: 3.3 mm Mid Thigh: 3.6 mm Lower Thigh: 2.9 mm Knee: 2.8 mm Upper Calf: 3.3 mm Mid Calf: 2.2 mm Lower Calf: 2.1 mm Ankle: 2.2 mm Procedure Note Bryce Lema M.D. - 04/26/2023 EXAM: US LOWER EXTREMITY VEINS BILATERAL MAPPING Exam performed with color and spectral Doppler analysis. COMPARISON: FINDINGS: RIGHT Great Saphenous Vein Saphenofemoral Junction: 5.3 mm Upper Thigh: 6.4 mm Mid Thigh: 6.7 mm Lower Thigh: 5.5 mm Knee: 6.5 mm Upper Calf: 4.9 mm Mid Calf: 3.3 mm Lower Calf: 3.5 mm Ankle: 2.3 mm LEFT Great Saphenous Vein Saphenofemoral Junction: 8.6 mm Upper Thigh: 3.3 mm Mid Thigh: 3.6 mm Lower Thigh: 2.9 mm Knee: 2.8 mm Upper Calf: 3.3 mm Mid Calf: 2.2 mm Lower Calf: 2.1 mm Ankle: 2.2 mm IMPRESSION: The great saphenous vein is adequate for harvest from the saphenofemoraljunction to the knee bilaterally. There are likely varicosities arisingfrom the great saphenous vein at the level of the upper calf bilaterally.Sonographic vein mapping with measurements per full report. Maria Antonia Rascon P.A.-C. [facility] PROCEDUR ES * CORONARY ANGIOGRAPHY (04/25/2023 12:53 PM DEPARTURE CLERK) Anatomical Region Laterality Modality X-Ray Angiograph y 04/25/2023 12:3 0 PM DEPARTURE CLERK Narrative 04/25/2023 1:11 PM DEPARTURE CLERK For the complete report, see the Order-Level Documents. PROCEDURE TYPES 1. ??CORONARY ANGIOGRAPHY ?? FINAL DIAGNOSIS 1. ??Severe coronary artery atherosclerosis ?? 2. ??Intracoronary thrombus ?? 3. ??Coronary artery collateral circulation ?? PRE-PROCEDURE DIAGNOSIS 1. ??Non-ST Elevation Myocardial Infarction (HCC) ?? CORONARY DIAGNOSTIC SUMMARY Coronary artery dominance is right. ?? The left main coronary artery is 10% obstructed by a discrete lesion. ?? The proximal left anterior descending artery is 70% obstructed by a tubular lesion and 30% obstructed by a discrete lesion. ?? The distal left anterior descending artery distal segment is normal size, diseased. ?? The first diagonal branch is 70% obstructed by diffuse disease. The distal segment is normal size, diseased. ?? The distal circumflex artery is 90% obstructed by multiple discrete lesions. ?? The first obtuse marginal is 70% obstructed by a tubular lesion. The distal segment is normal size, diseased. ?? The third obtuse marginal distal segment is large size, diseased. ?? The proximal right coronary artery is 90% obstructed by a discrete lesion with intracoronary thrombus present. ?? The distal right coronary artery is 40% obstructed by a discrete lesion. ?? The right posterior descending artery distal segment is normal size, diseased. ?? The right posterolateral segment is 40% obstructed by a discrete lesion. The distal segment is normal size, diseased. ?? The second right posterolateral branch is 60% obstructed by a discrete lesion. The distal segment is normal size, diseased. ?? The anterior right ventricular artery receives collaterals from the distal left anterior descending artery and proximal right coronary artery. ?? RADIATION DOSE DATA Procedure cumulative skin dose (mGy): 657.74 Procedure cumulative dose area product (Gy-cm2): 36.44 Fluoro Time (Min): 2.62 CONTRAST DOSE DATA iohexoL 350 mg iodine/mL solution (OMNIPAQUE): 90mL For the complete report, see the Order-Level Documents. Procedure Note Siva Veliz M.D. - 04/25/2023 For the complete report, see the Order-Level Documents. PROCEDURE TYPES 1. CORONARY ANGIOGRAPHY FINAL DIAGNOSIS 1. Severe coronary artery atherosclerosis 2. Intracoronary thrombus 3. Coronary artery collateral circulation PRE-PROCEDURE DIAGNOSIS 1. Non-ST Elevation Myocardial Infarction (HCC) CORONARY DIAGNOSTIC SUMMARY Coronary artery dominance is right. The left main coronary artery is 10% obstructed by a discrete lesion. The proximal left anterior descending artery is 70% obstructed by atubular lesion and 30% obstructed by a discrete lesion. The distal left anterior descending artery distal segment is normal size,diseased. The first diagonal branch is 70% obstructed by diffuse disease. The distalsegment is normal size, diseased. The distal circumflex artery is 90% obstructed by multiple discretelesions. The first obtuse marginal is 70% obstructed by a tubular lesion. Thedistal segment is normal size, diseased. The third obtuse marginal distal segment is large size, diseased. The proximal right coronary artery is 90% obstructed by a discrete lesionwith intracoronary thrombus present. The distal right coronary artery is 40% obstructed by a discrete lesion. The right posterior descending artery distal segment is normal size,diseased. The right posterolateral segment is 40% obstructed by a discrete lesion.The distal segment is normal size, diseased. The second right posterolateral branch is 60% obstructed by a discretelesion. The distal segment is normal size, diseased. The anterior right ventricular artery receives collaterals from thedistal left anterior descending artery and proximal right coronary artery. RADIATION DOSE DATA Procedure cumulative skin dose (mGy): 657.74 Procedure cumulative dose area product (Gy-cm2): 36.44 Fluoro Time (Min): 2.62 CONTRAST DOSE DATA iohexoL 350 mg iodine/mL solution (OMNIPAQUE): 90mL For the complete report, see the Order-Level Documents. Prashant Nash APRN, C.N.P., D.N.P. CV CARDIAC CATH PROCEDURES * NT-Pro B-Type Natriuretic Peptide (BNP) (04/24/2023 5:44 AM DEPARTURE CLERK) Only the most recent of3 resultswithin the time period is included. NT-Pro BNP 483 <=540 pg/mL 04/24/2023 7:10 AM DEPARTURE CLERK DTL Comment: NT-proBNP values less than 300 pg/mL have a 99% negative predictive value for excluding acute congestive heart failure. A cutoff of 1200 pg/mL for patients with an eGFR<60 yields a diagnostic sensitivity and specificity of 89% and 72% for acute congestive heart failure. A diagnostic NT-proBNP cutoff of 900 pg/mL has been suggested in adults 50-75 years of age in the absence of renal failure. Blood (Blood, Venous) 04/24/2023 5:44 AM DEPARTURE CLERK 04/24/2023 6:33 AM DEPARTURE CLERK Elmer Leal APRNN.P., D.N.P. LAB BLOOD ADD-ON Performing Organization Address City/[facility]/ZIP Co de Phone Number [facility] [address] [place] [address], [facility] DTL [facility] [address] [place] [address] * (ABNORMAL) Troponin T, 5th Generation (04/24/2023 5:44 AM DEPARTURE CLERK) Only the most recent of6 resultswithin the time period is included. Pathologist [facility] Troponin T, 5th gen 364(H) <=15 ng/L 04/24/2023 6:15 AM DEPARTURE CLERK [facility] [[email or web address]]A Comment:Consider acute myoca rdial injury Blood (Blood, Venous) 04/24/2023 5:44 AM DEPARTURE CLERK 04/24/2023 5:58 AM DEPARTURE CLERK Garret Leal APRN.N.P., D.N.P. LAB BLOOD ADD-ON Performing Organization Address City/[facility]/ZIP Co de Phone Number [facility] [address] [place] [address], [place] ST[facility] [address] [place] [address] * Hemoglobin A1c (04/24/2023 5:44 AM DEPARTURE CLERK) Only the most recent of2 resultswithin the time period is included. Pathologist [facility] Hemoglobin A1c, B 5.4 4.0 - 5.6 % 04/24/2023 7:08 AM DEPARTURE CLERK DTL Blood (Blood, Venous) 04/24/2023 5:44 AM DEPARTURE CLERK 04/24/2023 6:11 AM DEPARTURE CLERK Prashant Nash APRN C.N.P., D.N.P. LAB BLOOD ADD-ON [facility] [address] [place] [address], [facility] [address] [place] [address] * (ABNORMAL) Comprehensive Metabolic Panel (04/24/2023 5:44 AM DEPARTURE CLERK) Only the most recent of6 resultswithin the time period is included. Pathologist [facility] Potassium, S 5.0 3.6 - 5.2 mmol/L 04/24/2023 7:10 AM DEPARTURE CLERK DTL Sodium, S 140 135 - 145 mmol/L 04/24/2023 7:10 AM DEPARTURE CLERK DTL Chloride, S 101 98 - 107 mmol/L 04/24/2023 7:10 AM DEPARTURE CLERK DTL Bicarbonate, S 27 22 - 29 mmol/L 04/24/2023 7:10 AM DEPARTURE CLERK DTL Anion Gap 12 7 - 15 04/24/2023 7:10 AM DEPARTURE CLERK DTL BUN (Blood Urea Nitrogen), S 12 8 - 24 mg/dL 04/24/2023 7:10 AM DEPARTURE CLERK DTL Creatinine 1.02 0.74 - 1.35 mg/dL 04/24/2023 7:10 AM DEPARTURE CLERK DTL Estimated GFR (eGFR) 80 >=60 mL/min/BS A 04/24/2023 7:10 AM DEPARTURE CLERK DTL Comment: Estimated GFR calculated using the 2020 CKD_EPI creatinine equation. Calcium, Total, S 9.8 8.8 - 10.2 mg/dL 04/24/2023 7:10 AM DEPARTURE CLERK DTL Glucose, S 123 70 - 140 mg/dL 04/24/2023 7:10 AM DEPARTURE CLERK DTL Protein, Total, S 6.7 6.3 - 7.9 g/dL 04/24/2023 7:10 AM DEPARTURE CLERK DTL Albumin, S 4.3 3.5 - 5.0 g/dL 04/24/2023 7:10 AM DEPARTURE CLERK DTL Aspartate Aminotransferase (AST), S 74(H) 8 - 48 U/L 04/24/2023 7:10 AM DEPARTURE CLERK DTL Alkaline Phosphatase, S 133(H) 40 - 129 U/L 04/24/2023 7:10 AM DEPARTURE CLERK DTL Alanine Aminotransferase (ALT), S 82(H) 7 - 55 U/L 04/24/2023 7:10 AM DEPARTURE CLERK DTL Bilirubin, Total, S 0.7 0.0 - 1.2 mg/dL 04/24/2023 7:10 AM DEPARTURE CLERK DTL Blood (Blood, Venous) 04/24/2023 5:44 AM DEPARTURE CLERK 04/24/2023 6:33 AM DEPARTURE CLERK Prashant Nash APRN, C.N.P., D.N.P. LAB BLOOD ADD-ON [address] [address], [facility] [place] [place] [address] * (TTE) 2D ECHO DOPPLER COLOR AND CONTRAST (04/23/2023 1:22 PM DEPARTURE CLERK) Ejection Fraction 55 MC CV EIMS Mid-Ascending Aorta 39 MC CV EIMS Wall Motion Score Index 1.31 MC CV EIMS LV Mass Index 83 MC CV EIMS LV End-Diastolic Diameter 45 MC CV EIMS LV End-Systolic Diameter 32 MC CV EIMS MV E Velocity 0.5 MC CV EIMS MV A Velocity 0.7 MC CV EIMS MV E/A 0.71 MC CV EIMS MV e' Velocity Medial 0.05 MC CV EIMS MV e' Velocity Lateral 0.07 MC CV EIMS MV E/e' Medial 10 MC CV EIMS MV E/e' Lateral 7.1 MC CV EIMS Left ventricular stroke volume index 38 MC CV EIMS Cardiac Output 6.13 MC CV EIMS Cardiac Index 2.93 MC CV EIMS LV Interventricular Septal Wall Thickness 12 MC CV EIMS LV Posterior Wall Thickness 10 MC CV EIMS LV Relative Wall Thickness 44 MC CV EIMS Tricuspid Annular S? 0.13 MC CV EIMS TR Vmax 2.2 MC CV EIMS RA Pressure 5 MC CV EIMS RV Systolic Pressure 24 MC CV EIMS AV mean gradient 3 MC CV EIMS Aortic valve area 4.07 MC CV EIMS Aortic Valve Dimensionless Index 0.83 MC CV EIMS LA Volume Index 32 MC CV EIMS Aortic Valve Systolic Peak Velocity 1 MC CV EIMS Anatomical Region Laterality Modality Echocardiography 04/23/2023 11:5 4 AM DEPARTURE CLERK Impressions 04/23/2023 3:39 PM DEPARTURE CLERK LEFT VENTRICLE:Normal left ventricular chamber size. Sigmoid ventricular septum with basal septal prominence: 15 mm Calculated 2-D linear left ventricular ejection fraction 55%. Grade 1/3 left ventricular diastolic dysfunction, consistent with low to normal left ventricular filling pressure at rest. RIGHT VENTRICLE:Normal right ventricular chamber size. Normal right ventricular systolic function. Estimated right ventricular systolic pressure 24 mmHg (right atrial pressure of 5 mmHg). ATRIA:Normal left atrial size. Left atrial volume index 32 ml/m2. Normal right atrial size by visual estimate. CARDIAC VALVES:Mildly thickened aortic valve. Trivial aortic valve regurgitation. Mildly thickened mitral valve. Trivial mitral valve regurgitation. Normal pulmonary valve. Trivial pulmonary valve regurgitation. Normal tricuspid valve. Trivial tricuspid valve regurgitation. OTHER ECHO FINDINGS:Normal inferior vena cava size with normal inspiratory collapse (>50%). Abdominal aorta incompletely visualized. Normal abdominal aorta Doppler flow pattern. Lipomatous atrial septum. No atrial level shunt by color flow imaging. No intracardiac mass or thrombus, but the left atrial appendage cannot be visualized adequately with transthoracic echo to exclude thrombus in this location. No ??pericardial effusion. Intravenous Definity ultrasound enhancement agent(s) administered to enhance endocardial border definition. Attempts were made to optimize the echocardiographic images and two or more left ventricular segments were not visualized adequately to evaluate cardiac structure. The patient's current allergies and medications have been screened. Imaging enhancement agent administered per Echocardiography Contrast Administration Protocol Reference Document [id number] Rev 07/23/2021. Patient met an inclusion criterion and did not have contraindications in screening sections. For the complete report, see the Order-Level Documents. Narrative 04/23/2023 3:39 PM DEPARTURE CLERK For the complete report, see the Order-Level Documents. Hemodynamics Heart Rate: 73 BPM Blood Pressure: 120 / 82 mmHg ECG: Sinus rhythm Final Impressions 1. Normal left ventricular chamber size. Calculated 2D linear left ventricular ejection fraction 55%. 2. Regional wall motion abnormalities were present (see wall motion graphics). 3. Grade 1/3 left ventricular diastolic dysfunction, consistent with low to normal left ventricular filling pressure at rest. 4. Normal right ventricular chamber size ??with normal systolic function. 5. Trileaflet aortic valve. No Doppler evidence of aortic stenosis. ??Trivial aortic regurgitation. 6. Estimated right ventricular systolic pressure 24 mmHg (right atrial pressure of 5 mmHg). 7. Normal inferior vena cava size with normal inspiratory collapse (>50%). 8. Normal mid ascending aorta diameter of 39 mm. 9. No ??pericardial effusion. 10. Compared to the report of 04/20/2018 the following changes have occurred: ??regional wall motion abnormalities are now present. ??Side by side comparison of images performed. Procedure Note Walter Caal M.D. - 04/23/2023 For the complete report, see the Order-Level Documents. Hemodynamics Heart Rate: 73 BPM Blood Pressure: 120 / 82 mmHg ECG: Sinus rhythm Final Impressions 1. Normal left ventricular chamber size. Calculated 2D linear leftventricular ejection fraction 55%. 2. Regional wall motion abnormalities were present (see wall motiongraphics). 3. Grade 1/3 left ventricular diastolic dysfunction, consistent with lowto normal left ventricular filling pressure at rest. 4. Normal right ventricular chamber size with normal systolic function. 5. Trileaflet aortic valve. No Doppler evidence of aortic stenosis.Trivial aortic regurgitation. 6. Estimated right ventricular systolic pressure 24 mmHg (right atrialpressure of 5 mmHg). 7. Normal inferior vena cava size with normal inspiratory collapse(>50%). 8. Normal mid ascending aorta diameter of 39 mm. 9. No pericardial effusion. 10. Compared to the report of 04/20/2018 the following changes haveoccurred: regional wall motion abnormalities are now present. Side byside comparison of images performed. Findings LEFT VENTRICLE:Normal left ventricular chamber size. Sigmoid ventricularseptum with basal septal prominence: 15 mm Calculated 2-D linear leftventricular ejection fraction 55%. Grade 1/3 left ventricular diastolicdysfunction, consistent with low to normal left ventricular fillingpressure at rest. RIGHT VENTRICLE:Normal right ventricular chamber size. Normal rightventricular systolic function. Estimated right ventricular systolicpressure 24 mmHg (right atrial pressure of 5 mmHg). ATRIA:Normal left atrial size. Left atrial volume index 32 ml/m2. Normalright atrial size by visual estimate. CARDIAC VALVES:Mildly thickened aortic valve. Trivial aortic valveregurgitation. Mildly thickened mitral valve. Trivial mitral valveregurgitation. Normal pulmonary valve. Trivial pulmonary valveregurgitation. Normal tricuspid valve. Trivial tricuspid valveregurgitation. OTHER ECHO FINDINGS:Normal inferior vena cava size with normal inspiratorycollapse (>50%). Abdominal aorta incompletely visualized. Normal abdominalaorta Doppler flow pattern. Lipomatous atrial septum. No atrial levelshunt by color flow imaging. No intracardiac mass or thrombus, but theleft atrial appendage cannot be visualized adequately with transthoracicecho to exclude thrombus in this location. No pericardial effusion.Intravenous Definity ultrasound enhancement agent(s) administered toenhance endocardial border definition. Attempts were made to optimize theechocardiographic images and two or more left ventricular segments werenot visualized adequately to evaluate cardiac structure. The patient'scurrent allergies and medications have been screened. Imaging enhancementagent administered per Echocardiography Contrast Administration ProtocolReference Document [id number] Rev 07/23/2021. Patient met an inclusioncriterion and did not have contraindications in screening sections. For the complete report, see the Order-Level Documents. Prashant Nash APRN, C.N.P., D.N.P. CV ECHO PROCEDURES * CT Chest Angiogram and Pulmonary Arteries with IV Contrast (04/23/2023 8:18 AM DEPARTURE CLERK) Anatomical Region Laterality Modality Chest, Cardiovascular RST LO S, Thoracic ARZ LOS, Thoracic FLA LOS N/A Computed Tomography 04/23/2023 8:14 AM DEPARTURE CLERK Impressions 04/23/2023 8:29 AM DEPARTURE CLERK - Negative for acute pulmonary embolism. -No acute lung disease. Narrative 04/23/2023 8:29 AM DEPARTURE CLERK EXAM: CT CHEST ANGIOGRAM AND PULMONARY ARTERIES WITH IV CONTRAST Including 3D image postprocessing with or without AI assistance. COMPARISON: CT chest, 06/25/2015. FINDINGS: CT Angiogram Chest: Lungs and large airways: No lung consolidation. Mild dependent bibasal atelectasis. Unchanged 6 mm right lung base solid nodule (series 5 image 275). Pleura/diaphragm: Unremarkable Pulmonary arteries: No evidence of acute pulmonary emboli. Thoracic aorta: Motion degradation the ascending thoracic aorta. Mild atherosclerotic calcification of the thoracic aorta. Heart and pericardium: Unremarkable Mediastinum and ruth: Unremarkable Upper abdomen: Postcholecystectomy clips in the gallbladder fossa Chest wall/lower neck: Unremarkable Bones: Chronic degenerative changes in the spine. Procedure Note Primitivo Simeon M.B., Trino, MToña - 04/23/2023 EXAM: CT CHEST ANGIOGRAM AND PULMONARY ARTERIES WITH IV CONTRAST Including 3D image postprocessing with or without AI assistance. COMPARISON: CT chest, 06/25/2015. FINDINGS: CT Angiogram Chest: Lungs and large airways: No lung consolidation. Mild dependent bibasalatelectasis. Unchanged 6 mm right lung base solid nodule (series 5 [id number]). Pleura/diaphragm: Unremarkable Pulmonary arteries: No evidence of acute pulmonary emboli. Thoracic aorta: Motion degradation the ascending thoracic aorta. Mildatherosclerotic calcification of the thoracic aorta. Heart and pericardium: Unremarkable Mediastinum and ruth: Unremarkable Upper abdomen: Postcholecystectomy clips in the gallbladder fossa Chest wall/lower neck: Unremarkable Bones: Chronic degenerative changes in the spine. IMPRESSION: - Negative for acute pulmonary embolism. -No acute lung disease. Jayce Almonte APRN C.N.P., M.S.N. IMG CT P ROCEDURES * Critical Care (04/23/2023 8:03 AM DEPARTURE CLERK) Narrative Jayce Almonte APRN, C.N.P., M.S.N. - 04/23/2023 8:03 AM DEPARTURE CLERK Jayce Almonte APRN C.N.P., M.S.N. ? 04/23/2023 ??8:04 AM Critical Care Performed by: Jayce Almonte APRN, C.N.P., M.S.N. Authorized by: Jayce Almonte APRN, C.N.Shefali, M.S.N. ?? Critical care provider statement: Critical care total time (minutes): 60 Critical care time was exclusive of: separately billable procedures and treating other patients CPR was performed on this patient: no ?? Critical care was necessary to treat or prevent imminent or life-threatening deterioration of the following conditions: cardiac arrhythmia (NSTEMI) Critical care was time spent personally by me on the following activities: obtaining history from patient or surrogate, review of old charts, re-evaluation of patient's condition, pulse oximetry, ordering and review of radiographic studies, ordering and review of laboratory studies, ordering and performing treatments and interventions, examination of patient, evaluation of patient's response to treatment, development of treatment plan with patient or surrogate and documenting in the patient chart I assumed direction of critical care for this patient from another provider in my specialty: yes ?? Garret Dodson APRN.NBee, M.S.N. PROCEDUR E/MINOR SURGICAL ORDERABLES * (ABNORMAL) Troponin T, 2h/6h, 5th Gen (04/22/2023 7:19 PM DEPARTURE CLERK) Troponin T, 2 hr, 5th gen 396(H) <=15 ng/L 04/22/2023 7:44 PM DEPARTURE CLERK CNFL Comment:Consider acute myoca rdial injury 2H Delta % 5 % 04/22/2023 7:44 PM DEPARTURE CLERK CNFL 2H Delta Interp Not Changing 04/22/2023 7:44 PM DEPARTURE CLERK CNFL Troponin T, 6 hr, 5th gen 401(H) <=15 ng/L 04/22/2023 11:53 PM DEPARTURE CLERK CNFL Comment:Consider acute myoca rdial injury 6H Delta % 6 % 04/22/2023 11:53 PM DEPARTURE CLERK CNFL 6H Delta Interp Not Changing 04/22/2023 11:53 PM DEPARTURE CLERK CNFL Blood (Blood, Venous) 04/22/2023 7:19 PM DEPARTURE CLERK 04/22/2023 7:23 PM DEPARTURE CLERK Narrative [facility] - 04/22/2023 11:53 PM DEPARTURE CLERK Specimen Information: Specimen ID: [id number] Specimen Type: Blood Specimen Collection Start Date: 04/22/2023 ??7:19 PM Specimen Received Date: 04/22/2023 ??7:23 PM Specimen ID: [id number] Specimen Type: Blood Specimen Collection Start Date: 04/22/2023 11:31 PM Specimen Received Date: 04/22/2023 11:33 PM Elmer Younger APRNN.PShubham [place] [address], [place] [address] * (ABNORMAL) Troponin T, Baseline, 5th gen (04/22/2023 5:05 PM DEPARTURE CLERK) Troponin T, Baseline, 5th gen 377(H) <=15 ng/L 04/22/2023 6:10 PM DEPARTURE CLERK [place] Comment:Consider acute myoca rdial injury Blood (Blood, Venous) 04/22/2023 5:05 PM DEPARTURE CLERK 04/22/2023 5:26 PM DEPARTURE CLERK Garret Younger APRN.N.PShubham LAB BLOO D TROPONIN Performing Organization Address City/[facility]/ZIP Co de Phone Number [phone], [place] [address] * CBC with Differential, Blood (04/22/2023 5:05 PM DEPARTURE CLERK) Only the most recent of12 resultswithin the time period is included. Hemoglobin 14.9 13.2 - 16.6 g/dL 04/22/2023 5:55 PM DEPARTURE CLERK CNFL Hematocrit 43.1 38.3 - 48.6 % 04/22/2023 5:55 PM DEPARTURE CLERK CNFL Erythrocytes 4.55 4.35 - 5.65 x10(12)/L 04/22/2023 5:55 PM DEPARTURE CLERK CNFL MCV 94.7 78.2 - 97.9 fL 04/22/2023 5:55 PM DEPARTURE CLERK CNFL RBC Distrib Width 12.5 11.8 - 14.5 % 04/22/2023 5:55 PM DEPARTURE CLERK CNFL Platelet Count 237 135 - 317 x10(9)/L 04/22/2023 5:55 PM DEPARTURE CLERK CNFL Leukocytes 6.8 3.4 - 9.6 x10(9)/L 04/22/2023 5:55 PM DEPARTURE CLERK CNFL Neutrophils 3.90 1.56 - 6.45 x10(9)/L 04/22/2023 5:55 PM DEPARTURE CLERK CNFL Lymphocytes 2.07 0.95 - 3.07 x10(9)/L 04/22/2023 5:55 PM DEPARTURE CLERK CNFL Monocytes 0.75 0.26 - 0.81 x10(9)/L 04/22/2023 5:55 PM DEPARTURE CLERK CNFL Eosinophils <0.04 0.03 - 0.48 x10(9)/L 04/22/2023 5:55 PM DEPARTURE CLERK CNFL Basophils <0.04 0.01 - 0.08 x10(9)/L 04/22/2023 5:55 PM DEPARTURE CLERK CNFL Blood (Blood, Venous) 04/22/2023 5:05 PM DEPARTURE CLERK 04/22/2023 5:26 PM DEPARTURE CLERK Layla Salmeron APRN C.N.P. LAB BLOO D ADD-ON [facility] [address] [place] [address], [facility] in [address] [address] * SARS Coronavirus-2 RNA, V Symptomatic (07/27/2020 8:11 AM CDT) SARS-CoV-2 Specimen Source Swab, Nasopharynx 07/27/2020 8:06 PM CDT ECLR SARS CoV-2 RNA, TMA Undetected Undetected 07/27/2020 8:06 PM CDT ECLR Comment: SARS-CoV-2 RNA absent. This result does not rule out COVID-19 in the patient, as the sensitivity of the test depends on the timing of the specimen collection and the quality of the specimen. Result should be correlated with patient's history and clinical presentation. ----ADDITIONAL INFORMATION---- This molecular amplification test was performed using the Aptima SARS-CoV-2 assay ([employer] on the [employer] System under emergency use authorization (EUA) by the U.S. Food and Drug Administration. Fact sheets for this EUA assay can be found at the following links: For Healthcare Providers: https://www.fda.gov/media/043043/download For Patients: https://www.fda.gov/media/213897/download Varies (Nasopharynx) 07/27/2020 8:11 AM CDT 07/27/2020 3:18 PM CDT Sen Soto P.A.-C., P.A. LAB MICR OBIOLOGY - GENERAL ORDERABLES [facility] [address] [place] [address] ECLR [facility] [place] [address] * Colonoscopy-Gastroenterology Image Exam (06/04/2019 8:40 AM DEPARTURE CLERK) Only the most recent of4 resultswithin the time period is included. 06/04/2019 8:36 AM DEPARTURE CLERK Narrative [facility] - 06/04/2019 9:14 AM DEPARTURE CLERK This order has been created and auto-finalized to support the import of images acquired without order. The clinical documentation to support these images can be found on the encounter that produced images. Provider Not In System IMG NON RAD IMAGI NG PROCEDURES [facility] NA * COLONOSCOPY (06/04/2019 8:36 AM DEPARTURE CLERK) Narrative Procedure Note Timothy Kaba M.D. - 06/04/2019 8:36 AM CST [facility] Patient Name: Arthur Arambula Procedure Date: [...] bowel preparation was evaluated using the BBPS (Watkins Bowel Preparation Scale) with scores of: Right [...] Kaba M.D. GI PROCEDURE ORDER GISSELLE * Surgical Pathology (06/04/2019 8:31 AM DEPARTURE CLERK) Only the most recent of3 resultswithin the time period is included. 06/05/2019 11:28 AM DEPARTURE CLERK ECLR Report electronically signed by Michael Whitehead M.D. 06/05/2019 11:28 AM DEPARTURE CLERK ECLR Specimen Received A. ??Lower third esophagus biopsy, known Mccormack's B. ??Cecum polyp C. ??Splenic flexure polyp 06/05/2019 11:28 AM DEPARTURE CLERK ECLR Clinical History Mccormack's esophagus, hematochezia 06/05/2019 11:28 AM DEPARTURE CLERK ECLR Gross Description A) ?? Received in a container labeled A-lower third esophagus are three, 0.2-0.3 cm in greatest dimensions portions of tissue. ??The entire specimen is submitted in one cassette. B) ??Received in a container labeled B-cecum is a 0.4 cm in greatest dimensions portion of tissue. ??The entire specimen is submitted in one cassette. C) ??Received in a container labeled C-splenic flexure are three, 0.7-0.8 cm in greatest dimensions portions of tissue. ??The entire specimen is submitted in one cassette. KP/ps 06/05/2019 11:28 AM DEPARTURE CLERK ECLR Interpretation FINAL DIAGNOSIS A. Esophagus, lower 3rd, biopsy: ??Specialized Mccormack's mucosa. ??Negative for dysplasia. B. Colon, cecum, biopsy: ??Tubular adenoma. C. Colon, splenic flexure, biopsy: ??Hyperplastic polyp. 06/05/2019 11:28 AM DEPARTURE CLERK ECLR Biopsy (Esophagus) 06/04/2019 8:31 AM DEPARTURE CLERK Comment:Lower Esophagus Polyp (Colon) 06/04/2019 8:4 4 AM DEPARTURE CLERK Polyp (Colon) 06/04/2019 8:4 9 AM DEPARTURE CLERK Timothy Kaba M.D. LAB SURG PATH [facility] [address] [place] [address], [facility] ECLR [facility] [place] [address] * UPPER GI ENDOSCOPY (06/04/2019 8:25 AM DEPARTURE CLERK) Narrative Procedure Note Timothy Kaba M.D. - 06/04/2019 8:25 AM CST [facility] Patient Name: Arthur Arambula Procedure Date: 06/04/2019 8:25 AM Date of : 1955 Age: 64 Gender: Male Procedure: Upper GI endoscopy Providers: Timothy Zarco (Ordering Provider) Referring Provider: Timothy Kaba Pre-op Diagnoses: Follow-up of Mccormack's esophagus Post-op Diagnoses: - Esophageal mucosal changes classified as Mccormack's stage C0-M2 per Ransom criteria. Biopsied. - Normal stomach. - Normal examined duodenum. Recommendation: - Repeat upper endoscopy in 5 years for surveillance. Findings: The esophagus and gastroesophageal junction were examined with white light and narrow band imaging (NBI) from a forward view andretroflexed position. There were esophageal mucosal changes classified asBarrett's stage C0-M2 per Ransom criteria. These changes involved the mucosa at the upper extent of the gastric folds (40 cm from the incisors) extending to the Z-line (38 cm from the incisors). No visible abnormalities were present. The maximum longitudinal extent of these esophageal mucosal changes was 2 cm in length. Mucosa was biopsiedwith a cold forceps for histology in a targeted manner from 38 to 40 cmfrom the incisors. One specimen bottle was sent to pathology. The exam of the esophagus was otherwise normal. The stomach was normal. The examined duodenum was normal. Medicines: Versed 4 mg IV, Fentanyl 100 micrograms IV and Lidocaine gargle 20mL Complications: No immediate complications. Estimated blood loss: [...] and oxygen saturations were monitored continuously. The Endoscope was introduced under direct vision through the mouth, and advanced to the secondpart of duodenum. The upper GI endoscopy wasaccomplished with ease. The patient tolerated the procedurewell. Sedation: See colonoscopy report. Timothy Kaba, 06/04/2019 8:37:29 AM This report has been signed electronically. Number of Addenda: 0 Note Initiated On: 06/04/2019 7:53 AM Timothy Kaba M.D. GI PROCEDURE ORDER GISSELLE * (TTE) 2D ECHO DOPPLER COLOR (04/20/2018 8:34 AM DEPARTURE CLERK) Ejection Fraction 62 MC CV EIMS Mid-Ascending Aorta 40 MC CV EIMS LV Mass Index 96 MC CV EIMS LV End-Diastolic Diameter 48 MC CV EIMS LV End-Systolic Diameter 33 MC CV EIMS LV End-Diastolic Volume 106 MC CV EIMS LV End-Systolic Volume 40 MC CV EIMS MV E Velocity 0.4 MC CV EIMS MV A Velocity 0.7 MC CV EIMS MV E/A 0.57 MC CV EIMS Left ventricular stroke volume index 37 MC CV EIMS Cardiac Output 6.13 MC CV EIMS Cardiac Index 2.86 MC CV EIMS LV Interventricular Septal Wall Thickness 11 MC CV EIMS LV Posterior Wall Thickness 12 MC CV EIMS LV Relative Wall Thickness 50 MC CV EIMS Tricuspid Annular S? 0.13 MC CV EIMS RA Pressure 5 MC CV EIMS AV mean gradient 2 MC CV EIMS Aortic valve area 4.00 MC CV EIMS Aortic Valve Dimensionless Index 0.88 MC CV EIMS LA Volume Index 26 MC CV EIMS Anatomical Region Laterality Modality Echocardiography 04/20/2018 8:04 AM DEPARTURE CLERK Narrative 04/20/2018 8:11 PM DEPARTURE CLERK See PDF For Result Procedure Note Melecio Rodriguez M.D. - 04/20/2018 See PDF For Result Malissa Zuñiga C.N.P. CV ECHO PROCED URES * DX Shoulder 2+ Views (05/17/2016 8:30 AM DEPARTURE CLERK) Only the most recent of5 resultswithin the time period is included. Anatomical Region Laterality Modality Upper Extremity, Shoulder N/A Radiog raphic Imaging 05/17/2016 8:30 AM DEPARTURE CLERK Impressions 05/17/2016 8:31 AM DEPARTURE CLERK Left TSA. No radiographic evidence of loosening. Subacromial narrowing could be seen with rotator cuff disease. 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 Electronically signed by: ?? Murtaza Cyr ?? [phone] 17-May-2016 08:31 Narrative 05/17/2016 8:31 AM DEPARTURE CLERK 17-May-2016 08:30:00 ??Exam: L Shoulder 2 or 3vw w/Axillary Indications: Arthroplasty Total Shoulder Replacement (TSA) S/P L ORIGINAL REPORT - 17-May-2016 08:31:00 EXAM: Left Shoulder 2 or 3vw w/Axillary: Procedure Note Seth Cyr M.D. - 07/06/2017 17-May-2016 08:30:00 Exam: L Shoulder 2 or 3vw w/Axillary Indications: Arthroplasty Total Shoulder Replacement (TSA) S/P L ORIGINAL REPORT - 17-May-2016 08:31:00 EXAM: Left Shoulder 2 or 3vw w/Axillary: IMPRESSION: Left TSA. No radiographic evidence of loosening. Subacromialnarrowing could be seen with rotator cuff disease. Mild degenerativearthritis involving the AC joint. Electronically signed by: Murtaza Cyr MD [id number] 17-May-2016 08:31 Rachel Carter P.A.-C., M.S. IMG DIAGN OSTIC IMAGING PROCEDURES * PHYSICAL MEDICINE AND REHAB IMAGE EXAM (02/12/2016 9:24 AM CDT) Anatomical Region Laterality Modality Other 02/12/2016 9:24 AM CDT Addenda Addendum by Provider, Margarito Sam on 02/12/2016 9:24 AM CDT PMR^^^MCR MSK 02/12/2016 09:24:29 Historical Provider IMG NON RAD IMAGING PROCEDURES * CT Upper Extremity without IV Contrast (11/07/2015 7:50 AM CDT) Anatomical Region Laterality Modality Upper Extremity Computed Tomogra phy 11/07/2015 7:50 AM CDT Impressions 11/07/2015 8:37 AM CDT 1. Small bone fragments inferomedial to the humeral head, likely a result of age-indeterminate avulsion fracture of the lesser tuberosity. 2. Suggestion of minimal osteolysis about the glenoid component pegs. 3. Rotator cuff arthropathy. 4. A 2-mm solid pulmonary nodule is not significantly change since chest CT 06/25/2015. Additional 6 x 4 mm irregular nodular opacity only visible on the last image of the series is not definitely a nodule, and may simply represent partially visualized pericardial fat. Assessment of nodules was more complete on the above chest CT. FINDINGS: Postoperative changes of a left total shoulder arthroplasty. Cortical irregularity and subtle areas of cortical discontinuity involving the anterior humeral cortex about the proximal stem of the humeral component (series 8, image 41 and 42). Avulsed fracture fragment inferomedial to the humeral head (series 3, image 132). Additional heterotopic ossification in this same area. Constellation of findings suggestive of age-indeterminate avulsion fracture of the lesser tuberosity. Small area of lucency about one of the glenoid component pegs (series 6, image 35) may be due to minimal osteolysis. Narrowing of the subacromial interval to a minimum of 5 mm (series 6, image 34), with superior subluxation of the humeral head relative to the glenoid, consistent with rotator cuff arthropathy. Mild degenerative changes of the acromioclavicular joint with subchondral cystic change of the clavicular head. Partially visualized 6 x 4 mm irregular nodularity in the left upper lobe anteriorly (series 4, image 336) is not definitely a discrete nodule and may simply represent partially visualized pericardial fat. Additional tiny 2 mm nodule in the left upper lobe periphery (series 4, image 253) was present on chest CT 06/25/2015. Electronically signed by: ?? Jennyfer Mann MD. [phone] 07-Nov-2015 08:37 ?Jennyfer Johnson MD [phone] 07-Nov-2015 08:37 Narrative 11/07/2015 8:37 AM CDT 07-Nov-2015 07:50:00 ??Exam: L CT EXT UPPER wo Indications: Arthroplasty Total Shoulder Replacement (TSA) S/P L ORIGINAL REPORT - 07-Nov-2015 08:37:00 EXAM: CT EXT UPPER wo LEFT (accession [id number]), 3D rendering with interpretation and reporting of CT requiring an independent workstation (accession [id number]) COMPARISON: ??Prior shoulder radiographs, most recently 11/03/2015. Chest CT 06/25/2015. Procedure Note Juanito Mann M.D. - 07/07/2017 07-Nov-2015 07:50:00 Exam: L CT EXT UPPER wo Indications: Arthroplasty Total Shoulder Replacement (TSA) S/P L ORIGINAL REPORT - 07-Nov-2015 08:37:00 EXAM: CT EXT UPPER wo LEFT (accession [id number]), 3D rendering withinterpretation and reporting of CT requiring an independent workstation(accession [id number]) COMPARISON: Prior shoulder radiographs, most recently 11/03/2015. ChestCT 06/25/2015. IMPRESSION: 1. Small bone fragments inferomedial to the humeral head, likely a resultof age-indeterminate avulsion fracture of the lesser tuberosity. 2. Suggestion of minimal osteolysis about the glenoid component pegs. 3. Rotator cuff arthropathy. 4. A 2-mm solid pulmonary nodule is not significantly change since chestCT 06/25/2015. Additional 6 x 4 mm irregular nodular opacity only visibleon the last image of the series is not definitely a nodule, and may simplyrepresent partially visualized pericardial fat. Assessment of nodules wasmore complete on the above chest CT. FINDINGS: Postoperative changes of a left total shoulder arthroplasty. Corticalirregularity and subtle areas of cortical discontinuity involving theanterior humeral cortex about the proximal stem of the humeral component(series 8, image 41 and 42). Avulsed fracture fragment inferomedial to thehumeral head (series 3, image 132). Additional heterotopic ossification inthis same area. Constellation of findings suggestive of age-indeterminateavulsion fracture of the lesser tuberosity. Small area of lucency about one of the glenoid component pegs (series 6,image 35) may be due to minimal osteolysis. Narrowing of the subacromialinterval to a minimum of 5 mm (series 6, image 34), with superiorsubluxation of the humeral head relative to the glenoid, consistent withrotator cuff arthropathy. Mild degenerative changes of theacromioclavicular joint with subchondral cystic change of the clavicularhead. Partially visualized 6 x 4 mm irregular nodularity in the left upper lobeanteriorly (series 4, image 336) is not definitely a discrete nodule andmay simply represent partially visualized pericardial fat. Additional tiny2 mm nodule in the left upper lobe periphery (series 4, image 253) waspresent on chest CT 06/25/2015. Electronically signed by: Jennyfer Mann MD. [phone] 07-Nov-2015 08:37 Jennyfer Johnson MD [phone] 08:37 Dash Roberts II, M.D. Jc CT PROCEDU RES * CT 3D Requiring Independent Workstation (11/07/2015 7:36 AM CDT) Anatomical Region Laterality Modality Abdomen, Pelvis Computed Tomogra phy 11/07/2015 7:36 AM CDT Impressions 11/07/2015 8:37 AM CDT 1. Small bone fragments inferomedial to the humeral head, likely a result of age-indeterminate avulsion fracture of the lesser tuberosity. 2. Suggestion of minimal osteolysis about the glenoid component pegs. 3. Rotator cuff arthropathy. 4. A 2-mm solid pulmonary nodule is not significantly change since chest CT 06/25/2015. Additional 6 x 4 mm irregular nodular opacity only visible on the last image of the series is not definitely a nodule, and may simply represent partially visualized pericardial fat. Assessment of nodules was more complete on the above chest CT. FINDINGS: Postoperative changes of a left total shoulder arthroplasty. Cortical irregularity and subtle areas of cortical discontinuity involving the anterior humeral cortex about the proximal stem of the humeral component (series 8, image 41 and 42). Avulsed fracture fragment inferomedial to the humeral head (series 3, image 132). Additional heterotopic ossification in this same area. Constellation of findings suggestive of age-indeterminate avulsion fracture of the lesser tuberosity. Small area of lucency about one of the glenoid component pegs (series 6, image 35) may be due to minimal osteolysis. Narrowing of the subacromial interval to a minimum of 5 mm (series 6, image 34), with superior subluxation of the humeral head relative to the glenoid, consistent with rotator cuff arthropathy. Mild degenerative changes of the acromioclavicular joint with subchondral cystic change of the clavicular head. Partially visualized 6 x 4 mm irregular nodularity in the left upper lobe anteriorly (series 4, image 336) is not definitely a discrete nodule and may simply represent partially visualized pericardial fat. Additional tiny 2 mm nodule in the left upper lobe periphery (series 4, image 253) was present on chest CT 06/25/2015. Electronically signed by: ?? Jennyfer Mann MD. [phone] 07-Nov-2015 08:37 ?Jennyfer Johnson MD [phone] 07-Nov-2015 08:37 Narrative 11/07/2015 8:37 AM CDT 07-Nov-2015 07:36:00 ??Exam: 3D Requiring independent WS Indications: Arthroplasty Total Shoulder Replacement (TSA) S/P L ORIGINAL REPORT - 07-Nov-2015 08:37:00 EXAM: CT EXT UPPER wo LEFT (accession [id number]), 3D rendering with interpretation and reporting of CT requiring an independent workstation (accession [id number]) COMPARISON: ??Prior shoulder radiographs, most recently 11/03/2015. Chest CT 06/25/2015. Procedure Note Juanito Mann M.D. - 07/07/2017 07-Nov-2015 07:36:00 Exam: 3D Requiring independent WS Indications: Arthroplasty Total Shoulder Replacement (TSA) S/P L ORIGINAL REPORT - 07-Nov-2015 08:37:00 EXAM: CT EXT UPPER wo LEFT (accession [id number]), 3D rendering withinterpretation and reporting of CT requiring an independent workstation(accession [id number]) COMPARISON: Prior shoulder radiographs, most recently 11/03/2015. ChestCT 06/25/2015. IMPRESSION: 1. Small bone fragments inferomedial to the humeral head, likely a resultof age-indeterminate avulsion fracture of the lesser tuberosity. 2. Suggestion of minimal osteolysis about the glenoid component pegs. 3. Rotator cuff arthropathy. 4. A 2-mm solid pulmonary nodule is not significantly change since chestCT 06/25/2015. Additional 6 x 4 mm irregular nodular opacity only visibleon the last image of the series is not definitely a nodule, and may simplyrepresent partially visualized pericardial fat. Assessment of nodules wasmore complete on the above chest CT. FINDINGS: Postoperative changes of a left total shoulder arthroplasty. Corticalirregularity and subtle areas of cortical discontinuity involving theanterior humeral cortex about the proximal stem of the humeral component(series 8, image 41 and 42). Avulsed fracture fragment inferomedial to thehumeral head (series 3, image 132). Additional heterotopic ossification inthis same area. Constellation of findings suggestive of age-indeterminateavulsion fracture of the lesser tuberosity. Small area of lucency about one of the glenoid component pegs (series 6,image 35) may be due to minimal osteolysis. Narrowing of the subacromialinterval to a minimum of 5 mm (series 6, image 34), with superiorsubluxation of the humeral head relative to the glenoid, consistent withrotator cuff arthropathy. Mild degenerative changes of theacromioclavicular joint with subchondral cystic change of the clavicularhead. Partially visualized 6 x 4 mm irregular nodularity in the left upper lobeanteriorly (series 4, image 336) is not definitely a discrete nodule andmay simply represent partially visualized pericardial fat. Additional tiny2 mm nodule in the left upper lobe periphery (series 4, image 253) waspresent on chest CT 06/25/2015. Electronically signed by: Jennyfer Mann MD. [id number] 07-Nov-2015 08:37 Jennyfer Johnson MD [phone] 08:37 Dash Roberts II, M.D. [facility] [place] * CT Abdomen Pelvis with IV Contrast (06/25/2015 6:25 AM CDT) Only the most recent of2 resultswithin the time period is included. Anatomical Region Laterality Modality Abdomen, Pelvis N/A [...] Electronically signed by: ?? Sonya Simons MD [phone] 25-Jun-2015 06:50 I have reviewed the films/images and agree with the above interpretation. Electronically signed by: ?? Papa Brewster MD [phone] 25-Jun-2015 10:15 Narrative 06/25/2015 10:15 AM CDT 25-Jun-2015 06:25:00 ??Exam: CT ABDOMEN w & PELVIS w Indications: PE protocol. ??midepigastric, retrosternal pain. ??elevated ddimer and LFTs; PE, pancreatic etiology ORIGINAL REPORT - 25-Jun-2015 06:50:00 EXAM: CT scan of the Chest with IV contrast ??(accession [id number]), CT scan of the Abdomen and Pelvis with IV contrast ??(accession [id number]) COMPARISON: ??[facility] CT 06/02/2015 Procedure Note Ton Brewster M.D. - 07/07/2017 25-Jun-2015 06:25:00 Exam: CT ABDOMEN w & PELVIS w Indications: PE protocol. midepigastric, retrosternal pain. elevatedddimer and LFTs; PE, pancreatic etiology ORIGINAL REPORT - 25-Jun-2015 06:50:00 EXAM: CT scan of the Chest with IV contrast (accession [id number]), CTscan of the Abdomen and Pelvis with IV contrast (accession [id number]) COMPARISON: [facility] CT 06/02/2015 IMPRESSION: 1. Negative for acute [...] pelvis. Electronically signed by: Sonya Simons MD [phone] 25-Jun-2015 06:50 I have reviewed the films/images and agree with the above interpretation. Electronically signed by: Papa Brewster MD [phone] 25-Jun-2015 10:15 Felicitas Moran P.A.-C. IMG CT PROCEDURES * CT Chest with IV Contrast (06/25/2015 6:25 AM CDT) Only the most recent of2 resultswithin the time period is included. Anatomical Region Laterality Modality Chest N/A Computed Tomogra phy 06/25/2015 6:25 AM [...] Electronically signed by: ?? Sonya Simons MD [phone] 25-Jun-2015 06:50 I have reviewed the films/images and agree with the above interpretation. Electronically signed by: ?? Papa Brewster MD [phone] 25-Jun-2015 10:15 Narrative 06/25/2015 10:15 AM CDT 25-Jun-2015 06:25:00 ??Exam: CT CHEST w Indications: PE protocol. ??midepigastric, retrosternal pain. ??elevated ddimer and LFTs; PE, pancreatic etiology ORIGINAL REPORT - 25-Jun-2015 06:50:00 EXAM: CT scan of the Chest with IV contrast ??(accession [id number]), CT scan of the Abdomen and Pelvis with IV contrast ??(accession [id number]) COMPARISON: ??[facility] CT 06/02/2015 Procedure Note Ton Brewster M.D. - 07/07/2017 25-Jun-2015 06:25:00 Exam: CT CHEST w Indications: PE protocol. midepigastric, retrosternal pain. elevatedddimer and LFTs; PE, pancreatic etiology ORIGINAL REPORT - 25-Jun-2015 06:50:00 EXAM: CT scan of the Chest with IV contrast (accession [id number]), CTscan of the Abdomen and Pelvis with IV contrast (accession [id number]) COMPARISON: [facility] CT 06/02/2015 IMPRESSION: 1. Negative for acute [...] is also benign and unchanged since 04/11/09 (/204).Several prominent mediastinal axillary lymph nodes may be [...] pelvis. Electronically signed by: Sonya Simons MD [phone] 25-Jun-2015 06:50 I have reviewed the films/images and agree with the above interpretation. Electronically signed by: Papa Brewster MD [phone] 25-Jun-2015 10:15 Felicitas Moran P.A.-C. IMG CT PROCEDURES * Automated Differential (06/25/2015 4:45 AM CDT) Only the most recent of10 resultswithin the time period is included. Absolute Neutrophils 3.68 1.70 - 7.00 109L POWERCHART Lymphocytes 1.15 0.90 - 2.90 X109L POWERCHART Monocytes 0.60 0.30 - 0.90 X109L POWERCHART Eosinophils 0.09 0.05 - 0.50 X109L POWERCHART Absolute Basophil 0.03 0.00 - 0.30 X109L POWERCHART Blood 06/25/2015 4:45 AM CDT 06/25/2015 4:45 AM CDT Felicitas Moran P.A.-C. LAB BLOOD ADD-ON POWERCHART * CK (Creatine Kinase) (06/25/2015 4:45 AM CDT) Creatine Kinase (CK), S 52 21 - 232 UL POWERCHART Blood 06/25/2015 4:45 AM CDT Felicitas Moran P.A.-C. LAB BLOOD ADD-ON POWERCHART * (ABNORMAL) D-Dimer (06/25/2015 4:45 AM CDT) Only the most recent of3 resultswithin the time period is included. D-Dimer, P 2.14(H) 0.00 - 0.50 MCGMLFEU POWERCHART Comment: Results of this test should always be interpreted in conjunction with the patient's medical history, clinical presentation and other findings. DVT and PE clinical diagnosis should not be based on the D-Dimer result alone. The measurement of D-Dimer should not be used as an aid in the diagnosis of VTE, in patients with: -Therapeutic dose anticoagulant therapy for >24 hours -Fibrinolytic therapy within previous 7 days -Trauma or surgery within previous 4 weeks -Disseminated malignancies -Aortic aneurysm -Sepsis, severe infections, pneumonia, severe skin infections -Liver cirrhosis - Blood 06/25/2015 4:45 AM CDT Felicitas Moran P.A.-C. LAB BLOOD ADD-ON Performing Organization Address [facility] de Phone Number POWERCHART * Lipase (06/25/2015 4:45 AM CDT) Only the most recent of2 resultswithin the time period is included. Lipase, S 64.2 10.0 - 73.0 UL POWERCHART Blood 06/25/2015 4:45 AM CDT Felicitas Moran P.A.-C. LAB BLOOD ADD-ON Performing Organization Address [facility] de Phone Number POWERCHART * Amylase, Total (06/25/2015 4:45 AM CDT) Only the most recent of2 resultswithin the time period is included. Amylase, Total, S 74 25 - 115 UL POWERCHART Blood 06/25/2015 4:45 AM CDT Felicitas Moran P.A.-C. LAB BLOOD ADD-ON Performing Organization Address [facility] Co de Phone Number POWERCHART * HX-Enteric Path Rslt (06/24/2015 8:00 AM CDT) Enteric Pathogens Culture, Stool See Comment POWERCHART 06/24/2015 8:00 AM CDT Narrative POWERCHART - 06/28/2015 12:02 PM CDT SOURCE: STOOL ENTERIC PATHOGENS CULTURE, STOOL ? FINAL AEROMONAS sp If susceptibilities desired, call Ext. [phone] No growth of Salmonella, Shigella, Yersinia, or Campylobacter. Test Performed by: [place] [address] Family Partner: Timothy Gamez II, M.D., Ph.D. Tiago Yanez D.O. LAB HISTORICAL OR DERS Performing Organization Address [facility] Co de Phone Number POWERCHART * HX-C diff Srce (06/24/2015 8:00 AM CDT) HXC diff Srce-[place] STOOL POWERCHART 06/24/2015 8:00 AM CDT Tiago Yanez D.O. LAB HISTORICAL OR DERS Performing Organization Address [facility] Co de Phone Number POWERCHART * C. difficile Toxin, F (06/24/2015 8:00 AM CDT) C. difficile Toxin, F Positive POWERCHART 06/24/2015 8:00 AM CDT Narrative POWERCHART - 06/25/2015 2:26 PM CDT Semi-Urgent Result. ADDITIONAL INFORMATION Laboratory developed test. Test Performed by: [address] [address] Family Partner: Timothy Gamez II, M.D., Ph.D. Tiago Yanez D.O. LAB MICROBIOLOGY - GENERAL ORDERABLES Performing Organization Address [facility] de Phone Number POWERCHART * Bacterial Culture, Blood (06/05/2015 7:07 AM DEPARTURE CLERK) Only the most recent of2 resultswithin the time period is included. Bacteria/Milagro da Culture, Blood POWERCHART HXPre No growth at 24 hours. POWERCHART HXPre No growth at 48 hours. POWERCHART HXPre No growth at 3 days. POWERCHART HXPre No growth at 4 days. POWERCHART HXFinal No growth at 5 days. POWERCHART Blood (Arm, Left) 06/05/2015 7:07 AM DEPARTURE CLERK Tiago Yanez D.O. LAB MICROBIOLOGY - GENERAL ORDERABLES Performing Organization Address [facility] de Phone Number POWERCHART * FL Fluoro Less Than 1 Hour (06/04/2015 6:37 PM DEPARTURE CLERK) Only the most recent of2 resultswithin the time period is included. Anatomical Region Laterality Modality Radiographic Penny ging 06/04/2015 6:37 PM DEPARTURE CLERK Impressions 06/05/2015 7:34 AM DEPARTURE CLERK Image intensifier used. Image(s) acquired. Electronically signed by: ?? Jennyfer Marshall MD [phone] 04-Jun-2015 18:53 I have reviewed the films/images and agree with the above interpretation. Electronically signed by: ?? Elmer Dominguez MD 05-Jun-2015 07:34 Narrative 06/05/2015 7:34 AM DEPARTURE CLERK 04-Jun-2015 18:37:00 ??Exam: Fluoro Assistance less < 1hr Indications: cholangiogram ORIGINAL REPORT - 04-Jun-2015 18:53:00 EXAM: Fluoro Assistance less < 1hr: Procedure Note Demetrius Dominguez M.D. - 07/07/2017 04-Jun-2015 18:37:00 Exam: Fluoro Assistance less < 1hr Indications: cholangiogram ORIGINAL REPORT - 04-Jun-2015 18:53:00 EXAM: Fluoro Assistance less < 1hr: IMPRESSION: Image intensifier used. Image(s) acquired. Electronically signed by: Jennyfer Marshall MD [phone] 04-Jun-2015 18:53 I have reviewed the films/images and agree with the above interpretation. Electronically signed by: Elmer Dominguez MD 05-Jun-2015 07:34 Tiago Yanez D.O. IMG FLUOROSCOPY P ROCEDURES * CT Head without IV Contrast (06/03/2015 3:19 PM DEPARTURE CLERK) Only the most recent of3 resultswithin the time period is included. Anatomical Region Laterality Modality Head N/A Computed Tomogra phy 06/03/2015 3:19 PM DEPARTURE CLERK Impressions 06/03/2015 3:45 PM DEPARTURE CLERK No acute intracranial findings. FINDINGS: Right frontal and pterional craniotomies with cranioplasty mesh. Aneurysm coils near the falx cerebri and an aneurysm clip is seen near the right anterior clinoid process. Stable focal encephalomalacia of the anterior right paramedian frontal lobe. No acute hemorrhage or infarct. No ventriculomegaly. No substantial cerebral volume loss. Extracranial soft tissue structures have a normal appearance. Electronically signed by: ?? Silvestre Duckworth MD [phone] 03-Jun-2015 15:45 ?Scott Chavez MD [phone] 03-Jun-2015 15:45 Narrative 06/03/2015 3:45 PM DEPARTURE CLERK 03-Jun-2015 15:19:00 ??Exam: CT Head wo Indications: Headache, fever, ??Distant history of Subarachnoid bleed ORIGINAL REPORT - 03-Jun-2015 15:45:00 EXAM: ??CT scan of the Head without IV contrast COMPARISON: ? CT head dated 06/26/2013. Procedure Note Vasu Chavez M.D. - 07/07/2017 03-Jun-2015 15:19:00 Exam: CT Head wo Indications: Headache, fever, Distant history of Subarachnoid bleed ORIGINAL REPORT - 03-Jun-2015 15:45:00 EXAM: CT scan of the Head without IV contrast COMPARISON: CT head dated 06/26/2013. IMPRESSION: No acute intracranial findings. FINDINGS: Right frontal and pterional craniotomies with cranioplasty mesh. Aneurysmcoils near the falx cerebri and an aneurysm clip is seen near the rightanterior clinoid process. Stable focal encephalomalacia of the anteriorright paramedian frontal lobe. No acute hemorrhage or infarct. Noventriculomegaly. No substantial cerebral volume loss. Extracranial softtissue structures have a normal appearance. Electronically signed by: Silvestre Duckworth MD [phone] 03-Jun-2015 15:45 Scott Chavez MD [phone] 15:45 Cameron Julien M.D. IMG CT PROCEDURES * US Abdomen Limited (06/02/2015 2:47 PM DEPARTURE CLERK) Anatomical Region Laterality Modality Abdomen N/A Ultrasound 06/02/2015 2:47 PM DEPARTURE CLERK Impressions 06/02/2015 2:57 PM DEPARTURE CLERK Cholelithiasis and gallbladder wall thickening. HISTORY: Epigastric pain, concern for acute cholecystitis. FINDINGS: Gallbladder: Mobile gallstone noted. ??Vertebral gallbladder wall thickening and edema measures 0.4 cm. ??Small pericholecystic fluid. ??Negative sonographic Black's sign. ??Findings are nonspecific but can be seen with acute cholecystitis, congestive heart failure, hepatitis amongst other things. Biliary system: Common duct measures 3 mm. Liver: Diffusely hyperechoic consistent with hepatic steatosis. Pancreas: Normal as visible. Aorta/IVC: Normal. Electronically signed by: ?? Aruna Shay MD 02-Jun-2015 14:57 Narrative 06/02/2015 2:57 PM DEPARTURE CLERK 02-Jun-2015 14:47:00 ??Exam: US Abdomen Limited Indications: epigastric pain , concern of acute cholecystitis ORIGINAL REPORT - 02-Jun-2015 14:57:00 PROCEDURE: ??US Abdomen Limited COMPARISON: CT earlier today. Procedure Note Wei Shay M.D. - 07/07/2017 02-Jun-2015 14:47:00 Exam: US Abdomen Limited Indications: epigastric pain , concern of acute cholecystitis ORIGINAL REPORT - 02-Jun-2015 14:57:00 PROCEDURE: US Abdomen Limited COMPARISON: CT earlier today. IMPRESSION: Cholelithiasis and gallbladder wall thickening. HISTORY: Epigastric pain, concern for acute cholecystitis. FINDINGS: Gallbladder: Mobile gallstone noted. Vertebral gallbladder wallthickening and edema measures 0.4 cm. Small pericholecystic fluid.Negative sonographic Black's sign. Findings are nonspecific but can beseen with acute cholecystitis, congestive heart failure, hepatitis amongstother things. Biliary system: Common duct measures 3 mm. Liver: Diffusely hyperechoic consistent with hepatic steatosis. Pancreas: Normal as visible. Aorta/IVC: Normal. Electronically signed by: Aruna Shay MD 02-Jun-2015 14:57 Samuel Cota M.D. IMG US PROCEDURES * Urinalysis, Complete, Includes Microscopic (06/02/2015 11:49 AM DEPARTURE CLERK) Clarity Clear Clear POWERCHART HXUr Color Yellow Colorless POWERCHART Specific [place], POCT, U 1.020 POWERCHART pH, POCT, Urine 7.5 <5.0 POWERCHART Protein, Ur, Dip Negative Negative MGDL POWERCHART Glucose Negative Negative MGDL POWERCHART Ketones, QL(U) Negative Negative MGDL POWERCHART HXBILIRUBIN Negative Negative POWERCHART HXBLOOD Negative Negative POWERCHART Leukocyte Esterase Negative Negative POWERCHART HXNITRITE Negative Negative POWERCHART Urobilinogen 0.2 0.2 MGDL POWERCHART HXUR WBC. Occ-3 None Seen HPF POWERCHART HXUR RBC. None Seen None Seen HPF POWERCHART Urine, First Voided 06/02/2015 11:49 AM DEPARTURE CLERK Samuel Cota M.D. LAB URINE ORDERAB LES POWERCHART * CRP (C-Reactive Protein) (06/02/2015 11:45 AM DEPARTURE CLERK) C-Reactive Protein (CRP), S 4.1 <=5.0 MGL POWERCHART Blood 06/02/2015 11:4 5 AM DEPARTURE CLERK Samuel Cota M.D. LAB BLOOD ADD-ON POWERCHART * Thyroid-Stimulating Hormone-Sensitive (s-TSH) (06/02/2015 11:45 AM DEPARTURE CLERK) TSH (Thyrotropin) 2.33 0.27 - 4.20 MIUL POWERCHART Blood 06/02/2015 11:4 5 AM DEPARTURE CLERK Samuel Cota M.D. LAB BLOOD ADD-ON POWERCHART * ABORh, RBC (04/23/2015 12:16 PM DEPARTURE CLERK) Only the most recent of2 resultswithin the time period is included. HXABO/RH BLOOD TYPE A Pos [facility] 04/23/2015 12:1 6 PM DEPARTURE CLERK Historical Provider LAB BLOOD BANK TEST ORDERABLES Performing Organization Address City/[facility]/ZIP Co de Phone Number [facility] [address] * Antibody Screen, RBC (04/23/2015 12:16 PM DEPARTURE CLERK) Only the most recent of2 resultswithin the time period is included. Antibody Screen Negative [facility] 04/23/2015 12:1 6 PM DEPARTURE CLERK Historical Provider LAB BLOOD BANK TEST ORDERABLES Performing Organization Address City/[facility]/ZIP Co de Phone Number [address] * Creatinine with Estimated GFR (MDRD) (04/23/2015 10:06 AM DEPARTURE CLERK) Creatinine 0.9 0.8 - 1.3 MG/DL [facility] eGFR Non-Black/Afric an Burmese >60 >60 ML/MIN/BSA [facility] eGFR-Black/Afri can Burmese >60 >60 ML/MIN/BSA [facility] 04/23/2015 10:0 6 AM DEPARTURE CLERK 04/23/2015 10:06 AM DEPARTURE CLERK Kingsley Candelaria P.A.-C. LAB BLOOD ADD-O N [address] * Outside MR MSK (01/21/2015 8:28 AM CDT) 01/21/2015 8:28 AM CDT Addenda Addendum by ProviderFlaco M.D. on 01/21/2015 8:28 AM CDT ODM^^^MCR SHOULDER^LEFT 01/21/2015 08:28:58 Historical Provider IMG MRI PROCEDURES Performing Organization Address City/[facility]/ZIP Co de Phone Number [facility] [address] [place] [address] * Outside DX Chest (12/13/2014 12:08 PM CDT) Only the most recent of4 resultswithin the time period is included. 12/13/2014 12:0 8 PM CDT Addenda Addendum by Flaco Mckeon M.D. on 12/13/2014 12:08 PM CDT ODM^^^MCR CHEST 12/13/2014 12:08:33 Historical Provider IMG DIAGNOSTIC IMAGI NG PROCEDURES Performing Organization Address City/[facility]/ZIP Co de Phone Number [facility] [address] [place] [address] * ECHOCARDIOLOGY IMAGE EXAM (10/26/2013 8:56 AM CDT) Anatomical Region Laterality Modality Other 10/26/2013 8:56 AM CDT Addenda Addendum by Flaco Mckeon M.D. on 10/26/2013 8:56 AM CDT ECHO^^^MCR NA 10/26/2013 08:56:32 Historical Provider IMG NON RAD IMAGING PROCEDURES * Echo Stress (10/26/2013 8:45 AM CDT) Anatomical Region Laterality Modality Echocardiography 10/26/2013 8:45 AM CDT Eleni Milner M.D. CV ECHO PROCEDURES * ALT (Alanine Aminotransferase) (05/10/2013 8:00 AM DEPARTURE CLERK) Only the most recent of4 resultswithin the time period is included. Alanine Amniotransferas e, LD 32 15 - 37 UL POWERCHART Blood 05/10/2013 8:00 AM DEPARTURE CLERK Marielena Leon M.D. LAB BLOOD ADD-ON POWERCHART * Sedimentation Rate (04/14/2012 11:12 AM DEPARTURE CLERK) Sedimentation Rate, B 9 0 - 20 MMHR POWERCHART Blood 04/14/2012 11:1 2 AM DEPARTURE CLERK Marielena Leon M.D. LAB BLOOD ADD-ON POWERCHART * MR Brain without and with IV Contrast (01/12/2012 7:00 PM CDT) Anatomical Region Laterality Modality Head, Brain N/A Magnetic Resonan ce 01/12/2012 7:00 PM CDT Narrative 01/13/2012 12:33 PM CDT 12-Jan-2012 19:00:00 ??Exam: MRI Hd wo&w Indications: RECURRENT HEADACHES , h/O cerebral aneurysms ORIGINAL REPORT - 13-Jan-2012 12:33:00 EXAM: MR Angiography Head without IV contrast: EXAM: MRI Brain without and with IV contrast: COMPARISON: No prior MRIs available for comparison. Exam read in conjunction with prior head CT 01/11/2008. ?? FINDINGS: There are 2 intracranial aneurysm clips, one at the frontal midline in the region of anterior cerebral arteries and the second at the right paraclinoid region. There has been extensive right frontotemporal craniotomy with right cranioplasty. Diffusion weighted imaging demonstrate no evidence of acute/subacute infarct. Minimal leukoaraiosis. 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 No abnormal intracranial contrast enhancement. Small lipoma at interpeduncular cistern. MRA images degraded by aneurysm clips. Within these limitations, mild atherosclerotic narrowing at the left carotid siphon. Large patent left posterior communicating artery. No definite intracranial aneurysm allowing for susceptibility artifact. The left A1 segment is somewhat small likely on a congenital basis. Both vertebral arteries supply the basilar artery. ?? [id number] Electronically signed by: ?? Derek Ray MD [phone] 13-Jan-2012 12:33 Procedure Note Denny Ray Jr., M.D., Ph.D. - 07/09/2017 12-Jan-2012 19:00:00 Exam: MRI Hd wo&w Indications: RECURRENT HEADACHES , h/O cerebral aneurysms ORIGINAL REPORT - 13-Jan-2012 12:33:00 EXAM: MR Angiography Head without IV contrast: EXAM: MRI Brain without and with IV contrast: COMPARISON: No prior MRIs available for comparison. Exam read inconjunction with prior head CT 01/11/2008. FINDINGS: There are 2 intracranial aneurysm clips, one at the frontalmidline in the region of anterior cerebral arteries and the second at theright paraclinoid region. There has been extensive right frontotemporalcraniotomy with right cranioplasty. Diffusion weighted imaging demonstrateno evidence of acute/subacute infarct. Minimal leukoaraiosis. Smallchronic infarcts at superior midline right frontal lobe. No abnormalintracranial contrast enhancement. Small lipoma at interpeduncularcistern. MRA images degraded by aneurysm clips. Within these limitations, mildatherosclerotic narrowing at the left carotid siphon. Large patent leftposterior communicating artery. No definite intracranial aneurysm allowingfor susceptibility artifact. The left A1 segment is somewhat small likelyon a congenital basis. Both vertebral arteries supply the basilar artery. [id number] Electronically signed by: Derek Ray MD [phone] 13-Jan-2012 12:33 Samuel HUERTAS MRI PROCEDURE S * MR Brain Angiogram without IV Contrast (01/12/2012 7:00 PM CDT) Anatomical Region Laterality Modality Head, Brain N/A Magnetic Resonan ce 01/12/2012 7:00 PM CDT Narrative 01/13/2012 12:33 PM CDT 12-Jan-2012 19:00:00 ??Exam: MRA/v Hd wo Indications: RECURRENT HEADACHES , h/O cerebral aneurysms ORIGINAL REPORT - 13-Jan-2012 12:33:00 EXAM: MR Angiography Head without IV contrast: EXAM: MRI Brain without and with IV contrast: COMPARISON: No prior MRIs available for comparison. Exam read in conjunction with prior head CT 01/11/2008. ?? FINDINGS: There are 2 intracranial aneurysm clips, one at the frontal midline in the region of anterior cerebral arteries and the second at the right paraclinoid region. There has been extensive right frontotemporal craniotomy with right cranioplasty. Diffusion weighted imaging demonstrate no evidence of acute/subacute infarct. Minimal leukoaraiosis. 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 No abnormal intracranial contrast enhancement. Small lipoma at interpeduncular cistern. MRA images degraded by aneurysm clips. Within these limitations, mild atherosclerotic narrowing at the left carotid siphon. Large patent left posterior communicating artery. No definite intracranial aneurysm allowing for susceptibility artifact. The left A1 segment is somewhat small likely on a congenital basis. Both vertebral arteries supply the basilar artery. ?? [id number] Electronically signed by: ?? Derek Ray MD [phone] 13-Jan-2012 12:33 Procedure Note Denny Ray Jr., M.D., Ph.D. - 07/09/2017 12-Jan-2012 19:00:00 Exam: MRA/v Hd wo Indications: RECURRENT HEADACHES , h/O cerebral aneurysms ORIGINAL REPORT - 13-Jan-2012 12:33:00 EXAM: MR Angiography Head without IV contrast: EXAM: MRI Brain without and with IV contrast: COMPARISON: No prior MRIs available for comparison. Exam read inconjunction with prior head CT 01/11/2008. FINDINGS: There are 2 intracranial aneurysm clips, one at the frontalmidline in the region of anterior cerebral arteries and the second at theright paraclinoid region. There has been extensive right frontotemporalcraniotomy with right cranioplasty. Diffusion weighted imaging demonstrateno evidence of acute/subacute infarct. Minimal leukoaraiosis. Smallchronic infarcts at superior midline right frontal lobe. No abnormalintracranial contrast enhancement. Small lipoma at interpeduncularcistern. MRA images degraded by aneurysm clips. Within these limitations, mildatherosclerotic narrowing at the left carotid siphon. Large patent leftposterior communicating artery. No definite intracranial aneurysm allowingfor susceptibility artifact. The left A1 segment is somewhat small likelyon a congenital basis. Both vertebral arteries supply the basilar artery. [id number] Electronically signed by: Derek Ray MD [phone] 13-Jan-2012 12:33 Samuel Cota M.D. IMJc MRI PROCEDURE S * Elbow, 1-2vws (02/19/2011 9:16 AM DEPARTURE CLERK) Anatomical Region Laterality Modality Elbow N/A Radiographic Penny ging 02/19/2011 9:16 AM DEPARTURE CLERK Narrative 02/19/2011 9:40 AM DEPARTURE CLERK 19-Feb-2011 09:16:00 ??Exam: R Elbow 2vw AP/Lat Indications: Pain; Dr. 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 Right elbow otherwise negative. Electronically signed by: ?? Papa Vigil MD. ??[phone] 19-Feb-2011 09:40 Procedure Note Paulino Vigil M.D. - 07/09/2017 19-Feb-2011 09:16:00 Exam: R Elbow 2vw AP/Lat Indications: Pain; Dr. 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 Right elbowotherwise negative. Electronically signed by: Papa Vigil MD. [phone] 19-Feb-2011 09:40 Marielena HUERTAS DIAGNOSTIC IMAGI NG PROCEDURES * Hips, 3-4 vws (06/03/2010 8:12 AM DEPARTURE CLERK) Only the most recent of2 resultswithin the time period is included. Anatomical Region Laterality Modality Hip N/A Radiographic Penny ging 06/03/2010 8:12 AM DEPARTURE CLERK Narrative 06/03/2010 8:17 AM DEPARTURE CLERK 03-Jun-2010 08:12:00 ??Exam: L Hip 4vw XAVI Series Post Op Indications: hip arthroplasty total s/p ORIGINAL REPORT - 03-Jun-2010 08:17:00 Left Hip 4vw XAVI Series Post Op: Left XAVI. No radiographic evidence of loosening. Right XAVI. Hypertrophic changes both SI joints and lower lumbar spine. Osteopenia. Electronically signed by: ?? Papa Holt MD. ??[phone] 03-Jun-2010 08:17 Procedure Note Faiza Holt M.D. - 07/09/2017 03-Jun-2010 08:12:00 Exam: L Hip 4vw XAVI Series Post Op Indications: hip arthroplasty total s/p ORIGINAL REPORT - 03-Jun-2010 08:17:00 Left Hip 4vw XAVI Series Post Op: Left XAVI. No radiographic evidence of loosening. Right XAVI. Hypertrophicchanges both SI joints and lower lumbar spine. Osteopenia. Electronically signed by: Papa Holt MD. [phone] 03-Jun-2010 08:17 Denny HUERTAS DIAGNOSTIC I MAGING PROCEDURES * MR Lower Extremity (05/26/2010 9:59 AM DEPARTURE CLERK) Only the most recent of2 resultswithin the time period is included. Anatomical Region Laterality Modality Lower Extremity Magnetic Resonan ce 05/26/2010 9:59 AM DEPARTURE CLERK Narrative 05/26/2010 1:54 PM DEPARTURE CLERK 26-May-2010 09:59:00 ??Exam: L MRI LE JOINT wo Indications: Left knee pain, suspect internal derangement, Dr. Jericho Ervin, , phone # [phone], no compares, [facility] , OP REVISED REPORT - 26-May-2010 13:54:00 Exam: Noncontrast MR left knee performed at [facility] Impression: 1. Complex tear of the body of the lateral meniscus with displaced flap into the superior femoral recess. 2. Bone marrow edema pattern in the anteromedial aspect of the medial femoral condyle with thinning of the overlying cartilage. The medial meniscus appears intact. ?? 3. Mild pes anserine bursopathy. Comparison(s): No prior MRs. CR 12/16/2009. History: 55-year-old man with painful left knee for over a year. He has had Synvisc injections in both knees. Findings: Bone marrow edema pattern is seen within the anteromedial aspect of the medial femoral condyle. The overlying cartilage is significantly thinned. Mild chondromalacia of the lateral and patellofemoral compartments. The cruciate and collateral ligamentous complexes are intact. The medial meniscus is intact. Complex tear of the body of the lateral meniscus with displaced fragment into the superior femoral gutter. Small joint effusion and popliteal cyst. Mild pes anserine bursopathy. Electronically signed by: ?? Jennyfer Lloyd MD [phone] 26-May-2010 13:54 Procedure Note Vinay Lloyd M.D. - 07/09/2017 26-May-2010 09:59:00 Exam: L MRI LE JOINT wo Indications: Left knee pain, suspect internal derangement, Dr. Cuenca, , phone # [phone], no compares, [facility] ,OP REVISED REPORT - 26-May-2010 13:54:00 Exam: Noncontrast MR left knee performed at [facility] Impression: 1. Complex tear of the body of the lateral meniscus with displaced flapinto the superior femoral recess. 2. Bone marrow edema pattern in the anteromedial aspect of the medialfemoral condyle with thinning of the overlying cartilage. The medialmeniscus appears intact. 3. Mild pes anserine bursopathy. Comparison(s): No prior MRs. CR 12/16/2009. History: 55-year-old man with painful left knee for over a year. He hashad Synvisc injections in both knees. Findings: Bone marrow edema pattern is seen within the anteromedial aspect of themedial femoral condyle. The overlying cartilage is significantly thinned.Mild chondromalacia of the lateral and patellofemoral compartments. The cruciate and collateral ligamentous complexes are intact. The medialmeniscus is intact. Complex tear of the body of the lateral meniscus withdisplaced fragment into the superior femoral gutter. Small joint effusion and popliteal cyst. Mild pes anserine bursopathy. Electronically signed by: Jennyfer Lloyd MD [phone] 26-May-2010 13:54 Historical Provider IMG MRI PROCEDURES * US Extremity Veins (03/31/2010 2:34 PM DEPARTURE CLERK) Anatomical Region Laterality Modality Vascular, Upper Extremity, Lower Extremity Ultrasound 03/31/2010 2:34 PM DEPARTURE CLERK Narrative 03/31/2010 3:03 PM DEPARTURE CLERK 31-Mar-2010 14:34:00 ??Exam: L US Extremity Veins Limited Indications: Left LE DVT Exam - pain hip ORIGINAL REPORT - 31-Mar-2010 15:03:00 Left US Extremity Duplex Scan Veins Limited with color and spectral Doppler analysis: The left common femoral, upper deep femoral, femoral, and popliteal veins are widely patent, with no evidence of intraluminal thrombus. The left posterior tibial and peroneal veins were segmentally visualized and are normal where seen. The great saphenous vein is patent and negative for thrombus. Electronically signed by: ?? Chu De Jesus MD ??[phone] 31-Mar-2010 15:03 Procedure Note Speedy De Jesus M.D. - 07/10/2017 31-Mar-2010 14:34:00 Exam: L US Extremity Veins Limited Indications: Left LE DVT Exam - pain hip ORIGINAL REPORT - 31-Mar-2010 15:03:00 Left US Extremity Duplex Scan Veins Limited with color and spectralDoppler analysis: The left common femoral, upper deep femoral, femoral, and popliteal veinsare widely patent, with no evidence of intraluminal thrombus. The leftposterior tibial and peroneal veins were segmentally visualized and arenormal where seen. The great saphenous vein is patent and negative forthrombus. Electronically signed by: Chu De Jesus MD [phone] 31-Mar-2010 15:03 Denny Mckeon M.D. IMG US PROCEDURE S * DX Hip 2+ Views (03/18/2010 2:01 PM DEPARTURE CLERK) Only the most recent of2 resultswithin the time period is included. Anatomical Region Laterality Modality Lower Extremity, Hip N/A Radiographi c Imaging 03/18/2010 2:01 PM DEPARTURE CLERK Narrative 03/18/2010 2:03 PM [facility] 18-Mar-2010 14:01:00 ??Exam: L Hip 2vw AP/Lat Indications: POST-OP: DJD; left hip arthroplasty total ORIGINAL REPORT - 18-Mar-2010 14:03:00 Left Hip 2vw AP/Lat: Left XAVI is well seated. Negative for PO purposes. Right XAVI. Electronically signed by: ?? Derek Elizalde MD ??[phone] 18-Mar-2010 14:03 Procedure Note Kirby Elizalde M.D. - 07/10/2017 18-Mar-2010 14:01:00 Exam: L Hip 2vw AP/Lat Indications: POST-OP: DJD; left hip arthroplasty total ORIGINAL REPORT - 18-Mar-2010 14:03:00 Left Hip 2vw AP/Lat: Left XAVI is well seated. Negative for PO purposes. Right XAVI. Electronically signed by: Derek Elizalde MD [phone] 18-Mar-2010 14:03 Denny Mckeon M.D. IMJc DIAGNOSTIC I MAGING PROCEDURES * DX Knee Standing 4 Views (12/16/2009 11:02 AM CDT) Anatomical Region Laterality Modality Radiographic Penny ging 12/16/2009 11:0 2 AM CDT Narrative 12/16/2009 11:04 AM CDT 16-Dec-2009 11:02:00 ??Exam: L Knee 4vw/STDG w/patella/PAfl Indications: knee^ ORIGINAL REPORT - 16-Dec-2009 11:04:00 Left Knee 4vw/STDG w/patella/PAflex: Degenerative arthritis left knee with mild hypertrophic changes and joint space narrowing. Electronically signed by: ?? M.C. ??Rufus EPSTEIN. ??[phone] 16-Dec-2009 11:04 Procedure Note Wilber Hooper M.D. - 07/10/2017 16-Dec-2009 11:02:00 Exam: L Knee 4vw/STDG w/patella/PAfl Indications: knee^ ORIGINAL REPORT - 16-Dec-2009 11:04:00 Left Knee 4vw/STDG w/patella/PAflex: Degenerative arthritis left knee with mild hypertrophic changes and jointspace narrowing. Electronically signed by: Fritz Hooper MD. [id number] 16-Dec-2009 11:04 Vinay Pickard M.D. IMG DIAGNOSTIC IM AGING PROCEDURES * Outside DX Skeletal (12/11/2009 9:01 AM CDT) Only the most recent of9 resultswithin the time period is included. 12/11/2009 9:01 AM CDT Addenda Addendum by ProviderFlaco M.D. on 12/11/2009 9:01 AM CDT ODM^^^MCR PELVIS, PELVIS 12/11/2009 09:01:28 Historical Provider IMG DIAGNOSTIC IMAGI NG PROCEDURES [facility] [address] [place] [address] * ORTHOPEDIC SURGERY IMAGE EXAM (12/11/2009 9:01 AM CDT) Only the most recent of2 resultswithin the time period is included. Anatomical Region Laterality Modality Other 12/11/2009 9:01 AM CDT Addenda Addendum by ProviderFlaco M.D. on 12/11/2009 9:01 AM CDT ORTHO^^^MCR SC-Hip 2vw AP/Obl 12/11/2009 09:01:00 Historical Provider IMG NON RAD IMAGING PROCEDURES * Compare of Outside CT Chest (09/01/2009 3:16 AM CDT) 09/01/2009 3:16 AM CDT Narrative [facility] [employer] - 09/01/2009 8:18 AM CDT 01-Sep-2009 03:16:00 ??Exam: CF CT Chest Indications: chest pain ro disection ?? Felicitas BAILEY [phone]; [place] ; [facility] MRN compares 04-11-09 ??05-24-08 ??05-14-08 ORIGINAL REPORT - 01-Sep-2009 08:18:00 CT scan of the chest, abdomen, and pelvis without and with IV contrast material and without oral contrast material was done for aortic dissection protocol. No evidence of aortic pathology. 11mm low-attenuation nodule in the left lobe of the thyroid gland is indeterminate. Mild dependent atelectasis/edema in the posterior lower lungs. PO changes right hip. Degenerative changes both SI joints Examination is otherwise unremarkable. Electronically signed by: ?? Jessica Kelley MD. ??[id number] 01-Sep-2009 08:18 Procedure Note Asael Kelley M.D. - 07/10/2017 01-Sep-2009 03:16:00 Exam: CF CT Chest Indications: chest pain ro disection Felicitas BAILEY [id number]; [place] [phone]; [facility] MRN compares 04-11-09 05-24-08 05-14-08 ORIGINAL REPORT - 01-Sep-2009 08:18:00 CT scan of the chest, abdomen, and pelvis without and with IV contrastmaterial and without oral contrast material was done for aortic dissectionprotocol. No evidence of aortic pathology. 11mm low-attenuation nodule inthe left lobe of the thyroid gland is indeterminate. Mild dependentatelectasis/edema in the posterior lower lungs. PO changes right hip.Degenerative changes both SI joints Examination is otherwise unremarkable. Electronically signed by: Jessica Kelley MD. [id number] 01-Sep-2009 08:[address] PROCEDURES [facility] [address] [place] [address] * Compare of Outside CT Abdomen and or Pelvis (09/01/2009 3:16 AM CDT) 09/01/2009 3:16 AM CDT [facility] [place] [facility] - 09/01/2009 8:18 AM CDT 01-Sep-2009 03:16:00 ??Exam: CF CT Abd and or Pelvis Indications: chest pain ro disection ?? Felicitas Moran ; [place] ; [facility] MRN compares 04-11-09 ??05-24-08 ??05-14-08 ORIGINAL REPORT - 01-Sep-2009 08:18:00 CT scan of the chest, abdomen, and pelvis without and with IV contrast material and without oral contrast material was done for aortic dissection protocol. No evidence of aortic pathology. 11mm low-attenuation nodule in the left lobe of the thyroid gland is indeterminate. Mild dependent atelectasis/edema in the posterior lower lungs. PO changes right hip. Degenerative changes both SI joints Examination is otherwise unremarkable. Electronically signed by: ?? Jessica Kelley MD. ??[id number] 01-Sep-2009 08:18 Procedure Note Asael Kelley M.D. - 07/10/2017 01-Sep-2009 03:16:00 Exam: CF CT Abd and or Pelvis Indications: chest pain ro disection Felicitas Moran ; [place] [phone]; [facility] MRN compares 04-11-09 05-24-08 2 ORIGINAL REPORT - 01-Sep-2009 08:18:00 CT scan of the chest, abdomen, and pelvis without and with IV contrastmaterial and without oral contrast material was done for aortic dissectionprotocol. No evidence of aortic pathology. 11mm low-attenuation nodule inthe left lobe of the thyroid gland is indeterminate. Mild dependentatelectasis/edema in the posterior lower lungs. PO changes right hip.Degenerative changes both SI joints Examination is otherwise unremarkable. Electronically signed by: Jessica Kelley MD. [id number] 01-Sep-2009 08:[address] PROCEDURES [facility] [address] [place] [address] * Compare of Outside DX Chest (09/01/2009 1:40 AM CDT) 09/01/2009 1:40 AM CDT [facility] [place] [facility]OLOG[facility] - 09/01/2009 7:54 AM CDT 01-Sep-2009 01:40:00 ??Exam: CF XR Chest Indications: chest pain cough ??Felicitas Moran ; [place] ; [facility] MRN compares 04-11-09 ??05-24-08 ??05-14-08 ORIGINAL REPORT - 01-Sep-2009 07:54:00 AP chest. Mildly ectatic aorta. Chest otherwise negative. Electronically signed by: ?? Hemant Chin MD [id number] 01-Sep-2009 07:54 Procedure Note Hemant Chin M.D. - 07/10/2017 01-Sep-2009 01:40:00 Exam: CF XR Chest Indications: chest pain cough Felicitas Debus ; [place] [phone]; [facility] MRN compares --05-24-08 05-14-08 ORIGINAL REPORT - 01-Sep-2009 07:54:00 AP chest. Mildly ectatic aorta. Chest otherwise negative. Electronically signed by: Hemant Chin MD [id number] 01-Sep-2009 07:54 Historical Provider IMG DIAGNOSTIC IMAGI NG PROCEDURES Performing Organization Address City/State/[facility] Co de Phone Number [facility] [address] [place] [address] * DX Lumbar Spine 4+ Views (08/08/2009 11:46 AM CDT) Anatomical Region Laterality Modality Lumbar Spine N/A Radiographic Penny ging 08/08/2009 11:4 6 AM CDT Narrative 08/08/2009 11:47 AM CDT 08-Aug-2009 11:46:00 ??Exam: Sp Lmb 5vw AP/Lat/Spt/Fl/Ex Indications: spine pain^standing ORIGINAL REPORT - 08-Aug-2009 11:47:00 Sp Lmb 5vw AP/Lat/Spt/Fl/Ex: Mild hypertrophic changes lumbar spine. Mild degenerative changes left hip. Right XAVI. No instability on flexion and extension. Electronically signed by: ?? Jesscia Kelley MD. ??[id number] 08-Aug-2009 11:47 Procedure Note Asael Kelley M.D. - 07/10/2017 08-Aug-2009 11:46:00 Exam: Sp Lmb 5vw AP/Lat/Spt/Fl/Ex Indications: spine pain^standing ORIGINAL REPORT - 08-Aug-2009 11:47:00 Sp Lmb 5vw AP/Lat/Spt/Fl/Ex: Mild hypertrophic changes lumbar spine. Mild degenerative changes lefthip. Right XAVI. No instability on flexion and extension. Electronically signed by: Jessica Kelley MD. [phone] 08-Aug-2009 11:47 Mayco HUERTAS DIAGNOSTIC IMAGI NG PROCEDURES * MR Lumbar Spine without IV Contrast (08/08/2009 10:54 AM CDT) Anatomical Region Laterality Modality Lumbar Spine N/A Magnetic Resonan ce 08/08/2009 10:5 4 AM CDT Narrative 08/08/2009 11:46 AM CDT 08-Aug-2009 10:54:00 ??Exam: MRI LUMBAR Sp Indications: lumbar sp - pain low back con per rad ORIGINAL REPORT - 08-Aug-2009 11:46:00 MRI lumbar spine without intravenous contrast performed on 08/08/2009. No comparison study. Slight retrolisthesis of L4 upon L5 with disc desiccation and slight loss of disc height at L4-L5. Remainder of vertebral bodies are normally aligned with normal contour and signal intensity. Conus medullaris at T12 level with normal contour and signal intensity. No abnormal paravertebral soft tissue masses. Small fatty filum terminale as a developmental variant. The following levels were evaluated in the axial plane: At L2-L3: Normal. At L3-L4: Mild disc bulge effaces ventral margin of thecal sac without contact of the exiting L3 nerve roots. ??Otherwise normal. At L4-L5: Broad-based disc bulge with superimposed central disc protrusion focally indents ventral margin of thecal sac without contact of the exiting L4 nerve roots. Mild bilateral facet hypertrophy. Mild-moderate spinal stenosis with moderate bilateral lateral recess stenosis. At L5-S1: Mild bilateral facet hypertrophy. Otherwise normal. Electronically signed by: ?? Adelia Miller MD [phone] 08-Aug-2009 11:46 Procedure Note Adelia Miller M.D. - 07/10/2017 08-Aug-2009 10:54:00 Exam: MRI LUMBAR Sp Indications: lumbar sp - pain low back con per rad ORIGINAL REPORT - 08-Aug-2009 11:46:00 MRI lumbar spine without intravenous contrast performed on 08/08/2009. No comparison study. Slight retrolisthesis of L4 upon L5 with disc desiccation and slight lossof disc height at L4-L5. Remainder of vertebral bodies are normallyaligned with normal contour and signal intensity. Conus medullaris at G66mmsyt with normal contour and signal intensity. No abnormal paravertebralsoft tissue masses. Small fatty filum terminale as a developmentalvariant. The following levels were evaluated in the axial plane: At L2-L3: Normal. At L3-L4: Mild disc bulge effaces ventral margin of thecal sac withoutcontact of the exiting L3 nerve roots. Otherwise normal. At L4-L5: Broad-based disc bulge with superimposed central disc protrusionfocally indents ventral margin of thecal sac without contact of theexiting L4 nerve roots. Mild bilateral facet hypertrophy. Mild-moderatespinal stenosis with moderate bilateral lateral recess stenosis. At L5-S1: Mild bilateral facet hypertrophy. Otherwise normal. Electronically signed by: Adelia Miller MD [phone] 08-Aug-2009 11:46 Mayco Davis M.D. Jc MRI PROCEDURES * Compare of Outside DX Extremity (07/12/2009 10:45 PM CDT) 07/12/2009 10:4 5 PM CDT [facility] [place] [facility] - 07/14/2009 9:13 AM CDT 12-Jul-2009 22:45:00 ??Exam: L CF XR Extremity Lower Indications: Lt hip pain, Hemant Lee , LT hip 2 view, compares 12-24-08, 08-20-08, and 05-21-08, [facility] ORIGINAL REPORT - 14-Jul-2009 09:13:00 2 views of the left hip. Mild degenerative changes of the left hip. Small ununited bone fragments along the posterior rim of the left acetabulum, likely degenerative and largely unchanged when compared to the outside radiographs 12-24-2008. ?? Mild degenerative sclerosis of both SI joints. Right XAVI. Electronically signed by: ?? Pallavi Okeefe MD [id number] 14-Jul-2009 09:13 Procedure Note Lenny Okeefe M.D. - 07/10/2017 12-Jul-2009 22:45:00 Exam: L CF XR Extremity Lower Indications: Lt hip pain, Hemant Lee , LT hip 2 view,compares 12-24-08, 08-20-08, and 05-21-08, [facility] , [place] ORIGINAL REPORT - 14-Jul-2009 09:13:00 2 views of the left hip. Mild degenerative changes of the left hip. Small ununited bone fragmentsalong the posterior rim of the left acetabulum, likely degenerative andlargely unchanged when compared to the outside radiographs 12-24-2008. Mild degenerative sclerosis of both SI joints. Right XAVI. Electronically signed by: Pallavi Okeefe MD [id number] 14-Jul-2009 09:13 Historical Provider IMG DIAGNOSTIC IMAGI NG PROCEDURES Performing Organization Address [facility] Co va Phone Number [facility] [address] [place] [address] * Outside CT Body (04/11/2009 9:46 AM DEPARTURE CLERK) 04/11/2009 9:46 AM DEPARTURE CLERK Addenda Addendum by ProviderFlaco M.D. on 04/11/2009 9:46 AM DEPARTURE CLERK ODM^^^MCR CT CHEST / ABD & PELVIS 04/11/2009 09:46:[address] PROCEDURES Performing Organization Address [facility] Co va Phone [facility] [address] [place] [address] * HIP (12/24/2008 9:03 AM CDT) Only the most recent of19 resultswithin the time period is included. Anatomical Region Laterality Modality Other 12/24/2008 9:03 AM CDT Historical Provider IMG NON RAD IMAGING PROCEDURES * Outside MR Neuro (06/30/2008 2:53 PM CDT) 06/30/2008 2:53 PM CDT Addenda Addendum by ProviderFlaco M.D. on 06/30/2008 2:53 PM CDT ODM^^^MCR LUMBAR 06/30/2008 14:53:26 Historical Provider IMG MRI PROCEDURES [facility] [address] [place] [address] Visit Diagnoses Diagnosis Start Date Pain Back 05/09/2017 Hypertension Essential Primary 04/20/2018 Bradycardia 04/20/2018 Abnormal Electrocardiogram 04/20/2018 Mccormack's Esophagus 04/02/2019 Hematochezia 04/02/2019 Mccormack's Esophagus 06/04/2019 Hematochezia 06/04/2019 Encounter For COVID-19 Vaccine Immunization 06/20/2020 Encounter For COVID-19 Vaccine Immunization 07/15/2020 Contact With And (Suspected) Exposure To COVID-19 07/27/2020 Pain Knee Left 01/10/2022 Non-ST Elevation Myocardial Infarction (HCC) 04/22/2023 Non-ST Elevation Myocardial Infarction (HCC) 04/25/2023 Coronary Artery Disease With Unstable Angina (HCC) 04/28/2023 Bypass Coronary Artery Graft Status Post 05/02/2023 Bypass Coronary Artery Graft Status Post 05/02/2023 Non-ST Elevation Myocardial Infarction (HCC) 04/23/2023 Nicotine Dependence Cigarettes With Withdrawal 04/23/2023 Decline Functional Status [R53.81] 04/23/2023 Bypass Coronary Artery Graft Status Post 04/23/2023 Acute Respiratory Failure With Hypoxia (HCC) 04/23/2023 Bypass Coronary Artery Graft Status Post 05/06/2023 Nicotine Dependence Cigarettes With Withdrawal 05/10/2023 Bypass Coronary Artery Graft Status Post 05/17/2023 Bypass Coronary Artery Graft Status Post 05/20/2023 Bypass Coronary Artery Graft Status Post 05/23/2023 Bypass Coronary Artery Graft Status Post 05/25/2023 Nicotine Dependence Cigarettes With Withdrawal 05/26/2023 Bypass Coronary Artery Graft Status Post 05/27/2023 Bypass Coronary Artery Graft Status Post 05/30/2023 Bypass Coronary Artery Graft Status Post 06/01/2023 Bypass Coronary Artery Graft Status Post 06/03/2023 Bypass Coronary Artery Graft Status Post 06/06/2023 Bypass Coronary Artery Graft Status Post 06/08/2023 Bypass Coronary Artery Graft Status Post 06/10/2023 Bypass Coronary Artery Graft Status Post 06/13/2023 Nicotine Dependence Cigarettes With Withdrawal 06/14/2023 Bypass Coronary Artery Graft Status Post 06/21/2023 Bypass Coronary Artery Graft Status Post 06/22/2023 Bypass Coronary Artery Graft Status Post 06/24/2023 Bypass Coronary Artery Graft Status Post 06/27/2023 Nicotine Dependence Cigarettes With Withdrawal 06/28/2023 Bypass Coronary Artery Graft Status Post 06/29/2023 Bypass Coronary Artery Graft Status Post 06/30/2023 Bypass Coronary Artery Graft Status Post 07/06/2023 Bypass Coronary Artery Graft Status Post 07/08/2023 Bypass Coronary Artery Graft Status Post 07/11/2023 Bypass Coronary Artery Graft Status Post 07/13/2023 Bypass Coronary Artery Graft Status Post 07/15/2023 Bypass Coronary Artery Graft Status Post 07/18/2023 Nicotine Dependence Cigarettes With Withdrawal 07/19/2023 Bypass Coronary Artery Graft Status Post 07/20/2023 Bypass Coronary Artery Graft Status Post 07/22/2023 Bypass Coronary Artery Graft Status Post 07/25/2023 Bypass Coronary Artery Graft Status Post 07/27/2023 Bypass Coronary Artery Graft Status Post 07/27/2023 Hyperlipidemia 07/27/2023 Non-ST Elevation Myocardial Infarction (HCC) 07/28/2023 Bypass Coronary Artery Graft Status Post 07/29/2023 Bypass Coronary Artery Graft Status Post 08/01/2023 Nicotine Dependence Cigarettes With Withdrawal 08/02/2023 Bypass Coronary Artery Graft Status Post 08/03/2023 Bypass Coronary Artery Graft Status Post 08/05/2023 Bypass Coronary Artery Graft Status Post 08/08/2023 Bypass Coronary Artery Graft Status Post 08/10/2023 Bypass Coronary Artery Graft Status Post 08/12/2023 Bypass Coronary Artery Graft Status Post 08/15/2023 Laceration Without Foreign Body Right Index Finger Without Damage To Nail Initial 12/11/2023 Mccormack's Esophagus 06/04/2019 Hematochezia 06/04/2019 Non-ST Elevation Myocardial Infarction (HCC) 04/23/2023 Pain Postoperative 04/23/2023 Acute Metabolic Acidosis 04/23/2023 Leukocytosis 04/23/2023 Anemia Posthemorrhagic Acute (Blood Loss Anemia) 04/23/2023 Bypass Coronary Artery Graft Status Post 04/23/2023 Therapy Lace Inspector Antiplatelet 04/23/2023 Tachycardia 04/23/2023 Atelectasis 04/23/2023 Cardiac Surgery Status Post 04/23/2023 Effusion Pleural 04/23/2023 Postprocedural Pneumothorax 04/23/2023 Hypertensive Heart Disease Without Heart Failure 04/23/2023 Care Teams New Client Banking Services Clerk Relationship Specialty Start Date End Date Elsewhere, Pcp PCP - General Internal Medicine 01/10/22
--- OUTSIDE RECORDS SUMMARY | 2023-12-29 07:33 | XMS_ITS | Clinical Summary ---
Author Organization [email or web address] [facility] Address [place], [place] [address] Care Team Providers Care [employer] Name Role Phone Malissa Zuñiga NP Primary Care Provider [phone] Allergies Active Allergy Reactions Criticality Noted Date Comments Phenytoin Headache 05/18/2010 Severe. Aka: dilantin Medications Medication Sig Dispensed Refills Start Date End Date Status lisinopril (PRINIVIL; ZESTRIL) 20 mg tablet Take 1 tablet by mouth once daily. 0 05/27/2010 Active simvastatin (ZOCOR) 20 mg tablet Take 1 tablet by mouth at bedtime. 0 05/27/2010 Active aspirin 325 mg tablet Take 1 tablet by mouth once daily with a meal. 0 05/27/2010 Active traMADol (ULTRAM) 50 mg tablet Take 50 mg by mouth. 02/10/2009 Active Omeprazole 20 mg tablet Take 20 mg by mouth. 05/22/2018 Active hydroCHLOROthiazide (HCTZ) 25 mg tablet Take 1 Tablet by mouth once daily. 12/03/2021 Active metoprolol tartrate (LOPRESSOR) 25 mg tablet Take 1 Tablet by mouth once daily. 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 09/09/2016 Hyperlipidemia 05/10/2016 Cubital tunnel syndrome 05/12/2011 Irritation of ulnar nerve - Right 04/14/2011 Hypertension 03/17/2010 Encounters Date Type Department Care Team Description 12/19/2023 8:27 AM CDT - 12/19/2023 11:04 AM CDT Emergency [facility] [address] [place] [address] Milana Melo PA Closed fracture of one rib of right side, initial encounter (Primary Dx); Closed fracture of right scapula, unspecified part of scapula, initial encounter; Injury of right knee, initial encounter; Pulmonary nodule; Closed head injury, initial encounter Discharge Disposition: Home Self Care from Last 3 Months Social History Tobacco Use Types Packs/Day Years Used Date Smoking Tobacco: Some Days Cigarettes 0.4 30 Smokeless Tobacco: Never Tobacco Cessation:Ready to Q uit: No; Counseling Given: Yes Comments:3 cig a day Alcohol Use Standard Drinks/Week Comments Yes 1.7 (1 standard drink = 0.6 oz p ure alcohol) occ Sex and Gender Information Value Date Recorded Sex Assigned at Not on file Gender Identity Not on file Sexual Orientation Not on file Obstetrics History Last Filed Vital Signs Vital Sign Reading Time Taken Comments Blood Pressure 115/64 12/19/2023 10:51 AM CDT Pulse 71 12/19/2023 10:52 AM CDT Temperature 36.6 ??C (97.9 ??F) 12/19/2023 8:38 AM CD T Respiratory Rate 16 12/19/2023 8:38 AM CDT Oxygen Saturation 100% 12/19/2023 10:53 AM CDT Inhaled Oxygen Concentration - - Weight 95.3 kg (210 lb) 12/19/2023 8:38 AM CDT Height 175.3 cm (5' 9) 12/19/2023 8:38 AM CDT Body Mass Index 31.01 12/19/2023 8:38 AM CDT Plan of Treatment Health Maintenance Due Date Last Done Comments Tdap 1965 Depression screening for age 12+ 1966 Hepatitis C screening for ag e 18-79 1972 Tetanus booster 1974 Colonoscopy through age 75 1999 Lipids for age 45-75 1999 Zoster (shingles) series for age 50+ (1 of 2) 2004 Medicare Wellness for age 65+ 2019 Pneumococcal series for age 65+ (1 of 1 - PCV) 2019 BMI (ht and wt on same day) for age 18+ 01/09/2020 01/08/2019, 01/18/2018, 01/28/2017, Additional history exists COVID-19 vaccine series ( season) 2023 04/19/2023, 07/15/2020, 06/20/2020 Influenza for age 65+ 12/11/2023 Procedures Procedure Name Priority Date/Time Associated Diagnosis Comments XR SHOULDER 3 VIEWS RIGHT STAT 12/19/2023 10:01 AM CDT XR KNEE 3 VIEWS RIGHT STAT 12/19/2023 10:[address] CHEST ABDOMEN PELVIS W STAT 12/19/2023 10:[address] HEAD BRAIN WO STAT 12/19/2023 9:48 AM CDT MANUAL DIFFERENTIAL STAT 12/19/2023 9 :14 AM CDT CBC WITH AUTO DIFFERENTIAL STAT 12/19/2023 9:14 AM CDT BASIC METABOLIC PANEL STAT 12/19/2023 9:14 AM CDT CBC WITH AUTO DIFFERENTIAL STAT 12/19/2023 9:14 AM CDT from Last 3 Months Results * XR SHOULDER 3 VIEWS RIGHT (12/19/2023 10:01 AM CDT) Anatomical Region Laterality Modality SHOULDERS, SHOULDER R Computed R adiography 12/19/2023 10:0 1 AM CDT Impressions 12/19/2023 10:20 AM CDT Right shoulder negative for acute fracture or dislocation. Moderate degenerative changes glenohumeral joint. Mild degenerative changes acromioclavicular joint. Sternotomy. Narrative 12/19/2023 10:20 AM CDT For Patients: As a result of the Cures Act, medical imaging exams and procedure reports are released immediately into your electronic medical record. You may view this report before your referring provider. If you have questions, please contact your health care provider. EXAM: XR SHOULDER 3 VIEWS RIGHT LOCATION: [facility] DATE: 12/19/2023 INDICATION: Pain COMPARISON: None. Procedure Note Grady Gutierrez MD - 12/19/2023 For Patients: As a result of the Cures Act, medical imagingexams and procedure reports are released immediately into your electronicmedical record. You may view this report before your referring provider.If you have questions, please contact your health care provider. EXAM: XR SHOULDER 3 VIEWS RIGHT LOCATION: [facility] DATE: 12/19/2023 INDICATION: Pain COMPARISON: None. IMPRESSION: Right shoulder negative for acute fracture or dislocation. Moderatedegenerative changes glenohumeral joint. Mild degenerative changesacromioclavicular joint. Sternotomy. Milana WILL[facility] * XR KNEE 3 VIEWS RIGHT (12/19/2023 10:01 AM CDT) Anatomical Region Laterality Modality KNEES, KNEE R Computed Radiogr aphy 12/19/2023 10:0 1 AM CDT Impressions 12/19/2023 10:21 AM CDT Moderate focal swelling suprapatellar region. Small joint effusion. No fracture or dislocation. Mild tricompartmental hypertrophic degenerative changes, greatest in the patellofemoral compartment. Narrative 12/19/2023 10:21 AM CDT For Patients: As a result of the Cures Act, medical imaging exams and procedure reports are released immediately into your electronic medical record. You may view this report before your referring provider. If you have questions, please contact your health care provider. EXAM: XR KNEE 3 VIEWS RIGHT LOCATION: [facility] DATE: 12/19/2023 INDICATION: Pain COMPARISON: None. Procedure Note Grady Gutierrez MD - 12/19/2023 For Patients: As a result of the s Act, medical imagingexams and procedure reports are released immediately into your electronicmedical record. You may view this report before your referring provider.If you have questions, please contact your health care provider. EXAM: XR KNEE 3 VIEWS RIGHT LOCATION: [facility] [place] DATE: 12/19/2023 INDICATION: Pain COMPARISON: None. IMPRESSION: Moderate focal swelling suprapatellar region. Small joint effusion. Nofracture or dislocation. Mild tricompartmental hypertrophic degenerativechanges, greatest in the patellofemoral compartment. Milana [facility] * CT CHEST ABDOMEN PELVIS W (12/19/2023 10:00 AM CDT) Anatomical Region Laterality Modality Abdomen, Pelvis, AORTA, LIVER, SPLEEN, CHEST Computed Tomography 12/19/2023 10:0 0 AM CDT Impressions 12/19/2023 10:51 AM CDT 1. ??Acute minimally displaced right fourth lateral rib fracture. There are likely old, healed fifth-eighth right lateral rib fractures. Correlate for point tenderness. 2. ??Acute minimally displaced fracture of the inferior tip of the right scapula. 3. ??No pneumothorax or effusions. 4. ??Scattered pulmonary nodules measuring up to 7 mm. Follow-up guidelines as below. REFERENCE: Guidelines for Management of Incidental Pulmonary Nodules Detected on CT Images: From the Fleischner Society 2017. Guidelines apply to incidental nodules in patients who are 35 years or older. Guidelines do not apply to lung cancer screening, patients with immunosuppression, or patients with known primary cancer. MULTIPLE NODULES Nodule size <6 mm Low-risk patients: No follow-up needed. High-risk patients: Optional follow-up at 12 months. Nodule size 6 mm or larger Low-risk patients: Follow-up CT at 3-6 months, then consider CT at 18-24 months. High-risk patients: Follow-up CT at 3-6 months, then at 18-24 months if no change. -Use most suspicious nodule as guide to management. Narrative 12/19/2023 10:51 AM CDT For Patients: As a result of the Century Cures Act, medical imaging exams and procedure reports are released immediately into your electronic medical record. You may view this report before your referring provider. If you have questions, please contact your health care provider. EXAM: CT CHEST ABDOMEN PELVIS W LOCATION: [facility] [place] DATE: 12/19/2023 INDICATION: On Plavix, fall from 6+ feet, right-sided chest and abdominal pain. COMPARISON: None. TECHNIQUE: CT scan of the chest, abdomen, and pelvis was performed following injection of IV contrast. Multiplanar reformats were obtained. Dose reduction techniques were used. CONTRAST: IOPAMIDOL 300 MG/ML IV 100 ML BOTTLE: 100mL FINDINGS: LUNGS AND PLEURA: Patchy areas of atelectasis and scarring. No effusions or pneumothorax. Scattered pulmonary nodules with the largest measuring 9 x 5 mm (average 7 mm) in the right lower lobe on series 8 image 113. MEDIASTINUM/AXILLAE: Mild cardiomegaly. CABG changes and sternotomy wires. No mediastinal hematoma. No evidence of aortic injury. No adenopathy. CORONARY ARTERY CALCIFICATION: Previous intervention (stents or CABG). HEPATOBILIARY: Cholecystectomy. PANCREAS: Normal. SPLEEN: Normal. ADRENAL GLANDS: Normal. KIDNEYS/BLADDER: No significant mass, stone, or hydronephrosis. BOWEL: Diverticulosis of the colon. No acute inflammatory change. No obstruction. No free air or evidence of bowel injury. Normal appendix. Small periampullary duodenal diverticulum. LYMPH NODES: Normal. VASCULATURE: No abdominal aortic aneurysm. No retroperitoneal hematoma. PELVIC ORGANS: Obscured by beam hardening artifact from hip arthroplasties. MUSCULOSKELETAL: Partially visualized left shoulder arthroplasty. Degenerative changes of the right shoulder. Avascular necrosis of the right humeral head without subchondral collapse. Acute minimally displaced right fourth lateral rib fracture. There are likely old healed fifth-eighth right lateral rib fractures. Acute minimally displaced fracture of the inferior tip of the right scapula (series 8/62). Bilateral hip arthroplasties. Degenerative changes of the spine. Procedure Note Toro Lay MD - 12/19/2023 For Patients: As a result of the 21st Century Cures Act, medical imagingexams and procedure reports are released immediately into your electronicmedical record. You may view this report before your referring provider.If you have questions, please contact your health care provider. EXAM: CT CHEST ABDOMEN PELVIS W LOCATION: [facility] [place] DATE: 12/19/2023 INDICATION: On Plavix, fall from 6+ feet, right-sided chest and abdominalpain. COMPARISON: None. TECHNIQUE: CT scan of the chest, abdomen, and pelvis was performedfollowing injection of IV contrast. Multiplanar reformats were obtained.Dose reduction techniques were used. CONTRAST: IOPAMIDOL 300 MG/ML IV 100 ML BOTTLE: 100mL FINDINGS: LUNGS AND PLEURA: Patchy areas of atelectasis and scarring. No effusionsor pneumothorax. Scattered pulmonary nodules with the largest measuring 9x 5 mm (average 7 mm) in the right lower lobe on series 8 image 113. MEDIASTINUM/AXILLAE: Mild cardiomegaly. CABG changes and sternotomy wires.No mediastinal hematoma. No evidence of aortic injury. No adenopathy. CORONARY ARTERY CALCIFICATION: Previous intervention (stents or CABG). HEPATOBILIARY: Cholecystectomy. PANCREAS: Normal. SPLEEN: Normal. ADRENAL GLANDS: Normal. KIDNEYS/BLADDER: No significant mass, stone, or hydronephrosis. BOWEL: Diverticulosis of the colon. No acute inflammatory change. Noobstruction. No free air or evidence of bowel injury. Normal appendix.Small periampullary duodenal diverticulum. LYMPH NODES: Normal. VASCULATURE: No abdominal aortic aneurysm. No retroperitoneal hematoma. PELVIC ORGANS: Obscured by beam hardening artifact from hiparthroplasties. MUSCULOSKELETAL: Partially visualized left shoulder arthroplasty.Degenerative changes of the right shoulder. Avascular necrosis of theright humeral head without subchondral collapse. Acute minimally displacedright fourth lateral rib fracture. There are likely old healedfifth-eighth right lateral rib fractures. Acute minimally displacedfracture of the inferior tip of the right scapula (series 8/62). Bilateralhip arthroplasties. Degenerative changes of the spine. IMPRESSION: 1. Acute minimally displaced right fourth lateral rib fracture. There arelikely old, healed fifth-eighth right lateral rib fractures. Correlate forpoint tenderness. 2. Acute minimally displaced fracture of the inferior tip of the rightscapula. 3. No pneumothorax or effusions. 4. Scattered pulmonary nodules measuring up to 7 mm. Follow-up guidelinesas below. REFERENCE: Guidelines for Management of Incidental Pulmonary Nodules Detected on CTImages: From the Fleischner Society 2017. Guidelines apply to incidental nodules in patients who are 35 years orolder. Guidelines do not apply to lung cancer screening, patients withimmunosuppression, or patients with known primary cancer. MULTIPLE NODULES Nodule size <6 mm Low-risk patients: No follow-up needed. High-risk patients: Optional follow-up at 12 months. Nodule size 6 mm or larger Low-risk patients: Follow-up CT at 3-6 months, then consider CT at 18-24months. High-risk patients: Follow-up CT at 3-6 months, then at 18-24 months if nochange. -Use most suspicious nodule as guide to management. Milana WILLIAM CT * CT HEAD BRAIN WO (12/19/2023 9:48 AM CDT) Anatomical Region Laterality Modality HEAD, BRAIN Computed Tomogra phy 12/19/2023 9:48 AM CDT Impressions 12/19/2023 10:01 AM CDT 1. ??No acute intracranial findings. 2. ??Mild volume loss and presumed chronic microvascular ischemic changes. 3. ??Postoperative changes of the right frontal bone and aneurysm clippings. Narrative 12/19/2023 10:01 AM CDT For Patients: As a result of the Cures Act, medical imaging exams and procedure reports are released immediately into your electronic medical record. You may view this report before your referring provider. If you have questions, please contact your health care provider. EXAM: CT HEAD BRAIN WO LOCATION: [facility] [place] DATE: 12/19/2023 INDICATION: Head trauma, on plavix COMPARISON: None. TECHNIQUE: Routine CT Head without IV contrast. Multiplanar reformats. Dose reduction techniques were used. FINDINGS: INTRACRANIAL CONTENTS: Postoperative changes of aneurysm clipping in the region of the right DAVID and right supraclinoid ICA. No intracranial hemorrhage, extraaxial collection, or mass effect. ??No CT evidence of acute infarct. Mild presumed chronic small vessel ischemic changes. Mild generalized volume loss. No hydrocephalus. Small focus of encephalomalacia within the anterior right frontal lobe adjacent to postsurgical changes of the skull. VISUALIZED ORBITS/SINUSES/MASTOIDS: No intraorbital abnormality. No paranasal sinus mucosal disease. No middle ear or mastoid effusion. BONES/SOFT TISSUES: Postoperative changes of the right frontal bone. No acute abnormality. Procedure Note Jericho Alicia MD - 12/19/2023 For Patients: As a result of the s Act, medical imagingexams and procedure reports are released immediately into your electronicmedical record. You may view this report before your referring provider.If you have questions, please contact your health care provider. EXAM: CT HEAD BRAIN WO LOCATION: [facility] DATE: 12/19/2023 INDICATION: Head trauma, on plavix COMPARISON: None. TECHNIQUE: Routine CT Head without IV contrast. Multiplanar reformats.Dose reduction techniques were used. FINDINGS: INTRACRANIAL CONTENTS: Postoperative changes of aneurysm clipping in theregion of the right DAVID and right supraclinoid ICA. No intracranialhemorrhage, extraaxial collection, or mass effect. No CT evidence ofacute infarct. Mild presumed chronic small vessel ischemic changes. Mildgeneralized volume loss. No hydrocephalus. Small focus of encephalomalaciawithin the anterior right frontal lobe adjacent to postsurgical changes ofthe skull. VISUALIZED ORBITS/SINUSES/MASTOIDS: No intraorbital abnormality. Noparanasal sinus mucosal disease. No middle ear or mastoid effusion. BONES/SOFT TISSUES: Postoperative changes of the right frontal bone. Noacute abnormality. IMPRESSION: 1. No acute intracranial findings. 2. Mild volume loss and presumed chronic microvascular ischemicchanges. 3. Postoperative changes of the right frontal bone and aneurysmclippings. Milana WILLIAM CT * (ABNORMAL) CBC WITH AUTO DIFFERENTIAL (12/19/2023 9:14 AM CDT) WHITE BLOOD COUNT 10.0 4.6 - 10.2 thou/cu mm 12/19/2023 9:23 AM CDT [facility] RED BLOOD COUNT 4.08 4.04 - 6.13 mil/cu mm 12/19/2023 9:23 AM CDT [facility] HEMOGLOBIN 13.6 12.2 - 18.1 g/dL 12/19/2023 9:23 AM CDT [facility] HEMATOCRIT 39.1 37.7 - 53.7 % 12/19/2023 9:23 AM CDT [facility] MCV 96 80 - 97 fL 12/19/2023 9:23 AM CDT [facility] MCH 33.3(H) 27.0 - 31.2 pg 12/19/2023 9:23 AM CDT [facility] MCHC 34.8 31.8 - 35.4 g/dL 12/19/2023 9:23 AM CDT [facility] RDW 15.6(H) 11.6 - 14.8 % 12/19/2023 9:23 AM CDT [facility] PLATELET COUNT 299 142 - 424 thou/cu mm 12/19/2023 9:23 AM CDT [facility] MPV 7.5 6.5 - 11.0 fL 12/19/2023 9:23 AM CDT [facility] Blood BLOOD SPECIMEN / Unknown Non-Lab Venipuncture / Unknown 12/19/2023 9:14 AM CDT 12/19/2023 9:15 AM CDT Milana WILLIAM HEMATOLOGY [facility] [address] [place] [address] * (ABNORMAL) MANUAL DIFFERENTIAL (12/19/2023 9:14 AM CDT) ADJUSTED WBC 10.0 thou/cu mm 12/19/2023 9:33 AM CDT [facility] % NEUTROPHILS 86.0(H) 37.0 - 80.0 % 12/19/2023 9:33 AM CDT [facility] % LYMPHOCYTES 11.0 10.0 - 50.0 % 12/19/2023 9:33 AM CDT [facility] % MONOCYTES 2.0 <=12.0 % 12/19/2023 9:33 AM CDT [facility] % EOSINOPHILS 1.0 <=7.0 % 12/19/2023 9:33 AM CDT [facility] % PROMYELOCYTES 9:33 AM CDT [facility] BAND CELLS 12/19/2023 9:33 AM CDT [facility] % METAMYELOCYTES 12/19/19 9:33 AM CDT [facility] % MYELOCYTES 12/19/2023 9:33 AM CDT [facility] % BLASTS 12/19/2023 9:33 AM CDT [facility] % OTHER CELLS 12/19/2023 9:33 AM CDT [facility] % PLASMA CELLS 12/19/2023 9:33 AM CDT [facility] NEUTROPHILS ABSOLUTE 8.6(H) 1.7 - 7.0 thou/cu mm 12/19/2023 9:33 AM CDT [facility] LYMPHOCYTES ABSOLUTE 1.1 0.9 - 2.9 thou/cu mm 12/19/2023 9:33 AM CDT [facility] MONOCYTES ABSOLUTE 0.2 <0.9 thou/cu mm 12/19/2023 9:33 AM CDT [facility] EOSINOPHILS ABSOLUTE 0.1 <0.5 thou/cu mm 12/19/2023 9:33 AM CDT [facility] NRBC 1.0 % 12/19/2023 9:33 AM CDT [facility] MANUAL NRBC PER 100 CELLS 1.00 /100 CELLS 12/19/2023 9:33 AM CDT [facility] RBC COMMENT RBC morphology appears normal 12/19/2023 9:33 AM CDT [facility] PLATELET ESTIMATE Adequate Adequate, No estimate 12/19/2023 9:33 AM CDT [facility] TOTAL COUNTED 100 12/19/2023 9:33 AM CDT [facility] Blood BLOOD SPECIMEN / Unknown Non-Lab Venipuncture / Unknown 12/19/2023 9:14 AM CDT 12/19/2023 9:15 AM CDT Milana WILLIAM HEMATOLOGY Performing Organization Address City/State/[facility] Co de Phone Number [facility] [address] [place] [address] * (ABNORMAL) BASIC METABOLIC PANEL (12/19/2023 9:14 AM CDT) SODIUM 138 137 - 145 mmol/L 12/19/2023 9:33 AM CDT [facility] POTASSIUM 4.0 3.5 - 5.1 mmol/L 12/19/2023 9:33 AM CDT [facility] CHLORIDE 103 98 - 107 mmol/L 12/19/2023 9:33 AM CDT [facility] CO2,TOTAL 26 22 - 30 mmol/L 12/19/2023 9:33 AM CDT [facility] ANION GAP 9 8 - 12 12/19/2023 9:33 AM CDT [facility] GLUCOSE,RANDOM 164(H) 74 - 106 mg/dL 12/19/2023 9:33 AM CDT [facility] CALCIUM 10.3(H) 8.4 - 10.2 mg/dL 12/19/2023 9:33 AM CDT [facility] BUN 19 9 - 20 mg/dL 12/19/2023 9:33 AM CDT [facility] CREATININE 0.91 0.66 - 1.25 mg/dL 12/19/2023 9:33 AM CDT [facility] BUN/CREAT RATIO 21(H) 10 - 20 9:33 AM CDT [facility] eGFR >90 >90 mL/min/1.7 3m2 12/19/2023 9:33 AM CDT [facility] Comment:As of 2021, eG FR is calculated by the CKD-EPI creatinine equation without race adjustment. eGFR can be influenced by muscle mass, exercise, and diet. The reported eGFR is an estimation only and is only applicable if the renal function is stable. Blood BLOOD SPECIMEN / Unknown Non-Lab Venipuncture / Unknown 12/19/2023 9:14 AM CDT 12/19/2023 9:15 AM CDT Milana WILLIAM CHEMISTRY [facility] [address] [facility] [place] [id number] from Last 3 Months Care Teams [employer] Relationship Specialty Start Date End Date Malissa Zuñiga [employer] [address] [place] [id number] PCP - General Emergency Medicine 05/21/21
--- OUTSIDE RECORDS SUMMARY | 2023-12-29 07:33 | XMS_ITS | Encounter Summary ---
Author Organization [facility] Address [address] [place] [address] Care Team Providers Care Contact Centre Supervisor Name Role Phone Elsewhere, Pcp Primary Care Provider Unavailabl e Encounter Details Date Type Department Care Team (Latest Contact Info) Description 04/22/2023 Intake [facility] Social History Tobacco Use Types Packs/Day Years Used Date Smoking Tobacco: Every Day Cigarettes Smokeless Tobacco: Never Comments:3-4 cigarettes a da y Alcohol Use Standard Drinks/Week Comments Yes 7 (1 standard drink = 0.6 oz pur e alcohol) [facility] Utilities Answer Date Recorded In the past 12 months has e [employer] TV, gas, oil, or water Stand Offer threatened to shut off services in your [...] your living situation today? [facility] to live 05/02/2023 Sex and Gender Information Value Date Recorded Sex Assigned at Not on file Gender Identity Not on file Sexual Orientation Not on file documented as of this encounter Plan of Treatment Not on file documented as of this encounter Visit Diagnoses Not on filedocumented in this encounter Care Teams Contact Centre Supervisor Relationship Specialty Start Date End Date Elsewhere, Pcp PCP - General Internal Medicine 01/10/22 documented as of this encounter
--- OUTSIDE RECORDS SUMMARY | 2023-12-29 07:33 | XMS_ITS | Encounter Summary ---
Author Organization [facility] Address [address] [place] [address] Care Team Providers Care Community Health Promoter Name Role Phone Elsewhere, Pcp Primary Care Provider Unavailabl e Reason for Visit * Reason Comments Laceration Pt comes in after rojas staining a right index finger laceration while cutting wood.. CWMS is intact. Tissue exposed. Encounter Details Date Type Department Care Team (Late st Contact Info) Description 12/11/2023 8:31 PM CDT - 12/11/2023 9:44 PM CDT Emergency [facility] [address] [place] [address] [phone] Demetrius Monroe, P.A.-C. [address] [place] [phone] Laceration Without Foreign Body Right Index Finger Without Damage To Nail Initial (Primary Dx) Discharge Disposition: Home or Self Care Social History Tobacco Use Types Packs/Day Years Used Date Smoking Tobacco: Former Cigarettes 0.3 56.1 0 04/11/1967 - 05/12/2023 Smokeless Tobacco: Never Alcohol Use Standard Drinks/Week Comments Yes 7 (1 standard drink = 0.6 oz pur e alcohol) [facility] Utilities Answer Date Recorded In the [...] your living situation today? I have a [facility] place to live 05/02/2023 Sex and Gender Information Value Date Recorded Sex Assigned at Not on file Gender Identity Not on file Sexual Orientation Not on file documented as of this encounter Last Filed Vital Signs Vital Sign Reading [...] 7.4 oz) 12/11/2023 8:33 PM CDT Height - - Body Mass Index 33.8 04/28/2023 7:37 AM VOICE OVER ARTIST documented in this encounter Discharge Instructions * Discharge Instructions* Demetrius Monroe P.A.-C. - 12/11/2023 9:30 PM CDT Your stitches need to be taken out in 10 days. Please keep the wound clean and dry. Please return to the ER if new symptoms develop, current symptoms worsen, or you becomes concerned. * Attachments The following attachments cannot be sent through Care Everywhere. * Laceration Care Adult (Syriac) * Diphtheria; Tetanus; Pertussis (DTaP or Tdap) Vaccine Injection (Syriac) documented in this encounter Medications at Time of Discharge Medication Sig Dispensed Refills Start Date End Date acetaminophen (TYLENOL) 500 mg tablet Take 2 tablets (1,000 mg total) by mouth 4 (four) times a day. 05/05/2023 aspirin 81 mg chewable tablet Chew 1 tablet every morning. 04/23/2015 colchicine (COLCRYS) 0.6 mg tablet Take 1 tablet (0.6 mg total) by mouth daily. 30 tablet 2 07/27/2023 07/26/2024 ezetimibe (ZETIA) 10 mg tablet Take 1 tablet (10 mg total) by mouth daily. 90 tablet 3 07/28/2023 07/27/2024 lisinopriL (PRINIVIL,ZESTRIL) 5 mg tablet Take 5 mg by mouth daily. 06/13/2023 melatonin 5 mg tablet Take 1 tablet (5 mg total) by mouth at bedtime as needed (Sleep). 30 tablet 2 05/05/2023 metoprolol tartrate (LOPRESSOR) 50 mg tablet Take 1 tablet (50 mg total) by mouth 2 (two) times a day. 60 tablet 11 05/05/2023 MULTIVITAMIN WITH IRON ORAL Multiple Vitamins with Iron oral tablet See Instructions, one capsule per day 07/07/2013 nicotine (Nicoderm CQ) 14 mg/24 hr patch Apply 21 mg patch daily for 4-6 weeks, then taper by 7-14 mg steps every 2-[address] on file 28 patch 3 04/26/2023 nicotine (NICODERM CQ) 14 mg/24 hr patch Apply 14 mg patch daily for four to six weeks, then taper to 7 mg for two to six weeks until off. 14 patch 3 08/24/2023 nicotine (Nicoderm CQ) 21 mg/24 hr patch Apply 21 mg patch daily for 4-6 weeks, then taper by 7-14 mg steps every 2-6 weeks until off. 28 patch 3 04/26/2023 nicotine (Nicoderm CQ) 7 mg/24 hr patch Apply 21 mg patch daily for 4-6 weeks, then taper by 7-14 mg steps every 2-6 weeks until off. Pharmacy - Place on file 28 patch 3 04/26/2023 nicotine (Nicoderm CQ) 7 mg/24 hr patch Apply 21 mg patch daily for 4-6 weeks, then taper by 7-14 mg steps every 2-6 weeks until off. Pharmacy - Place on file 28 patch 3 06/14/2023 omeprazole (PriLOSEC OTC) 20 mg EC tablet Take ONE a day for GERD as needed 05/22/2018 potassium chloride (K-TAB) 20 mEq CR tablet Take 1 tablet (20 mEq total) by mouth daily. Take for 7 days with course of Lasix, continuation at discretion of PCP. 30 tablet 05/05/2023 rosuvastatin (CRESTOR) 40 mg tablet Take 1 tablet (40 mg total) by mouth daily. 90 tablet 3 07/27/2023 07/26/2024 sennosides-docusate sodium (SENOKOT-S) 8.6-50 mg per tablet Take 2 tablets by mouth 2 (two) times a day as needed for constipation. 05/05/2023 traMADoL (ULTRAM) 50 mg tablet Take 50 mg by mouth 2 (two) times a day as needed. 12/24/2020 documented as of this encounter ED Notes * Demetrius Monroe, P.A.-Garret. - 12/11/2023 9:44 PM CDT Images from the original note were not included. SUBJECTIVE CHIEF COMPLAINT/REASON FOR VISIT Laceration (Pt comes in after sustaining a right index finger laceration while cutting wood.. CWMS is intact. Tissue exposed. ) HISTORY OF PRESENT ILLNESS 68-year-old male presents ER with complaints of laceration right index finger that occurred while cutting wood shortly prior to arrival. Uncertain on tetanus date. He denies foreign body or other injuries. History provided by: Patient and significant other REVIEW OF SYSTEMS All pertinent systems reviewed and are negative except as discussed in HPI OBJECTIVE Initial Vitals Temperature 12/11/232034 36.2 ??C Pulse Rate 12/11/232034 82 Heart Rate -- Resp Rate 12/11/232034 18 Blood Pressure 12/11/232034 103/66 SpO2 12/11/232034 97 % Pain Score 12/11/232032 0 - No pain PHYSICAL EXAMINATION Musculoskeletal: Hands: Comments: Exam of the remainder of the right upper extremity is within normal limits. ASSESSMENT/PLAN Assessment and Plan Patient appears well. Based on history, physical exam, and all information gathered in the ER today; I do not suspect underlying fracture, foreign body, neurovascular compromise. . Patient's symptomsappear consistent with laceration which was repaired with sutures in the emergency department. Wound care instructions were given. Sutures out in 10 days.. Considered additional testing including imaging , but this does not appear to be indicated at this time given observable information at todays visit. I have reviewed patients previous clinic notes, ER visits, and laboratory testing. Admission does not appear to be indicate at this time, however pt's condition may change requiring repeat exami nation in the ER. Patient appears stable for continued care and work-up as inidicated as an outpatient. Patient will return to the ER if new symptoms develop, current symptoms worsen, symptoms fail to improve, patient becomes concerned. Patient discharged in good condition. . Final Diagnoses: as of 12/12/232039 Laceration Without Foreign Body Right Index Finger Without Damage To Nail Initial Demetrius Monroe, Mathew. 12/12/232040 documented in this encounter Plan of Treatment Not on file documented as of this encounter Visit Diagnoses Diagnosis Laceration Without Foreign Body Right Index Finger Without Damage To Nail Initial- Primary documented in this encounter Administered Medications Inactive Administered Medications - up to 3 most recent administrations Medication Order MAR Action Action Date Dose Rate Site lidocaine 10 mg/mL (1 %) injection 10 mL (Xylocaine) 10 mL, infiltration, Once, On 12/11/23 at 2049, For 1 dose Given 12/11/2023 8:55 PM CDT 10 mL documented in this encounter Active and Recently Administered Medications Times are shown in CDT. Scheduled Medication Order 12/09/2023 12/10/2023 12/11/2023 lidocaine 10 mg/mL (1 %) injection 10 mL (Xylocaine) (COMPLETED) 10 mL, infiltration, Once, On 12/11/23 at 2049, For 1 dose 2054 (Given - Provid er: Demetrius Monroe P.A.-C. - Comment: Given to STEWART Monroe for administration) documented in this encounter Additional Health Concerns Assessment Noted Time PHQ-9 Depression Total Score: 6 05/17/19 24 8:51 AM VOICE OVER ARTIST documented as of this encounter Care Teams Community Health Promoter Relationship Specialty Start Date End Date Elsewhere, Pcp PCP - General Internal Medicine 01/10/22 documented as of this encounter
--- NOTE | 2023-12-29 08:00 | MR_ITS ---
[address] [address] Phone:?[phone] Fax:?[phone] Referring Physician Information: Familia Nobles M.D. [address] [address] Phone:?[phone] Fax:?[phone] Patient:Piedad Arambula D.O.B:?1955 Sex:?Male Phone:?[phone] [facility] MRN:?[id number] Exam Date:?12/29/2023 EXAM: MRI of the RIGHT KNEE, without contrast CLINICAL HISTORY: Strain of right quadriceps muscle. Evaluate for quadriceps tendon partial tear of the right knee. COMPARISONS: Plain radiographs 12/26/2023. TECHNICAL: MR sequences of the right knee: sagittals: PD, PDFS coronals: PD, STIR axials: PD, T2 FS CONTRAST: None SEDATION: None FINDINGS: Bones: No fracture, bone marrow contusion, or other suspicious bone marrow signal abnormality. Patellofemoral joint: Cartilage: Intact. Retinacula: The medial and lateral retinacula are intact. Fat pads: The infrapatellar, quadriceps, and prefemoral fat pads are unremarkable. Knee joint: Effusion: Trace right knee joint effusion. Popliteal cyst: Small popliteal cyst. Intra-articular bodies: None. Posteromedial corner: The semimembranosus and pes anserine tendons are intact. Medial compartment: Medial meniscus: There is free edge fraying versus ill-defined free edge tearing of the body through posterior horn of the medial meniscus measuring approximately 2.5 cm in length best seen on coronal series 7 images 18 through 21 and sagittal series 5 images 25 through 23. No well-defined/discrete fluid intense unstable medial meniscal tear is seen. Cartilage: 1.2 x 1.2 cm area of grade III chondromalacia over the weight-bearing portion of the medial femoral condyle. Lateral compartment: Lateral meniscus: Free edge fraying of the body/posterior horn junction of the lateral meniscus. No unstable lateral meniscal tear. Cartilage: Intact. Ligaments: Anterior cruciate ligament: Intact. Posterior cruciate ligament: Intact. Medial collateral ligament: Intact. Posterior oblique ligament: Intact. Fibular collateral ligament: Intact. Posterolateral corner: The distal biceps femoris tendon, iliotibial band, popliteus tendon, popliteofibular ligament, and arcuate ligament are intact. There is edema-like signal within the proximal portion of the popliteus muscle. Extensor mechanism: Patellar tendon: Intact. Quadriceps tendon: Ill-definition and irregularity of the medial aspect of the distal quadriceps tendon/distal portion of the vastus medialis muscle raises concern for partial tearing although this is not well evaluated as pathology extends superior to the [id number] of this study. There is a 1.6 cm in craniocaudad dimension by 0.6 cm in AP dimension by 2.7 cm in transverse dimension T2/STIR hyperintense collection within the subcutaneous fat anterior to the proximal portion of the patellar tendon. There is extensive nonspecific soft tissue swelling anteriorly. IMPRESSION: 1. Ill-definition and irregularity of the medial aspect of the distal quadriceps tendon/distal portion of the vastus medialis muscle raises concern for partial tearing although this is not well evaluated as pathology extends superior to the [id number] of this study. MRI of the distal portion of the right thigh is recommended for further evaluation. 2. Free edge fraying versus ill-defined free edge tearing of the body through posterior horn of the medial meniscus measuring approximately 2.5 cm in length. No well-defined/discrete fluid intense unstable medial meniscal tear. 3. Free edge fraying of the body/posterior horn junction of the lateral meniscus. No unstable lateral meniscal tear. 4. 1.2 x 1.2 cm area of grade III chondromalacia over the weight-bearing portion of the medial femoral condyle. 5. Edema-like signal within the proximal portion of the popliteus muscle may reflect strain injury but is nonspecific. 6. A 1.6 x 0.6 x 2.7 cm T2/STIR hyperintense collection within the subcutaneous fat anterior to the proximal portion of the patellar tendon may reflect superficial infrapatellar bursitis or hematoma but is nonspecific. Additionally, extensive nonspecific soft tissue swelling anteriorly. 7. Trace knee joint effusion. Small popliteal cyst. 8. No ligamentous injury of the right knee. RCB Electronically signed on 12/29/2023 11:22:00 AM by Tomas Kim M.D.
--- NOTE | 2023-12-29 08:45 | MR_ITS ---
[address] [address] Phone:?[phone] Fax:?[phone] Referring Physician Information: Familia Nobles M.D. [address] [facility] [address] Phone:?[phone] Fax:?[phone] Patient:Piedad Arambula D.O.B:?1955 Sex:?Male Phone:?[phone] [facility] MRN:?[id number] Exam Date:?12/29/2023 EXAM: MRI of the RIGHT SHOULDER WITHOUT CONTRAST CLINICAL HISTORY: Ongoing right shoulder pain. COMPARISONS: Plain radiographs 12/26/2023. 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 No subchondral or articular collapse is seen. Coracoacromial arch: Acromion: No os acromiale. Type I-II acromion. Acromiohumeral space: Not well evaluated because of motion artifact. Acromioclavicular joint: Mild to moderate degenerative changes. Coracoclavicular ligament: The coracoclavicular ligament is intact. Rotator cuff muscles/tendons: Supraspinatus: Mild tendinopathy and possible low-grade partial-thickness tearing of the supraspinatus tendon are suspected although it must be noted that evaluation is substantially compromised by marked motion artifact. No muscular atrophy. Infraspinatus: The infraspinatus tendon and muscle are intact. Teres minor: The teres minor tendon and muscle are intact. Subscapularis: A 1.4 x 1.4 cm low-grade partial-thickness undersurface tear of the superior portion of the subscapularis tendon is suspected although it must be noted that evaluation is compromised by marked motion artifact. No muscular atrophy. Labrum and glenohumeral joint: Fraying and tearing of most of the labrum are suspected although it must be noted that evaluation is compromised by marked motion artifact and nonarthrogram technique. There is a 4 x 6 x 6 mm inferior paralabral cyst best seen on coronal series 4 image 17. Physiologic amount of joint fluid. Partial-thickness chondral loss within the right glenohumeral joint is not although it must be noted that the cartilage is not well evaluated because of nonarthrogram technique and marked motion artifact. Proximal biceps tendon, long head and short heads: The long head of the biceps tendon appears predominantly intact although evaluation is compromised by marked motion artifact. The short head is intact. Bursae: Subacromial/subdeltoid: No convincing subacromial bursal thickening/bursitis. Subcoracoid: No convincing subcoracoid bursal thickening/bursitis. IMPRESSION: 1. 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 No subchondral or articular collapse. 2. A 1.4 x 1.4 cm low-grade partial-thickness undersurface tear of the superior portion of the subscapularis tendon is suspected although it must be noted that evaluation is compromised by marked motion artifact. 3. Mild tendinopathy and possible low-grade partial-thickness tearing of the supraspinatus tendon are suspected although it must be noted that evaluation is substantially compromised by marked motion artifact. No well-defined/discrete fluid intense retracted supraspinatus tendon tear. 4. No rotator cuff muscular atrophy. 5. Fraying and tearing of most of the labrum are suspected although it must be noted that evaluation is compromised by marked motion artifact and nonarthrogram technique. 4 x 6 x 6 mm inferior paralabral cyst. Partial-thickness chondral loss within the right glenohumeral joint is not excluded although it must be noted that the cartilage is not well evaluated because of nonarthrogram technique and marked motion artifact. 6. The long head of the biceps tendon appears predominantly intact although evaluation is compromised by marked motion artifact. 7. Mild to moderate acromioclavicular joint osteoarthritis. RCB Electronically signed on 12/29/2023 12:20:00 PM by Tomas Kim M.D.
== END 2023-12-29 07:28 | disposition home or self-care (01) ==
LOC: MRI 07:29
PROVIDERS: PCP Nurse Practitioner Family; Visit Provider Orthopaedic Surgery Sports Medicine
DX: M25.511 Pain in right shoulder (principal); S46.011A Strain of muscle(s) and tendon(s) of the rotator cuff of right shoulder, initial encounter; M75.101 Unspecified rotator cuff tear or rupture of right shoulder, not specified as traumatic; M19.011 Primary osteoarthritis, right shoulder; S76.119A Strain of unspecified quadriceps muscle, fascia and tendon, initial encounter; S83.242A Other tear of medial meniscus, current injury, left knee, initial encounter; M94.262 Chondromalacia, left knee; M25.462 Effusion, left knee; M70.52 Other bursitis of knee, left knee
CPT/HCPCS: 73221; 73721

== ENCOUNTER 2024-03-01 13:00 | Outpatient (CLI) | payer MEDICARE, SELFPAY | END 2024-03-01 13:01 | disposition home or self-care (01) | PROVIDERS: PCP Nurse Practitioner Family; Visit Provider Nurse Practitioner Family | DX: Z13.6 Encounter for screening for cardiovascular disorders (principal); R79.89 Other specified abnormal findings of blood chemistry | CPT/HCPCS: 80061; 80076 ==

== ENCOUNTER 2024-03-28 15:03 | Outpatient (CLI) | payer OTHER, SELFPAY ==
--- NOTE | 2024-03-28 15:30 | MR_ITS ---
[address] [address] Phone:?[phone] Fax:?[phone] Referring Physician Information: Familia Nobles M.D. [address] [facility] [address] Phone:?[phone] Fax:?[phone] Patient:Piedad Arambula D.O.B:?1955 Sex:?Male Phone:?[phone] [facility] MRN:?[id number] Exam Date:?03/28/2024 EXAM: MR CERVICAL SPINE WITHOUT CONTRAST CLINICAL INFORMATION: Evaluate for spinal stenosis or neural impingement. TECHNICAL INFORMATION: Multiplanar multisequence imaging obtained in the cervical spine. Contrast:None Sedation:None COMPARISON: Cervical MRI in 2021. INTERPRETATION: Osseous structures/Alignment:?Normal cervical lordotic alignment. Mild to moderate chronic anterior wedging of the T1 vertebral body. No marrow edema. Facet joints:?Mild to moderate facet degeneration C2-3 through C4-5 and more prominent on the right at C7-T1. Component of mild inflammation right C3-4 and left C4-5 joints. Craniocervical junction/cord:?Normal craniocervical junction with no Chiari malformation. Normal cord signal intensity with no intrinsic mass. Extraspinal findings:?No abnormalities identified. At C1-2, degenerative changes with marrow edema involving the dens and anterior C2 level. Associated ligamentous thickening without neural compromise. Marrow edema extends into the lateral C1 articular processes with no significant underlying articular degenerative changes. At C2-3, no disc herniation or cord impingement. Mild right foraminal stenosis. Patent left nerve root canal. At C3-4, bulge/osteophyte contacts the dural sac with no cord impingement. Moderate right/[id number]-pn-mdguuvat left foraminal stenosis. At C4-5, disc bulge contacts the dural sac with no cord impingement. Moderate severe left/moderate right foraminal stenosis. At C5-6, bulge/2 mm protrusion contacts the cord with mild central canal stenosis. Moderate right/mild left foraminal stenosis. At C6-7, 2.5 mm broad-based protrusion contacts the cord with overall mild central canal stenosis. Mild bilateral foraminal stenosis. At C7-T1, disc bulge indents the dural sac with no cord compression. Mild right foraminal stenosis. Sections through the upper thoracic spine demonstrate no neural compromise. CONCLUSION: 1. Degenerative/inflammatory-type changes C1-C2 with marrow edema, new from prior imaging. 2. Multilevel degenerative foraminal stenosis; moderate severe left C4-5 and moderate C3-4, C5-6. 3. Mild central canal stenosis with cord abutment C5-6/C6-7. 4. Mild/moderate facet degenerative changes with component of mild inflammation right C3-4/left C4-5. Electronically signed on 03/29/2024 10:56:00 AM by Wilber Stewart M.D.
== END 2024-03-28 15:04 | disposition home or self-care (01) ==
LOC: MRI 15:04
PROVIDERS: PCP Nurse Practitioner Family; Visit Provider Orthopaedic Surgery Sports Medicine
DX: M54.2 Cervicalgia (principal); M48.02 Spinal stenosis, cervical region; M50.81 Other cervical disc disorders, high cervical region
CPT/HCPCS: 72141

== ENCOUNTER 2024-07-24 16:33 | Outpatient (CLI) | payer MEDICARE, BC, SELFPAY | END 2024-07-24 16:34 | disposition home or self-care (01) | PROVIDERS: PCP Nurse Practitioner Family; Visit Provider Nurse Practitioner Family | DX: Z12.5 Encounter for screening for malignant neoplasm of prostate (principal); E78.5 Hyperlipidemia, unspecified; I10 Essential (primary) hypertension | CPT/HCPCS: 80053; 80061; 85025; G0103 ==

== ENCOUNTER 2024-07-31 13:23 | Outpatient (CLI) | payer MEDICARE, BC, SELFPAY ==
[2024-07-31 22:10] LABS: Strep A DNA Probe* NOT DETECTED (Not Detectd)
== END 2024-07-31 13:24 | disposition home or self-care (01) ==
LOC: KYNREF 13:23
PROVIDERS: PCP Nurse Practitioner Family; Visit Provider Nurse Practitioner Family
DX: J02.9 Acute pharyngitis, unspecified (principal)
CPT/HCPCS: 87651

== ENCOUNTER 2024-08-10 07:01 | Outpatient (CLI) | payer MEDICARE, BC, SELFPAY ==
--- NOTE | 2024-08-10 07:15 | CRLHL7_ITS ---
For Patients: As a result of the Century Cures Act, medical imaging exams and procedure reports are released immediately into your electronic medical record. You may view this report before your referring provider. If you have questions, please contact your health care provider. Examination: US abdominal aorta Indication: Abdominal aortic aneurysm screening. Technique: Chacon scale and color Doppler images of the aorta and common iliac arteries are obtained. Comparison: None Findings: Proximal aorta: 3.0 x 3.0 cm Mid aorta: 2.1 x 2.3 cm Distal aorta: 2.0 x 2.1 cm Right common iliac artery: 0.3 x 1.3 cm Left common iliac artery: 1.3 x 1.3 cm Recommended imaging interval for ectatic aorta: 3.0-3.4 cm: 3 years Impression: Proximal abdominal aorta measures 3.0 cm. Dictated by Marcus Olivares MD @ 08/10/2024 10:05:09 AM (Electronically Signed)
--- NOTE | 2024-08-10 08:00 | CRLHL7_ITS ---
For Patients: As a result of the Century Cures Act, medical imaging exams and procedure reports are released immediately into your electronic medical record. You may view this report before your referring provider. If you have questions, please contact your health care provider. INDICATION: Lung cancer screening. TECHNIQUE: Low-dose lung cancer screening non-contrast CT chest. Dose reduction techniques were used. COMPARISON: None. FINDINGS: NODULES: Few tiny micronodules. There is a 4 millimeter left perifissural nodule . 5 millimeter perifissural nodule on the left 74 9 millimeter nodule near the right costophrenic angle 3106 LUNGS AND PLEURA: Normal. MEDIASTINUM: Ectasia of the ascending thoracic aorta measuring 3.7 centimeters median sternotomy. The heart is enlarged. CORONARY ARTERY CALCIFICATION: Present. LIMITED UPPER ABDOMEN: Cholecystectomy. Fatty liver. MUSCULOSKELETAL: Ruslan streak artifact from left humeral arthroplasty IMPRESSION: 1. 9 millimeter right costophrenic angle nodule. Additional left perifissural nodules and micronodules. Consultation/consideration LUNG-RADS CATEGORY: 4A: Suspicious. RADIOLOGIST RECOMMENDATION: (Lungrads 4A) Low-dose CT chest in 3 months. Alternatively, PET/CT may be used if there is a greater than or equal to 8 mm solid component. Please note that all CT scans at this facility use dose modulation, iterative reconstruction, and/or weight-based dosing when appropriate to reduce radiation dose to as low as reasonably achievable. Dictated by Marilyn Cardenas MD @ 08/13/2024 6:27:25 AM (Electronically Signed)
== END 2024-08-10 07:02 | disposition home or self-care (01) ==
LOC: US 07:02
PROVIDERS: PCP Nurse Practitioner Family; Visit Provider Nurse Practitioner Family
DX: Z12.2 Encounter for screening for malignant neoplasm of respiratory organs (principal); R91.8 Other nonspecific abnormal finding of lung field; Z87.891 Personal history of nicotine dependence; Z13.6 Encounter for screening for cardiovascular disorders
CPT/HCPCS: 71271; 76706

== ENCOUNTER 2024-11-16 07:55 | Outpatient (CLI) | payer MEDICARE, BC, SELFPAY ==
--- NOTE | 2024-11-16 08:00 | CRLHL7_ITS ---
For Patients: As a result of the Century Cures Act, medical imaging exams and procedure reports are released immediately into your electronic medical record. You may view this report before your referring provider. If you have questions, please contact your health care provider. INDICATION: 3 MONTH FOLLOW UP OF LUNG SCREENING TECHNIQUE: Low-dose lung cancer screening non-contrast CT chest. Dose reduction techniques were used. COMPARISON: 08/10/2024 FINDINGS: NODULES: Stable 9 millimeter nodule right lower lobe adjacent to the hemidiaphragm, . Small 3 millimeter or less nodules left lung unchanged. LUNGS AND PLEURA: Mild areas of scarring. MEDIASTINUM: Atherosclerotic changes. Postop changes to the sternum with incomplete osseous bridging, as before. CORONARY ARTERY CALCIFICATION: Present. LIMITED UPPER ABDOMEN: Gallbladder absent. MUSCULOSKELETAL: No fracture. IMPRESSION: Stable 9 millimeter right costophrenic angle nodule. LUNG-RADS CATEGORY: 2: Benign. RADIOLOGIST RECOMMENDATION: Continue annual screening, if eligible, with low-dose CT chest in 12 months. Please note that all CT scans at this facility use dose modulation, iterative reconstruction, and/or weight-based dosing when appropriate to reduce radiation dose to as low as reasonably achievable. Dictated by Marcus Olivares MD @ 11/16/2024 12:10:08 PM (Electronically Signed)
== END 2024-11-16 07:56 | disposition home or self-care (01) ==
LOC: CT 07:55
PROVIDERS: PCP Nurse Practitioner Family; Visit Provider Nurse Practitioner Family
DX: Z12.2 Encounter for screening for malignant neoplasm of respiratory organs (principal); R91.1 Solitary pulmonary nodule; Z87.891 Personal history of nicotine dependence
CPT/HCPCS: 71250

== ENCOUNTER 2025-02-11 11:35 | Outpatient (CLI) | payer MEDICARE, BC, SELFPAY ==
--- NOTE | 2025-02-11 12:32 | P.ANES_ITS ---
Anesthesia Charges Start Date/Time Anesthesia Start Date: 02/11/25 Anesthesia Start Time: 12:08 Stop Date/Time Anesthesia Stop Date: 02/11/25 Anesthesia Stop Time: 12:26 Summary Extremes of Age - Over 70 or under 1: MDA Coding CPT Codes CPT Codes: ANES UPR GI NDSC PX NOS - 94500 ([id number]) P3 - PATIENT W/SEVERE SYS DISEASE, QK - HEALTH CARE FACILITY ADMINISTRATOR 2-4 CNCRNT ANES PROC, QX - PROCESS CONTROL BOARD OPERATOR SVC W/ MD MED DIRECTION Additional Codes: Summary - Extremes of Age - Over 70 or under 1: MDA ([id number])
--- NOTE | 2025-02-11 12:32 | W.ANESCHARGE ---
Anesthesia Charges Start Date/Time Anesthesia Start Date: 02/11/25 Anesthesia Start Time: 12:08 Stop Date/Time Anesthesia Stop Date: 02/11/25 Anesthesia Stop Time: 12:26 Summary Extremes of Age - Over 70 or under 1: MDA Coding CPT Codes CPT Codes: ANES UPR GI NDSC PX NOS - 87922 ([id number]) P3 - PATIENT W/SEVERE SYS DISEASE, QK - ELASTIC YARN TWISTER HELPER 2-4 CNCRNT ANES PROC, QX - INCOME TAX ANALYST SVC W/ MD MED DIRECTION Additional Codes: Summary - Extremes of Age - Over 70 or under 1: MDA ([id number])
--- NOTE | 2025-02-11 12:37 | P.ANES_ITS ---
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
--- NOTE | 2025-02-11 12:37 | W.ANESCHARGE ---
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
== END 2025-02-11 11:36 | disposition home or self-care (01) ==
LOC: OP CLINIC 11:35
PROVIDERS: PCP Nurse Practitioner Family; Visit Provider Internal Medicine
DX: K22.70 Barrett's esophagus without dysplasia (principal)
CPT/HCPCS: 00731; 43239; 88305; 99100; J2704; J3490